=== PATIENT | female | born 1940 | race Caucasian/White ===

== ENCOUNTER 2018-12-20 08:13 | Observation (INO) | payer OTHER ==
--- OUTSIDE RECORDS SUMMARY | 2018-12-20 08:17 | XMS REPORT | Clinical Summary ---
:1940 Author Organization [facility] Address [address] [place] [address] Care Team Providers Name Role Phone Sharad Martinez MD Primary Care Provider Allergies Active Allergy Reactions Severity Noted Date Comments Olmesartan Penicillins Medications Medication Sig Dispensed Refills Start Date End Date Status allopurinol Take 100 mg by 3 03/20/2017 Active (ZYLOPRIM) 100 MG mouth once tablet daily. BROVANA 15 mcg/2 USE 1 VIAL IN 2 04/03/2017 Active mL solution for NEBULIZER EVERY nebulization 12 HOURS atorvastatin TAKE 1 TABLET 3 03/18/2017 Active (LIPITOR) 20 MG BY MOUTH EVERY tablet DAY AFTER EVENING MEAL azithromycin Take 250 mg by 2 03/18/2017 Active (ZITHROMAX) 250 MG mouth once tablet daily. budesonide USE 1 VIAL IN 2 03/13/2017 Active (PULMICORT) 0.5 NEBULIZER EVERY mg/2 mL nebulizer 12 HOURS solution carbidopa-levodopa TAKE 1 TABLET 3 04/03/2017 Active (SINEMET) 25-[address] 4 mg per tablet TIMES EVERY DAY FOR RESTLESS LEG SYNDROME clonIDINE TAKE 2 TABLETS 3 04/15/2017 Active (CATAPRES) 0.1 MG BY MOUTH IN THE tablet MORNING AND EVENING AND 1 TABLET AT NOON gabapentin Take 600 mg by 0 02/11/2017 Active (NEURONTIN) 600 mg mouth 4 (four) tablet times a day. GLUCOSAM SUL glucosamine-cho 0 Active NA/CHONDR ndroitn sulf.Na (GLUCOSAMINE-CHOND ROITN SULF.NA ORAL) flaxseed 1,000 mg flaxseed 0 Active capsule aspirin (ECOTRIN) Take 81 mg by 0 Active 81 MG enteric mouth daily. coated tablet amLODIPine Take 1 tablet 180 tablet 3 04/21/2017 Active (NORVASC) 5 mg (5 mg total) by tablet mouth 2 (two) times a day. losartan (COZAAR) TAKE 1 TABLET 30 tablet 0 12/17/2018 Active 100 MG tablet BY MOUTH EVERY DAY losartan (COZAAR) Take 1 tablet 90 tablet 3 04/21/2017 Discontinued 100 MG tablet (100 mg total) 8 by mouth daily. losartan (COZAAR) Take 1 tablet 90 tablet 1 03/18/2018 Discontinued 100 MG tablet (100 mg total) 9 by mouth daily. losartan (COZAAR) TAKE 1 TABLET 30 tablet 0 09/09/2018 Discontinued 100 MG tablet BY MOUTH EVERY 9 DAY losartan (COZAAR) TAKE 1 TABLET 30 tablet 0 10/07/2018 Discontinued 100 MG tablet BY MOUTH EVERY 9 DAY losartan (COZAAR) TAKE 1 TABLET 30 tablet 0 11/22/2018 Discontinued 100 MG tablet BY MOUTH EVERY 9 DAY Active Problems Problem Noted Date HLD (hyperlipidemia) 04/21/2017 Essential hypertension 04/21/2017 Carotid artery disease 04/21/2017 Aortic valve stenosis 04/21/2017 Abnormal EKG 04/21/2017 Dizziness 04/21/2017 Bilateral carotid bruits 04/21/2017 Chest pain 04/21/2017 AVD (aortic valve disease) 04/21/2017 Encounters Date Type Specialty Care Team Description 12/17/2018 Refill Cardiology Enmanuel Fisher MD Med Refill 11/19/2018 Refill Cardiology Enmanuel Fisher MD Med Refill 11/05/2018 Refill Cardiology Enmanuel Fisher MD Med Refill 10/07/2018 Refill Cardiology Enmanuel Fisher MD Med Refill 09/20/2018 Hospital Encounter Radiology Song Puente MD Preop testing 09/20/2018 Transcribe Orders Radiology System, Provider Not Preop testing ( Primary In, Dx) Song Puente MD 09/09/2018 Refill Cardiology Enmanuel Fisher MD Med Refill 03/18/2018 Refill Cardiology Felix, Med Refill ARIELLA Venegas after 12/19/2017 Social History Tobacco Use Types Packs/Day Years Used Date Never Assessed Sex Assigned at Date Recorded Not on file Job Start Date Occupation Industry Not on file Not on file Not on file Travel History Travel Start Travel End No recent travel history available. Last Filed Vital Signs Not on file Plan of Treatment Date Type Specialty Care Team Description 01/11/2019 Office Visit Cardiology Enmanuel Fisher MD [address] [address] Health Maintenance Due Date Last Done Comments SHINGLES VACCINES (#1) 1989 65+ PNEUMOCOCCAL VACCINE (1 of 2 - PCV13) 2004 PNEUMOCOCCAL POLYSACCHARIDE VACCINE AGE 65 AND OVER 2004 INFLUENZA VACCINE 04/07/2019 Procedures Procedure Name Priority Date/Time Associated Diagnosis Comments XR CHEST 2 VW Routine 09/20/2018 11:59 AM Preop testing Results for this [facility]I SPECIALIST procedure are in the results section. after 12/19/2017 Results XR Chest 2 Vw (09/20/2018 11:59 AM QI SPECIALIST) Narrative Performed At EXAMINATION:XR CHEST 2 VW RADIANT CLINICAL HISTORY:Z01.818 Encounter for other preprocedural examination, PREOP COMPARISON:2 view chest from 02/16/2017 IMPRESSION: PA and lateral radiographs of the chest was submitted for interpretation. Vague airspace disease is seen within the right middle lobe which is nonspecific and can be better evaluated with CT chest. This may represent scarring, however, appears slightly more prominent on today's examination than prior. No pleural effusion or pneumothorax. No midline shift. The mediastinal contours and cardiac silhouette are unchanged. Atherosclerotic disease. The bones are unremarkable. Osteopenia is noted. Changes consistent with prior vertebroplasty are seen at the level of L1. [facility] [id number] Procedure Note Hm Interface, Radiology Results Incoming - 09/20/2018 12:06 PM QI SPECIALIST EXAMINATION: XR CHEST 2 VW CLINICAL HISTORY: Z01.818 Encounter for other preprocedural examination, PREOP COMPARISON: 2 view chest from 02/16/2017 IMPRESSION: PA and lateral radiographs of the chest was submitted for interpretation. Vague airspace disease is seen within the right middle lobe which is nonspecific and can be better evaluated with CT chest. This may represent scarring, however, appears slightly more prominent on today's examination than prior. No pleural effusion or pneumothorax. No midline shift. The mediastinal contours and cardiac silhouette are unchanged. Atherosclerotic disease. The bones are unremarkable. Osteopenia is noted. Changes consistent with prior vertebroplasty are seen at the level of L1. [facility] [id number] Performing Organization Address City/State/Zipcode Phone Number [id number] [place] [address] after 12/19/2017 Insurance Payer Benefit Plan / Group Subscriber ID Type Phone Address A[employer]NA MEDICARE AETNA MEDICARE HMO/PPO [facility] xxxxxxxx HMO Advance Directives Patient has advance care planning documents on file. For more information, please contact:[id number] [place] [address]
--- OUTSIDE RECORDS SUMMARY | 2018-12-20 08:17 | XMS REPORT ---
:1940 Author Organization [facility] Address [address] Sosa [address] [place] [id number] Care Team Providers Name Role Phone Unavailable Unavailable Unavailable Payers Payer Name Policy Type Policy Number Effective Date Expiration Date Problems This patient has no known problems. Allergies, Adverse Reactions, Alerts Allergy Name Allergy Status Severity Reaction(s) Onset Inactive Treating Comments Type Date Date Clinician Penicillins DA Active DC 2018-09 00:00:0 0 adhesive DA Active MO 2018-09 00:00:0 0 olmesartan DA Active MO 2018-09 00:00:0 0 Penicillins DA Active DC 2015-02 00:00:0 0 olmesartan DA Active MO 2015-02 00:00:0 0 Medications This patient has no known medications.
[2018-12-20 09:06] LABS: Absolute Lymphocytes (CBC) 2.2 K/uL (0.7-4.9); Absolute Neutrophil 6.8 K/uL (1.8-8.0); Basophils % 0.9 % (0-1.3); Eosinophils % 2.6 % (0-4.4); Hematocrit 31.9 % (36.0-45.0); MPV 8.9 fL (7.6-11.3); Monocytes % 9.6 % (3.3-12.3); RBC Red Blood Cell Count 3.48 M/uL (3.86-4.86)
[2018-12-20] MEDS ORDERED: CIPROFLOXACIN 400mg IV 0 MG/0 ML BAG IV ONE (09:07)
[2018-12-20] MEDS ORDERED: METRONIDAZOLE 500mg IVPB 500 MG/100 ML BAG IV ONE (09:07)
[2018-12-20 09:10] LABS: Protime INR 0.96
--- NOTE | 2018-12-20 09:10 | RAD REPORT ---
EXAM DESCRIPTION: RAD - Chest Single View - 12/20/2018 9:03 am CLINICAL HISTORY: ABDOMINAL DISTENTION Chest pain. COMPARISON: Chest Pa And Lat (2 Views) dated 12/01/2017; Chest Single View dated 10/28/2016; CHEST PA AND LAT 2 VIEW dated 08/28/2013; CHEST SINGLE VIEW dated 07/18/2013 FINDINGS: Portable technique limits examination quality. Emphysematous changes are present throughout the lungs. Ill-defined opacities in right lower lobe not ed suspicious for developing pneumonia. The heart is normal in size. No displaced fractures. IMPRESSION: Developing right lower lobe pneumonia.
--- NOTE | 2018-12-20 09:35 | RAD REPORT ---
EXAM DESCRIPTION: US - Abdomen Exam Limited - 12/20/2018 9:15 am CLINICAL HISTORY: ABD PAIN COMPARISON: Abdomen Exam Complete dated 05/28/2016 FINDINGS: The gallbladder demonstrates no gallstones. No pericholecystic fluid or gallbladder wall t hickening. The common bile duct is mildly prominent measuring 8-9 mm.. The liver demonstrates no findings of intrahepatic biliary dilatation. IMPRESSION: No evidence of gallstones. Upper limit of normal CBD for age.
[2018-12-20 09:44] LABS: AST/SGOT 14 U/L (15-37); Albumin 3.4 g/dL (3.4-5.0); Alkaline Phosphatase 78 U/L (45-117); BUN Blood Urea Nitrogen 54 mg/dL (7-18); Bicarbonate 26 mmol/L (21-32); Bilirubin Direct 0.1 mg/dL (0-0.2); Bilirubin Total 0.3 mg/dL (0.2-1.0); Glucose Level 99 mg/dL (74-106); Lipase 125 U/L (73-393); Magnesium 2.7 mg/dL (1.8-2.4); NT PRO-BNP 438 pg/mL (<450); Potassium 4.8 mmol/L (3.5-5.1); Sodium Level 144 mmol/L (136-145); Troponin (Emerg Dept Use Only) < 0.02 ng/mL (0.0-0.045)
[2018-12-20 09:46] LABS: ALT/SGPT < 6 U/L (12-78)
[2018-12-20] MEDS ORDERED: Levofloxacin500mg IV 500 MG/100 ML BAG IV ONE (10:13)
--- NOTE | 2018-12-20 10:57 | RAD REPORT ---
EXAM DESCRIPTION: CT - Abdomen Pelvis Wo Contrast - 12/20/2018 10:43 am CLINICAL HISTORY: Abdominal pain with vomiting for several months COMPARISON: 11/2017 TECHNIQUE: Computed axial tomography of the abdomen and pelvis was obtained. IV was not requested. O ral contrast was given. Coronal reconstructions performed. All CT scans are performed using dose optimization technique as appropriate and may include automated exposure control or mA/KV adjustment according to patient size. FINDINGS: The evaluation of solid organs and vessels is limited secondary to the lack of contrast a dministration. Small renal cysts. Small hepatic cysts. Splenic granulomata. Atrophic pancreas. An adrenal mass is not seen. A moderate amount of stool is present throughout the colon. The cecum is mildly distended measuring 7 millimeters There is no evidence of diverticulitis. Moderate anterior subluxation of L5 on S1 with obliteration of the disc space. Spondylolysis L5. Ceme nt has been placed into an old compression fracture of L1. [id number] compression of the spinal canal present Mild right upper lobe consolidation. Mild to moderate patchy right lower lobe opacities. IMPRESSION: Right pneumonia Moderate amount stool within the colon. Mild cecal distention
--- NOTE | 2018-12-20 11:03 | EDPHYS ---
Physician Documentation [facility] Name: Ninfa Olsen Age: 78 yrs Sex: Female : 1940 Arrival Date: 12/20/2018 Time: 08:14 Bed 18 Private MD: Connie Martinez C ED Physician Mg Elizalde HPI: 12/20 08:47 This 78 yrs old Female presents to ER via Ambulatory with complaints of aj Abdominal Pain. 08:47 The patient presents with abdominal pain abdominal distention in the epigastric area, aj in the upper abdomen, in the lower abdomen. Onset: The symptoms/episode began/occurred 2 day(s) ago. The patient presents to the emergency department with nausea. Possible causes: unknown. The symptoms are aggravated by movement, pressure, food , The symptoms are alleviated by nothing. remaining still. The symptoms do not radiate. Associated signs and symptoms: Pertinent positives: chest pain. Historical: - Allergies: 08:17 Benicar; ss 08:17 PENICILLINS; ss - Home Meds: 08:25 clonidine HCl 0.1 mg Oral tab [Active]; atorvastatin 20 mg oral tab 1 tab once daily ss [Active]; carbidopa-levodopa 25/200 mg 1 tab at 1530 and 1 tab at bedtime Oral tab [Active]; allopurinol 100 mg Oral tab 1 tab once daily [Active]; gabapentin oral oral [Active]; hydralazine 10 mg Oral tab 1 tab 2 times per day [Active]; aspirin 81 mg Oral TbEC 1 tab once daily [Active]; restasis [Active]; trelegy INH [Active]; Ranitidine Oral once daily [Active]; O2 at night 2L NC [Active]; tramadol HCL 50 mg PRN [Active]; nisoldipine 8.5 mg oral Tb24 1 tab once daily [Active]; - PMHx: 08:17 COPD; Hypertension; ss 08:25 High Cholesterol; ss - PSHx: 08:17 feet surgery; Glaucoma; Bladder suspension; Hysterectomy; shoulder; ss - Immunization history:: Adult Immunizations up to date. - Social history:: Smoking status: Patient/guardian denies using tobacco, but has a distant history of tobacco abuse. - Ebola Screening: : Patient denies exposure to infectious person Patient denies travel to an Ebola-affected area in the 21 days before illness onset. - Family history:: not pertinent. ROS: 08:47 Constitutional: Negative for fever, chills, and weight loss, Eyes: Negative for injury, aj pain, redness, and discharge, ENT: Negative for injury, pain, and discharge, Neck: Negative for injury, pain, and swelling, Cardiovascular: Negative for chest pain, palpitations, and edema, Respiratory: Negative for shortness of breath, cough, wheezing, and pleuritic chest pain, Back: Negative for injury and pain, : Negative for injury, bleeding, discharge, and swelling, MS/Extremity: Negative for injury and deformity, Skin: Negative for injury, rash, and discoloration, Neuro: Negative for headache, weakness, numbness, tingling, and seizure, Psych: Negative for depression, anxiety, suicide ideation, homicidal ideation, and hallucinations, Allergy/Immunology: Negative for hives, rash, and allergies, Endocrine: Negative for neck swelling, polydipsia, polyuria, polyphagia, and marked weight changes, Hematologic/Lymphatic: Negative for swollen nodes, abnormal bleeding, and unusual bruising. 08:47 Abdomen/GI: Positive for abdominal pain, abdominal cramps, abdominal distension, of the right upper quadrant, left upper quadrant, right lower quadrant and left lower quadrant. Exam: 08:47 Constitutional: This is a well developed, well nourished patient who is awake, alert, aj and in no acute distress. Head/Face: Normocephalic, atraumatic. Eyes: Pupils equal round and reactive to light, extra-ocular motions intact. Lids and lashes normal. Conjunctiva and sclera are non-icteric and not injected. Cornea within normal limits. Periorbital areas with no swelling, redness, or edema. ENT: Nares patent. No nasal discharge, no septal abnormalities noted. Tympanic membranes are normal and external auditory canals are clear. Oropharynx with no redness, swelling, or masses, exudates, or evidence of obstruction, uvula midline. Mucous membranes moist. Neck: Trachea midline, no thyromegaly or masses palpated, and no cervical lymphadenopathy. Supple, full range of motion without nuchal rigidity, or vertebral point tenderness. No Meningismus. Chest/axilla: Normal chest wall appearance and motion. Nontender with no deformity. No lesions are appreciated. Cardiovascular: Regular rate and rhythm with a normal S1 and S2. No gallops, murmurs, or rubs. Normal PMI, no JVD. No pulse deficits. Respiratory: Lungs have equal breath sounds bilaterally, clear to auscultation and percussion. No rales, rhonchi or wheezes noted. No increased work of breathing, no retractions or nasal flaring. Back: No spinal tenderness. No costovertebral tenderness. Full range of motion. Female : Normal external genitalia. Skin: Warm, dry with normal turgor. Normal color with no rashes, no lesions, and no evidence of cellulitis. MS/ Extremity: Pulses equal, no cyanosis. Neurovascular intact. Full, normal range of motion. Neuro: Awake and alert, GCS 15, oriented to person, place, time, and situation. Cranial nerves II-XII grossly intact. Motor strength 5/5 in all extremities. Sensory grossly intact. Cerebellar exam normal. Normal gait. Psych: Awake, alert, with orientation to person, place and time. Behavior, mood, and affect are within normal limits. 08:47 Abdomen/GI: Inspection: distension, Bowel sounds: hyperactive, Palpation: mild abdominal tenderness, in the right upper quadrant, left upper quadrant, right lower quadrant and left lower quadrant, Liver: no appreciated palpable abnormalities, Hernia: not appreciated. Vital Signs: 08:17 BP 161 / 73; Pulse 74; Resp 18; Temp 98.7(TE); Pulse Ox 91% on R/A; Weight 51.71 kg; ss Height 5 ft. 0 in. (152.40 cm); Pain 8/10; 10:00 BP 104 / 68; Pulse 61; Resp 17; Pulse Ox 93% on R/A; sg 12:40 BP 97 / 51; Pulse 55 MON; Resp 18; Temp 98.7; Pulse Ox 98% on R/A; sg 08:17 Body Mass Index 22.26 (51.71 kg, 152.40 cm) MDM: 08:27 Patient medically screened. [facility] 08:51 Data reviewed: vital signs, nurses notes, lab test result(s), EKG, radiologic studies, [facility] CT scan, plain films, ultrasound. 12/20 08:43 Order name: Basic Metabolic Panel; Complete Time: 10:13 [facility] 12/20 08:43 Order name: CBC with Diff; Complete Time: 09:23 [facility] 12/20 08:43 Order name: LFT's; Complete Time: 10:13 [facility] 12/20 08:43 Order name: Magnesium; Complete Time: 10:13 [facility] 12/20 08:43 Order name: NT PRO-BNP; Complete Time: 10:13 [facility] 12/20 08:43 Order name: PT-INR; Complete Time: 09:23 [facility] 12/20 08:43 Order name: Troponin (emerg Dept Use Only); Complete Time: 10:13 [facility] 12/20 08:43 Order name: XRAY Chest (1 view); Complete Time: 09:23 [facility] 12/20 08:43 Order name: Lipase; Complete Time: 10:13 [facility] 12/20 08:43 Order name: US Abdomen Limited; Complete Time: 10:13 [facility] 12/20 09:24 Order name: Blood Culture Adult (2) [facility] 12/20 10:14 Order name: CT Abd/Pelvis - Without Cont: no iv, oral only; Complete Time: 10:58 [facility] 12/20 10:56 Order name: Urine Dipstick--Ancillary (enter results) 12/20 08:33 Order name: EKG; Complete Time: 08:33 12/20 08:43 Order name: Cardiac monitoring; Complete Time: 09:01 [facility] 12/20 08:43 Order name: EKG - Nurse/Tech; Complete Time: 09:01 [facility] 12/20 08:43 Order name: IV Saline Lock; Complete Time: 09:00 [facility] 12/20 08:43 Order name: Labs collected and sent; Complete Time: 09:00 [facility] 12/20 08:43 Order name: O2 Per Protocol; Complete Time: 09:00 [facility] 12/20 08:43 Order name: O2 Sat Monitoring; Complete Time: 09:00 aj Administered Medications: 09:20 Drug: NS 0.9% 500 ml Route: IV; Rate: bolus; Site: right forearm; sg 09:24 Not Given (Duplicate Order): Cipro 400 mg 200 ml IVPB once over 60 mins aj 09:55 Drug: NS 0.9% 1000 ml Route: IV; Rate: 125 ml/hr; Site: right forearm; sg 10:00 Drug: LevaQUIN 500 mg Volume: 100 ml; Route: IVPB; Infused Over: 60 mins; Site: right sg forearm; 11:00 Drug: Flagyl 500 mg Volume: 100 ml; Route: IVPB; Rate: 200 ml/hr; Infused Over: 30 sg mins; Site: right forearm; 11:16 Drug: Xopenex 1.25 mg Route: Inhalation; sg 11:16 Drug: AtroVENT Aerosol 0.5 mg Route: Inhalation; sg 12:20 Drug: Rocephin 1 grams Route: IV; Rate: per protocol; Site: right forearm; sg 12:52 Not Given (Patient Refused): Pepcid 20 mg IVP once iw Disposition: 12/20/18 11:02 Hospitalization ordered by Connie Martinez for Inpatient Admission. Preliminary diagnosis are Pneumonia, unspecified organism, Abdominal tenderness, Constipation. - Bed requested for Telemetry/MedSurg (Inpatient). - Status is Inpatient Admission. sg - Condition is Fair. - Problem is new. - Symptoms have improved. UTI on Admission? No Signatures: Dispatcher [employer] EDMS Clementina Sosa RN RN Drew Smith RN RN Mg Elizalde MD MD cha Smirch, Shelby, RN RN Talia Block RN iw Corrections: (The following items were deleted from the chart) 10:14 08:44 Abdomen Pelvis W Con+CT.RAD.BRZ ordered. [facility] EDMS 10:17 10:14 Abdomen ordered. [facility] EDMS 12:08 11:02 Hospitalization Ordered by A Michelle WILSON for Inpatient Admission. Preliminary dw diagnosis is Pneumonia, unspecified organism; Abdominal tenderness; Constipation. Bed requested for Telemetry/MedSurg (Inpatient). Status is Inpatient Admission. Condition is Fair. Problem is new. Symptoms have improved. UTI on Admission? No. aj 13:10 12:08 12/20/2018 11:02 Hospitalization Ordered by A Michelle WILSON for Inpatient Admission. sg Preliminary diagnosis is Pneumonia, unspecified organism; Abdominal tenderness; Constipation. Bed requested for Telemetry/MedSurg (Inpatient). Status is Inpatient Admission. Condition is Fair. Problem is new. Symptoms have improved. UTI on Admission? No. dw
--- NOTE | 2018-12-20 11:03 | ER ---
Nurse's Notes [facility] Name: Ninfa Olsen Age: 78 yrs Sex: Female : 1940 Arrival Date: 12/20/2018 Time: 08:14 Bed 18 Private MD: Connie Martinez C Diagnosis: Pneumonia, unspecified organism;Abdominal tenderness;Constipation Presentation: 12/20 08:14 Presenting complaint: Patient states: upper abdominal pain x 2 days that now radiates ss towards L breast and lower abd. Denies N/V/D. Transition of care: patient was not received from another setting of care. Onset of symptoms was December 18, 2018. Risk Assessment: Do you want to hurt yourself or someone else? Patient reports no desire to harm self or others. Initial Sepsis Screen: Does the patient meet any 2 criteria? No. Patient's initial sepsis screen is negative. Does the patient have a suspected source of infection? No. Patient's initial sepsis screen is negative. Care prior to arrival: None. 08:14 Method Of Arrival: Ambulatory ss 08:14 Acuity: RILEY 3 ss Historical: - Allergies: 08:17 Benicar; ss 08:17 PENICILLINS; ss - Home Meds: 08:25 clonidine HCl 0.1 mg Oral tab [Active]; atorvastatin 20 mg oral tab 1 tab once daily ss [Active]; carbidopa-levodopa 25/200 mg 1 tab at 1530 and 1 tab at bedtime Oral tab [Active]; allopurinol 100 mg Oral tab 1 tab once daily [Active]; gabapentin oral oral [Active]; hydralazine 10 mg Oral tab 1 tab 2 times per day [Active]; aspirin 81 mg Oral TbEC 1 tab once daily [Active]; restasis [Active]; trelegy INH [Active]; Ranitidine Oral once daily [Active]; O2 at night 2L NC [Active]; tramadol HCL 50 mg PRN [Active]; nisoldipine 8.5 mg oral Tb24 1 tab once daily [Active]; - PMHx: 08:17 COPD; Hypertension; ss 08:25 High Cholesterol; ss - PSHx: 08:17 feet surgery; Glaucoma; Bladder suspension; Hysterectomy; shoulder; ss - Immunization history:: Adult Immunizations up to date. - Social history:: Smoking status: Patient/guardian denies using tobacco, but has a distant history of tobacco abuse. - Ebola Screening: : Patient denies exposure to infectious person Patient denies travel to an Ebola-affected area in the 21 days before illness onset. - Family history:: not pertinent. Screenin:15 Abuse screen: Denies threats or abuse. Denies injuries from another. Nutritional sg screening: No deficits noted. Tuberculosis screening: No symptoms or risk factors identified. Never had TB. Fall Risk None identified. Assessment: 08:18 Reassessment: patient reports that she uses O2 VIA NC at night. Baseline O2 is ss approximately 92% on RA. 08:40 General: Appears in no apparent distress. well groomed, well developed, well nourished, sg Behavior is calm, cooperative, appropriate for age. Pain: Complains of pain in abdomen Quality of pain is described as aching, tender. Neuro: Level of Consciousness is awake, alert, obeys commands, Oriented to person, place, time, Check Inspector are equal bilaterally Moves all extremities. Speech is normal, Facial symmetry appears normal. Cardiovascular: Capillary refill is brisk in bilateral fingers Patient's skin is warm and dry. Chest pain is denied. Respiratory: Airway is patent Respiratory effort is even, unlabored, Respiratory pattern is regular, symmetrical, Breath sounds are diminished in right posterior lower lobe. GI: Abdomen is round non-distended, Bowel sounds present X 4 quads. Abd is soft and non tender X 4 quads. : No signs and/or symptoms were reported regarding the genitourinary system. EENT: No signs and/or symptoms were reported regarding the EENT system. Derm: Skin is dry, Skin is normal, Skin temperature is warm. Musculoskeletal: No signs and/or symptoms reported regarding the musculoskeletal system. Vital Signs: 08:17 BP 161 / 73; Pulse 74; Resp 18; Temp 98.7(TE); Pulse Ox 91% on R/A; Weight 51.71 kg; ss Height 5 ft. 0 in. (152.40 cm); Pain 8/10; 10:00 BP 104 / 68; Pulse 61; Resp 17; Pulse Ox 93% on R/A; sg 12:40 BP 97 / 51; Pulse 55 MON; Resp 18; Temp 98.7; Pulse Ox 98% on R/A; sg 08:17 Body Mass Index 22.26 (51.71 kg, 152.40 cm) ED Course: 08:14 Patient arrived in ED. as 08:14 Connie Martinez MD is Private Physician. as 08:16 Triage completed. ss 08:17 Arm band placed on right wrist. ss 08:27 Mg Elizalde MD is Attending Physician. aj 08:44 Drew Smith, RN is Primary Nurse. sg 08:49 EKG done, by furniture technician. reviewed by Mg Elizalde MD. at1 08:54 Initial lab(s) drawn, by me, sent to lab. Inserted saline lock: 20 gauge in right dh3 antecubital area, using aseptic technique. Blood collected. 08:54 First set of blood cultures drawn by wv. 3 09:01 X-ray completed. Portable x-ray completed in exam room. Patient tolerated procedure jb2 well. 09:03 XRAY Chest (1 view) In Process Unspecified. EDMS 09:11 US Abdomen Limited In Process Unspecified. EDMS 09:15 Patient has correct armband on for positive identification. Bed in low position. Call sg light in reach. Pulse ox on. NIBP on. 09:40 Second set of blood cultures drawn by me, by venipuncture 23G to left ac. dh3 10:40 CT completed. Patient tolerated procedure well. Patient moved to CT via wheelchair. Patient moved back from CT. 10:43 CT Abd/Pelvis - Without Cont: no iv, oral only In Process Unspecified. EDMS 11:01 Connie Martinez MD is Hospitalizing Provider. aj 12:41 No provider procedures requiring assistance completed. Patient admitted, IV remains in sg place. intact, No redness/swelling at site. Administered Medications: 09:20 Drug: NS 0.9% 500 ml Route: IV; Rate: bolus; Site: right forearm; sg 09:24 Not Given (Duplicate Order): Cipro 400 mg 200 ml IVPB once over 60 mins aj 09:55 Drug: NS 0.9% 1000 ml Route: IV; Rate: 125 ml/hr; Site: right forearm; sg 10:00 Drug: LevaQUIN 500 mg Volume: 100 ml; Route: IVPB; Infused Over: 60 mins; Site: right sg forearm; 11:00 Drug: Flagyl 500 mg Volume: 100 ml; Route: IVPB; Rate: 200 ml/hr; Infused Over: 30 sg mins; Site: right forearm; 11:16 Drug: Xopenex 1.25 mg Route: Inhalation; sg 11:16 Drug: AtroVENT Aerosol 0.5 mg Route: Inhalation; sg 12:20 Drug: Rocephin 1 grams Route: IV; Rate: per protocol; Site: right forearm; sg 12:52 Not Given (Patient Refused): Pepcid 20 mg IVP once iw Outcome: 11:02 Decision to Hospitalize by Provider. [facility] 13:10 Patient left the ED. sg Signatures: Dispatcher [employer] EDDrew Horne, RN RN Mg Rievrs MD MD cha Buechter, Jesse jb2 Jones, Susan sj Martinez, Amelia as Smirch, Shelby, ANA RN Roxann Butterfield, tightening machine operator EKG Tat1 Lucero Bautista 3 Talia Block RN iw
[2018-12-20] MEDS ORDERED: IPRATROPIUM BROM 0.5MG/2.5ML ONE (11:16)
[2018-12-20] MEDS ORDERED: LEVALBUTEROL 1.25 MG/3 ML NEB ONE (11:17)
[2018-12-20] MEDS ORDERED: CEFTRIAXONE/SWI 1gm 1 GM/10 ML SYR ONE (11:17)
[2018-12-20 12:04] LABS: Urine Blood NEGATIVE (NEG); Urine Glucose NEGATIVE (NEG); Urine Protein NEGATIVE (NEG); Urine Specific Gravity 1.015 (1.005-1.030)
--- NOTE | 2018-12-20 12:19 | EKG ---
Test Date: 2018-12-20 Test Time: 08:31:07 Gum Sprayer: FILIPE MEASUREMENT RESULTS: Intervals: Rate: 60 NH: 150 QRSD: 134 QT: 418 QTc: 418 [place]: P: 69 NH: 150 QRS: -32 T: 51 INTERPRETIVE STATEMENTS: Normal sinus rhythm with sinus arrhythmia Left axis deviation Right bundle branch block Abnormal ECG Compared to ECG 10/28/2016 20:45:19 Left-axis deviation now present Electronically Signed On 12-20-18 12:18:19 CDT by Av Kramer
[2018-12-20] MEDS ORDERED: BISACODYL 10 MG RECTAL SUPP PR PRN (13:08)
[2018-12-20] MEDS ORDERED: ONDANSETRON 4 MG/2 ML VIAL IV PRN (13:08)
[2018-12-20] MEDS ORDERED: ALBUTEROL 2.5 MG/3 ML NEB SOL NEB PRN (13:08)
[2018-12-20] MEDS ORDERED: IPRATROPIUM BROM 0.5MG/2.5ML NEB PRN (13:08)
[2018-12-20] MEDS ORDERED: ACETAMINOPHEN 325 MG TABLET PO PRN (13:08)
[2018-12-20] MEDS ORDERED: MORPHINE 2 MG/ML SYR IV PRN (13:08)
[2018-12-20 13:44] VITALS: BMI 25.0
[2018-12-20] MEDS: NA CHLORIDE 0.9% 1,000 ML IV SCH (15:42)
[2018-12-20] MEDS: FAMOTIDINE 20 MG/2 ML VIAL IV SCH (21:19)
[2018-12-20] MEDS ORDERED: DIPHENHYDRAMINE 25 MG PO PRN (22:47)
[2018-12-20] MEDS ORDERED: TRAMADOL HCL 50 MG PO PRN (22:47)
[2018-12-21] MEDS: NA CHLORIDE 0.9% 1,000 ML IV SCH ×2 (01:19→08:27)
[2018-12-21 07:17] LABS: Absolute Lymphocytes (CBC) 1.6 K/uL (0.7-4.9); Absolute Neutrophil 6.5 K/uL (1.8-8.0); Basophils % 0.7 % (0-1.3); Eosinophils % 2.4 % (0-4.4); Hematocrit 32.2 % (36.0-45.0); Lymphocytes % 17.2 % (15.3-44.8); MPV 9.1 fL (7.6-11.3); Monocytes % 10.3 % (3.3-12.3); RBC Red Blood Cell Count 3.45 M/uL (3.86-4.86)
[2018-12-21 07:36] LABS: Potassium 4.3 mmol/L (3.5-5.1)
[2018-12-21] MEDS ORDERED: BISACODYL 10 MG RECTAL SUPP PR ONE (07:38)
[2018-12-21] MEDS ORDERED: POLYETHYL GLY 3350 17 GM/DOSE PO ONE (07:38)
[2018-12-21] MEDS: FAMOTIDINE 20 MG/2 ML VIAL IV SCH (08:28)
[2018-12-21 08:31] VITALS: BP 153/59; TEMP 97.2
--- NOTE | 2018-12-21 08:51 | RAD REPORT ---
EXAM DESCRIPTION: Lilliana Single View12/21/2018 6:57 am CLINICAL HISTORY: Chest pain COMPARISON: December 20 FINDINGS: Small right pleural effusion has developed. Right basilar lung opacities are without signi ficant change. No other change noted IMPRESSION: Development of a small right pleural effusion. No change in the right basilar pneumonia
[2018-12-21] MEDS ORDERED: HOME MED 1 EA UNK (Ranitidine [Zantac*] 150 MG) PO SCH (09:00)
[2018-12-21] MEDS ORDERED: ALLOPURINOL 100 MG PO SCH (09:00)
[2018-12-21] MEDS ORDERED: Levofloxacin500mg IV 500 MG/100 ML BAG IV SCH (09:00)
[2018-12-21] MEDS ORDERED: CARBIDOPA PO SCH (09:00)
[2018-12-21] MEDS ORDERED: HOME MED 1 EA UNK (Fluticasone/Umeclidin/Vilanter [Trelegy Ellipta 100-62.5-25] 1 EACH) IH SCH (09:00)
[2018-12-21] MEDS ORDERED: HYDRALAZINE HCL 10 MG PO SCH (09:00)
[2018-12-21] MEDS ORDERED: GABAPENTIN 1200 MG PO SCH (09:00)
[2018-12-21] MEDS ORDERED: CLONIDINE HCL 0.1 MG PO SCH (09:00)
[2018-12-21] MEDS ORDERED: LEVODOPA PO SCH (09:00)
[2018-12-21] MEDS ORDERED: HOME MED 1 EA UNK (Cyclosporine [Restasis] 1 DROP) EACH EYE SCH (09:00)
[2018-12-21] MEDS ORDERED: HOME MED 1 EA UNK (Aspirin Chewable [Aspirin Chewable*] 81 MG) PO SCH (09:00)
--- NOTE | 2018-12-21 09:03 | EKG ---
Test Date: 2018-12-21 Test Time: 08:14:33 Belt Line Feeder: LUCY MEASUREMENT RESULTS: Intervals: Rate: 67 NJ: 148 QRSD: 122 QT: 396 QTc: 418 [place]: P: 57 NJ: 148 QRS: -36 T: 39 INTERPRETIVE STATEMENTS: Normal sinus rhythm Left axis deviation Right bundle branch block Abnormal ECG Compared to ECG 12/20/2018 08:31:07 Sinus arrhythmia no longer present Electronically Signed On 12-21-18 09:02:47 CDT by Av Kramer
[2018-12-21 09:50] VITALS: O2SAT 95
--- NOTE | 2018-12-21 09:58 | HP ---
Date of Admission: 12/20/2018 Chief Complaint: Abdominal pain. History Of Present Illness: This is a 78-year-old pleasant female patient who has some constipation and abdominal pain, describing as cramping type pain off and on for last 3 days. She denies any feve r, chills, nausea or vomiting. No bleeding. She has chronic cough and shortness of breath with acti vity, which is nothing different than her usual baseline. After she came into emergency room, she wa s evaluated in the ER and subsequently admitted to the hospital under my service. When I saw her, he r was present with her at bedside. Allergies: TO PENICILLIN CAUSING SWELLING OF FACE AND BENICAR CAUSING SEVERE HYPOTENSION AND SYNCOPE . Medications: List reviewed. Review of Systems: GI: As mentioned above. Respiratory: As mentioned above. All other systems reviewed and negative. Past Medical History: Significant for hypertension, chronic kidney disease stage 3, COPD, impaired f asting glucose, mixed hyperlipidemia, diverticulosis, anemia due to chronic kidney disease, gastroeso phageal reflux disease, melanoma. Past Surgical History: Significant for hysterectomy and removal of melanoma from her face. Family History: Significant for colon polyps, lung cancer, congestive heart failure. Social History: Prior history of smoking, not at present time. Use of alcohol negative. Physical Examination: Vital Signs: When she first came into emergency room, vital signs included temperature 98.7, pulse 7 4, respiratory rate 18, blood pressure 161/73, 91% oxygen saturation. Height 5 feet, weight 128 poun ds. General: Awake, alert, oriented, not in distress. HEENT: Head atraumatic, normocephalic. Conjunctivae nonerythematous. Sclerae white. Mouth, no thr ush or edema noted. Ears/Nose, no mass, lesion, discharge noted. Neck: Supple. No JVD, lymph nodes, bruit, thyromegaly noted. Lungs: Presence of some rales in the right lower lung region. Not using accessory muscles of respir ation. Heart: Normal heart sounds, no murmur or gallop. Abdomen: Soft, slightly appears to be distended in the lower abdomen due to distended bladder, which was confirmed with percussion. No guarding, rigidity, tenderness. No rebound tenderness. No hepat osplenomegaly. Bowel sounds normoactive. Extremities: No leg edema. No calf tenderness. Skin: No rash, ulcer, cellulitis. Lymphatics: No lymph node enlargement in neck, supraclavicular, infraclavicular region. Neuro: No focal neurological deficit. Chest: Unremarkable. External Genitalia: Deferred. Rectal: Deferred. Laboratory Data: White count 10.4, hemoglobin 10.5, platelets 258. INR 0.96. Sodium 144, potassium 4.8, chloride 108, bicarb 26, BUN 54, creatinine 1.91, glucose 99. Liver function tests unremarkabl e. Troponin less than 0.02. Lipase 125. Urinalysis negative. Her CAT scan of the abdomen and pelv is done in the emergency room shows evidence of right-sided pneumonia, moderate amount of stool withi n colon with mild cecal distention. Chest x-ray shows right lower lobe pneumonia. Abdominal ultraso und shows no evidence of gallstones, and electrocardiogram shows normal sinus rhythm. No acute ST-T changes. Impression: 1.Pneumonia. 2.Constipation. 3.Chronic kidney disease stage 3 with acute worsening. 4.Anemia due to chronic kidney disease. 5.Chronic obstructive pulmonary disease. 6.Hypertension. 7.Mixed hyperlipidemia. 8.Impaired fasting glucose. 9.Gastroesophageal reflux disease. 10.Diverticulosis. Plan: Admit the patient to hospital for further evaluation and management of this problem. The vidal ent is appropriate for inpatient and is expected to spend 2 midnights in hospital. Home medications will be continued per order. We will give empiric antibiotics. Ambulation was encouraged. DVT prop hylaxis will be given per order. I will see her tomorrow for followup. Details and plan of treatmen t discussed with the patient. Treatment for constipation will be given, and I did discuss with her d imani about plan of treatment. MELITA/MODL Voice ID: [id number]
[2018-12-21] MEDS ORDERED: ATORVASTATIN CALCIUM 20 MG PO SCH (21:00)
--- NOTE | 2018-12-23 03:01 | DS ---
Date of Discharge: 12/21/2018 Disposition: Discharged to go home. Physical Examination: HEENT: Unremarkable. Lungs: Clear to auscultation except basal rales, unchanged. Heart: Sounds normal. Abdomen: Soft. Bowel sounds normal. No guarding, rigidity, tenderness, distention. Discharge Medications And Instructions: 1. Continue all prior home medications. 2. Take Levaquin 250 mg p.o. daily for 10 days. 3. Follow up at office in 2 weeks. 4. Senokot-S 2 tablets p.o. daily. 5. MiraLAX 17 g powder once a day as needed for constipation. Laboratory Data: Labs done during this hospitalization; white count yesterday 10.4, hemoglobin 10.5, platelets 258. Sodium yesterday was 144, potassium 4.8, chloride 108, bicarb 26, BUN 54, creatinine 1.91, glucose 99. This morning, BUN 36, creatinine 1.48, glucose 87. Troponin less than 0.02 x3. Hospital Course: A 78-year-old female patient admitted to the hospital after she came into emergency room with complaints of abdominal pain. The patient has COPD and chronic cough with shortness of breath with activity, which is chronic and unchanged. After she was evaluated in the ER, she had workup done, that included routine labs, CAT scan, chest x-ray. Her CAT scan showed evidence of constipation problem along with infiltrate in the lower lung region. Chest X also reveal such changes. The patient was given Dulcolax rectal suppository and had good results with that yesterday. I ordered another Dulcolax suppository for this morning and MiraLAX. She felt like yesterday that her abdomen was distended and this morning, she feels much better. Her abdomen is soft and nontender. The patient feels much better. Medically, she is stable for discharge and was discharged in stable condition with above- mentioned medications and instructions. Final Diagnoses: 1. Pneumonia. 2. Constipation. 3. Chronic kidney disease stage 3 with acute worsening. 4. Anemia due to chronic kidney disease. 5. Chronic obstructive pulmonary disease. 6. Hypertension. 7. Mixed hyperlipidemia. 8. Impaired fasting glucose. 9. Gastroesophageal reflux disease. 10. Diverticulosis. MELITA/MODL Voice ID: [id number] Report ID: [id number] MTDD
== END 2018-12-21 12:01 | disposition home or self-care (01) ==
LOC: ER 08:13 → INTOOBSV 11:03 → ERHOLD 11:03 → 4TH 12:53
PROVIDERS: ADMIT Internal Medicine; ATTEND Internal Medicine
DX: J18.9 Pneumonia, unspecified organism (principal); K59.00 Constipation, unspecified; I12.9 Hypertensive chronic kidney disease with stage 1 through stage 4 chronic kidney disease, or unspecified chronic kidney disease; N18.3 Chronic kidney disease, stage 3 (moderate); D63.1 Anemia in chronic kidney disease; J44.9 Chronic obstructive pulmonary disease, unspecified; E78.2 Mixed hyperlipidemia; R73.01 Impaired fasting glucose; K21.9 Gastro-esophageal reflux disease without esophagitis; K57.90 Diverticulosis of intestine, part unspecified, without perforation or abscess without bleeding; Z87.891 Personal history of nicotine dependence; Z88.0 Allergy status to penicillin
CPT/HCPCS: 93005 ×2; 87040 ×2; 85025 ×2; 80048 ×2; 36415; 83735; 85610; 80076; 81003; 84484 ×3; 83690; 83880 ×2; 74176; 71045 ×2; 76705; 94760 ×2; 96375; 96374; 99285; J0696; J7030 ×3; G0378 ×2; J0744

== ENCOUNTER 2019-01-17 14:10 | Emergency (ER) | payer OTHER ==
--- OUTSIDE RECORDS SUMMARY | 2019-01-17 14:25 | XMS REPORT | Clinical Summary ---
:1940 Author Organization [facility] Address [address] [place] [address] Care Team Providers Name Role Phone Sharad [...] (COZAAR) TAKE 1 TABLET 30 tablet 0 01/17/2019 Active 100 MG tablet BY MOUTH EVERY [...] TAKE 1 TABLET 30 tablet 0 12/17/2018 Discontinued 100 MG tablet BY MOUTH EVERY 9 DAY Active Problems Problem Noted Date HLD (hyperlipidemia) 04/21/2017 Essential hypertension 04/21/2017 Carotid artery disease 04/21/2017 Aortic valve stenosis 04/21/2017 Abnormal EKG 04/21/2017 Dizziness 04/21/2017 Bilateral carotid bruits 04/21/2017 Chest pain 04/21/2017 AVD (aortic valve disease) 04/21/2017 Encounters Date Type Specialty Care Team Description 01/11/2019 Refill Cardiology Enmanuel Fisher MD Med Refill 12/17/2018 Refill Cardiology Enmanuel Fisher MD Med [...] Fisher MD Med Refill 03/18/2018 Refill Cardiology Felix Med Refill ARIELLA Venegas after 01/16/2018 Social History Tobacco Use Types Packs/Day Years Used Date Never Assessed Sex Assigned at Date Recorded Not on file Job Start Date Occupation Industry Not on file Not on file Not on file Travel History Travel Start Travel End No recent travel history available. Last Filed Vital Signs Not on file Plan of Treatment Date Type Specialty Care Team Description 01/18/2019 Office Visit Cardiology Enmanuel Fisher MD [address] [facility] [address] [place] [address] [id number] Health Maintenance Due Date Last Done Comments SHINGLES VACCINES (#1) 1989 65+ PNEUMOCOCCAL VACCINE (1 of 2 - PCV13) 2004 PNEUMOCOCCAL POLYSACCHARIDE VACCINE AGE 65 AND OVER 2004 INFLUENZA VACCINE 04/07/2019 Procedures Procedure Name Priority Date/Time Associated Diagnosis Comments XR CHEST 2 VW Routine 09/20/2018 11:59 AM Preop testing Results for this CHARGE NURSE procedure are in the results section. after 01/16/2018 Results XR Chest 2 Vw (09/20/2018 11:59 AM CHARGE NURSE) Narrative Performed At EXAMINATION:XR CHEST 2 VW [...] are seen at the level of L1. [id number] Procedure Note Hm Interface, Radiology Results Incoming - 09/20/2018 12:06 PM CHARGE NURSE EXAMINATION: XR CHEST 2 VW CLINICAL HISTORY: [...] are seen at the level of L1. [id number] Organization Address City/State/Zipcode Phone Number [facility] [address] [place] [address] after 01/16/2018 Insurance Payer Benefit Plan / Group Subscriber ID Type Phone Address AETNA MEDICARE AETNA MEDICARE HMO/PPO [facility] xxxxxxxx HMO Advance Directives Patient has advance care planning documents on file. For more information, please contact:[id number] [place] [address]
--- OUTSIDE RECORDS SUMMARY | 2019-01-17 14:26 | XMS REPORT ---
:1940 Author Organization [facility] Address [address] [place] [address] [place] [id number] Care Team Providers Name Role Phone Unavailable Unavailable Unavailable Payers Payer Name Policy Type Policy Number Effective Date Expiration Date Problems This patient has no known problems. Allergies, Adverse Reactions, Alerts Allergy Name Allergy Status Severity Reaction(s) Onset Inactive Treating Comments Type Date Date Clinician Penicillins DA Active [place] 2018-09 00:00:0 0 adhesive DA Active MO 2018-09 00:00:0 0 olmesartan DA Active MO 2018-09 00:00:0 0 Penicillins DA Active GA 2015-02 00:00:0 0 olmesartan DA Active MO 2015-02 00:00:0 0 Medications This patient has no known medications.
--- NOTE | 2019-01-17 15:37 | RAD REPORT ---
EXAM DESCRIPTION: RAD - Knee Left 3 View - 01/17/2019 3:13 pm CLINICAL HISTORY: fall;Pain COMPARISON: No comparisons FINDINGS: No fracture or dislocation seen. Laceration is seen anterior to the proximal tibia. Trace suprapatellar joint effusion.
[2019-01-17] MEDS ORDERED: TETANUS & DIPHTHERIA TOX,ADULT 0.5 ML VIAL ONE (16:49)
--- NOTE | 2019-01-17 16:53 | EDPHYS ---
Physician Documentation [facility] Name: Ninfa Olsen Age: 78 yrs Sex: Female : 1940 Arrival Date: 01/17/2019 Time: 14:25 Bed 10 Private MD: Connie Martinez C ED Physician Tyrese Moscoso HPI: 01/17 16:16 This 78 yrs old Female presents to ER via Ambulatory with complaints of Fall kb Injury, Laceration To Leg. 16:16 Details of fall: The patient fell from an upright position, while walking, tripped and kb fell. Onset: The symptoms/episode began/occurred just prior to arrival. Associated injuries: The patient sustained left knee, abrasion, painful injury. Severity of symptoms: At their worst the symptoms were mild, moderate, in the emergency department the symptoms are unchanged. The patient has not experienced similar symptoms in the past. The patient has not recently seen a physician. 16:23 Pt states she wasn't paying attention to where she was walking and tripped. Landed on kb left knee causing skin tear. Historical: - Allergies: 14:45 Benicar; sv 14:45 PENICILLINS; sv - PMHx: 14:45 COPD; High Cholesterol; Hypertension; sv - Social history:: Smoking status: Patient/guardian denies using tobacco. ROS: 16:23 Constitutional: Negative for fever, chills, and weight loss, Cardiovascular: Negative kb for chest pain, palpitations, and edema, Respiratory: Negative for shortness of breath, cough, wheezing, and pleuritic chest pain, Abdomen/GI: Negative for abdominal pain, nausea, vomiting, diarrhea, and constipation, : Negative for injury, bleeding, discharge, and swelling, MS/Extremity: Negative for injury and deformity, Neuro: Negative for headache, weakness, numbness, tingling, and seizure. 16:23 Skin: Positive for skin tear to lower left knee. Exam: 16:48 Constitutional: This is a well developed, well nourished patient who is awake, alert, kb and in no acute distress. Head/Face: Normocephalic, atraumatic. Chest/axilla: Normal chest wall appearance and motion. Nontender with no deformity. No lesions are appreciated. Cardiovascular: Regular rate and rhythm with a normal S1 and S2. No gallops, murmurs, or rubs. Normal PMI, no JVD. No pulse deficits. Respiratory: Lungs have equal breath sounds bilaterally, clear to auscultation and percussion. No rales, rhonchi or wheezes noted. No increased work of breathing, no retractions or nasal flaring. Abdomen/GI: Soft, non-tender, with normal bowel sounds. No distension or tympany. No guarding or rebound. No evidence of tenderness throughout. MS/ Extremity: Pulses equal, no cyanosis. Neurovascular intact. Full, normal range of motion. Neuro: Awake and alert, GCS 15, oriented to person, place, time, and situation. Cranial nerves II-XII grossly intact. Motor strength 5/5 in all extremities. Sensory grossly intact. Cerebellar exam normal. Normal gait. 16:48 Skin: injury, skin tear noted to left knee. unable to suture due to skin thickness. . Vital Signs: 14:45 BP 135 / 67; Pulse 61; Resp 16; Temp 98; Pulse Ox 96% ; Weight 50.8 kg; Height 5 ft. 0 sv in. (152.40 cm); Pain 0/10; 14:45 Body Mass Index 21.87 (50.80 kg, 152.40 cm) sv MDM: 15:13 Patient medically screened. kb 16:49 Data reviewed: vital signs, nurses notes. Data interpreted: Pulse oximetry: on room air kb is 96 %. Interpretation: normal. Counseling: I had a detailed discussion with the patient and/or guardian regarding: the historical points, exam findings, and any diagnostic results supporting the discharge/admit diagnosis, the need for outpatient follow up, a family practitioner, to return to the emergency department if symptoms worsen or persist or if there are any questions or concerns that arise at home. ED course: half of skin tear approximates, other half is avulsed. steri-strips applied to area that approximates. Surgicel applied, 4x4s and ida wrap. Pt educated to keep leg as straight as possible for the next 24-48 hours to allow healing process to begin. . 16:50 ED course: Educated to keep clean and dry. Prescription given to take if redness, kb swelling or any other signs of infection develop. 01/17 14:46 Order name: Knee Left 3 View XRAY; Complete Time: 15:39 sv 01/17 16:12 Order name: Wound Care: clean and apply steri-strips; Complete Time: 17:00 kb Administered Medications: 16:42 Drug: Tetanus-Diphtheria Toxoid Adult 0.5 ml {Voip Engineer: [employer]. Exp: aj 11/04/2020. Lot #: [id number]. } Route: IM; Site: right deltoid; 17:01 Follow up: Response: No adverse reaction Disposition: 01/17/19 16:52 Discharged to Home. Impression: Fall on same level from slipping, tripping and stumbling, Skin tear of left knee. - Condition is Stable. - Discharge Instructions: Skin Tear Care, Huly-ew-Uirr. - Prescriptions for Bactrim DS 800- 160 mg Oral Tablet - take 1 tablet by ORAL route every 12 hours for 7 days; 14 tablet. - Medication Reconciliation Form, Thank You Letter, Antibiotic Education, Prescription Opioid Use form. - Follow up: Emergency Department; When: As needed; Reason: Worsening of condition. Follow up: Connie Martinez MD; When: 2 - 3 days; Reason: Recheck today's complaints, Continuance of care, Re-evaluation by your physician. Addendum: 01/19/2019 07:02 Co-signature as Attending Physician, Tyrese Moscoso MD. r n Signatures: Dispatcher [employer] EDAshwini Castro, SERVICE TESTER-Priti SERVICE TESTER-Helen Walden RN RN sv Myers, Amanda, RN RN aj Nieto, Roman, MD MD package yarns drying machine operator: (The following items were deleted from the chart) 01/17 17:03 16:52 01/17/2019 16:52 Discharged to Home. Impression: Fall on same level from slipping, tripping and stumbling; Skin tear of left knee. Condition is Stable. Forms are Medication Reconciliation Form, Thank You Letter, Antibiotic Education, Prescription Opioid Use. Follow up: Emergency Department; When: As needed; Reason: Worsening of condition. Follow up: Connie Martinez; When: 2 - 3 days; Reason: Recheck today's complaints, Continuance of care, Re-evaluation by your physician. kb
--- NOTE | 2019-01-17 16:53 | ER ---
Nurse's Notes [facility] Name: Ninfa Olsen Age: 78 yrs Sex: Female : 1940 Arrival Date: 01/17/2019 Time: 14:25 Bed 10 Private MD: Connie Martinez C Diagnosis: Fall on same level from slipping, tripping and stumbling;Skin tear of left knee Presentation: 01/17 14:44 Presenting complaint: Patient states: tripped and fell today onto her left knee and sv leg, skin tear noted to the left knee and bruising noted to the left outer leg. Denies head injury or LOC. Care prior to arrival: bandage applied. Mechanism of Injury: Fall from standing position. Trauma event details: Injury occurred in the [facility], Injury occurred: at home. Injury occurred: January 17, 2019. 14:44 Acuity: RILEY 3 sv 14:44 Method Of Arrival: Ambulatory sv Triage Assessment: 14:44 General: Appears in no apparent distress. uncomfortable, well developed, Behavior is sv calm, cooperative, appropriate for age. Pain: Denies pain. Neuro: Level of Consciousness is awake, alert, obeys commands, Oriented to person, place, time, situation, Moves all extremities. Full function Gait is steady. Respiratory: Respiratory effort is even, unlabored, Respiratory pattern is regular, symmetrical. Derm: Skin is pink, warm \T\ dry. Injury Description: skin tear noted to the left knee and bruising noted to left outer leg. Trauma Activation: Not Applicable Physician: ED Physician; Name: ; Notified At: ; Arrived At: Physician: General Surgeon; Name: ; Notified At: ; Arrived At: Physician: Radiology; Name: ; Notified At: ; Arrived At: Physician: Respiratory; Name: ; Notified At: ; Arrived At: Physician: Lab; Name: ; Notified At: ; Arrived At: Historical: - Allergies: 14:45 Benicar; sv 14:45 PENICILLINS; sv - PMHx: 14:45 COPD; High Cholesterol; Hypertension; sv - Social history:: Smoking status: Patient/guardian denies using tobacco. Screenin:54 Abuse screen: Denies threats or abuse. Denies injuries from another. Nutritional aj screening: No deficits noted. Tuberculosis screening: No symptoms or risk factors identified. Fall Risk None identified. Assessment: 15:54 General: Appears in no apparent distress. comfortable, Behavior is calm, cooperative, aj appropriate for age. Pain: Complains of pain in left knee. Neuro: Level of Consciousness is awake, alert, obeys commands, Oriented to person, place, time, situation, Appropriate for age. Respiratory: Airway is patent Respiratory effort is even, unlabored, Respiratory pattern is regular, symmetrical. Derm: Skin is intact, is healthy with good turgor, Skin is pink, warm \T\ dry. normal. 16:26 Musculoskeletal:. Injury Description: Laceration sustained to left knee is 2.6 to 7.5 aj cm long, bleeding moderately, a small amount of bleeding noted at this time. Vital Signs: 14:45 BP 135 / 67; Pulse 61; Resp 16; Temp 98; Pulse Ox 96% ; Weight 50.8 kg; Height 5 ft. 0 sv in. (152.40 cm); Pain 0/10; 14:45 Body Mass Index 21.87 (50.80 kg, 152.40 cm) sv ED Course: 14:25 Patient arrived in ED. mr 14:25 Connie Martinez MD is Private Physician. mr 14:45 Triage completed. sv 14:46 Arm band placed on. sv 15:12 Knee Left 3 View XRAY In Process Unspecified. EDMS 15:13 [facility] kb 15:13 Tyrese Moscoso MD is Attending Physician. kb 15:39 Roxann Pritchard, RN is Primary Nurse. aj 15:54 Patient has correct armband on for positive identification. aj 16:28 Irrigation of laceration on left knee irrigated with normal saline Hibiclens solution aj Patient tolerated well Small amount of bleeding continued after wound cleaning, pressure dressing applied. 16:43 Assist provider with laceration repair on left knee that was between 2.6 to 7.5 cm aj using Steri-strips. Performed by Ashwini HUERTA Dressed with 4X4s, SIlver nitrate gauze and ida wrap. Patient did not have IV access during this emergency room visit. 16:52 Connie Martinez MD is Referral Physician. kb Administered Medications: 16:42 Drug: Tetanus-Diphtheria Toxoid Adult 0.5 ml {Heavy Mobile Equipment Operator: [employer] Exp: aj 11/04/2020. Lot #: [id number]. } Route: IM; Site: right deltoid; 17:01 Follow up: Response: No adverse reaction aj Outcome: 16:52 Discharge ordered by MD. dietz 17:02 Discharged to home ambulatory. kimberlyn 17:02 Condition: good 17:02 Discharge instructions given to patient, family, Instructed on discharge instructions, follow up and referral plans. medication usage, Demonstrated understanding of instructions, follow-up care, medications, Prescriptions given X 1. 17:03 Patient left the ED. aj Signatures: Dispatcher [employer] EDAshwini Castro, RIANNA-C CONCRETE ROD BUSTER-Helen Walden, RN RN Roxann Medina RN RN aj Rivera, Mary mr
[2019-01-17 20:04] VITALS: BP 135/67; TEMP 98; O2SAT 96
== END 2019-01-17 17:03 | disposition home or self-care (01) ==
LOC: ER 14:10
DX: S80.212A Abrasion, left knee, initial encounter (principal); W01.0XXA Fall on same level from slipping, tripping and stumbling without subsequent striking against object, initial encounter; Y93.01 Activity, walking, marching and hiking; Z23 Encounter for immunization; E78.00 Pure hypercholesterolemia, unspecified; I10 Essential (primary) hypertension; J44.9 Chronic obstructive pulmonary disease, unspecified; Z88.0 Allergy status to penicillin; Z88.8 Allergy status to other drugs, medicaments and biological substances
CPT/HCPCS: 90471; 90714; 99284

== ENCOUNTER 2019-10-25 21:58 | Emergency (ER) | payer OTHER ==
--- OUTSIDE RECORDS SUMMARY | 2019-10-25 22:00 | XMS REPORT ---
:1940 [facility] Address [address] [place] [address] Care Team Providers Name Role Phone Unavailable Unavailable Unavailable Payers Payer Name Policy Type Policy Number Effective Date Expiration Date Problems This patient has no known problems. Allergies, Adverse Reactions, Alerts Allergy Name Allergy Status Severity Reaction(s) Onset Inactive Treating Comments Type Date Date Clinician Penicillins DA Active [place] 2018-09 00:00:0 0 adhesive DA Active [place] 2018-09 00:00:0 0 olmesartan DA Active [place] 2018-09 00:00:0 0 Penicillins DA Active [place] 2015-02 00:00:0 0 olmesartan DA Active [place] 2015-02 00:00:0 0 Medications This patient has no known medications. Encounters Start End Encounter Admission Attending Care Care Encounter Date/Time Date/Time Type Type Clinicians Facility Department ID 2019-04-07 Inpatient U [facility] [id number] 07:46:00 2019-04-06 Inpatient U [facility] 9212 15:01:03 2019-03-14 2019-03-14 Outpatient [facility] [id number] 07:06:00 07:06:00
[2019-10-25] MEDS ORDERED: LIDOCAINE 1% W/EPI 1:100,000 MDV 20 ML VIAL ONE (23:07)
[2019-10-25] MEDS ORDERED: LIDOCAINE 1% W/EPI 1:100,000 MDV 50 ML VIAL ONE (23:07)
--- NOTE | 2019-10-25 23:26 | EDPHYS ---
Physician Documentation [facility] Name: Ninfa Olsen Age: 79 yrs Sex: Female : 1940 Arrival Date: 10/25/2019 Time: 21:59 Bed 5 Private MD: ED Physician Mg Elizalde HPI: 10/25 23:19 This 79 yrs old Female presents to ER via Wheelchair with complaints of aj Laceration To Leg. 23:19 The patient has a laceration related to: closing door on leg , 3 days ago. The aj laceration(s) is(are) located on the right cárdenas. Associated signs and symptoms: The patient has no apparent associated signs or symptoms. The patient has not experienced similar symptoms in the past. Historical: - Allergies: 22:13 Benicar; ca1 22:13 PENICILLINS; ca1 - PMHx: 22:13 COPD; High Cholesterol; Hypertension; ca1 - PSHx: 22:13 None; ca1 - Immunization history:: Adult Immunizations up to date, Last tetanus immunization: < 5 years ago Pneumococcal vaccine is up to date, Flu vaccine is up to date. - Coronavirus screen:: The patient has NOT traveled to [place] in the past 14 days. The patient has NOT had contact with known/suspected case of Coronavirus?. - Social history:: Smoking status: Patient/guardian denies using tobacco, the patient reports quitting approximately 21 years ago. - Family history:: not pertinent. - Ebola Screening: : Patient negative for fever greater than or equal to 101.5 degrees Fahrenheit, and additional compatible Ebola Virus Disease symptoms Patient denies exposure to infectious person Patient denies travel to an Ebola-affected area in the 21 days before illness onset No symptoms or risks identified at this time. ROS: 23:19 Constitutional: Negative for fever, chills, and weight loss, Eyes: Negative for injury, aj pain, redness, and discharge, ENT: Negative for injury, pain, and discharge, Neck: Negative for injury, pain, and swelling, Cardiovascular: Negative for chest pain, palpitations, and edema, Respiratory: Negative for shortness of breath, cough, wheezing, and pleuritic chest pain, Abdomen/GI: Negative for abdominal pain, nausea, vomiting, diarrhea, and constipation, Back: Negative for injury and pain, : Negative for injury, bleeding, discharge, and swelling, Skin: Negative for injury, rash, and discoloration, Neuro: Negative for headache, weakness, numbness, tingling, and seizure, Psych: Negative for depression, anxiety, suicide ideation, homicidal ideation, and hallucinations, Allergy/Immunology: Negative for hives, rash, and allergies, Endocrine: Negative for neck swelling, polydipsia, polyuria, polyphagia, and marked weight changes. 23:19 MS/extremity: Positive for laceration, pain, swelling, tenderness, of the right cárdenas. Exam: 23:19 Constitutional: This is a well developed, well nourished patient who is awake, alert, aj and in no acute distress. Head/Face: Normocephalic, atraumatic. Eyes: Pupils equal round and reactive to light, extra-ocular motions intact. Lids and lashes normal. Conjunctiva and sclera are non-icteric and not injected. Cornea within normal limits. Periorbital areas with no swelling, redness, or edema. ENT: Nares patent. No nasal discharge, no septal abnormalities noted. Tympanic membranes are normal and external auditory canals are clear. Oropharynx with no redness, swelling, or masses, exudates, or evidence of obstruction, uvula midline. Mucous membranes moist. Neck: Trachea midline, no thyromegaly or masses palpated, and no cervical lymphadenopathy. Supple, full range of motion without nuchal rigidity, or vertebral point tenderness. No Meningismus. Chest/axilla: Normal chest wall appearance and motion. Nontender with no deformity. No lesions are appreciated. Cardiovascular: Regular rate and rhythm with a normal S1 and S2. No gallops, murmurs, or rubs. Normal PMI, no JVD. No pulse deficits. Respiratory: Lungs have equal breath sounds bilaterally, clear to auscultation and percussion. No rales, rhonchi or wheezes noted. No increased work of breathing, no retractions or nasal flaring. Abdomen/GI: Soft, non-tender, with normal bowel sounds. No distension or tympany. No guarding or rebound. No evidence of tenderness throughout. Back: No spinal tenderness. No costovertebral tenderness. Full range of motion. Female : Normal external genitalia. Skin: Warm, dry with normal turgor. Normal color with no rashes, no lesions, and no evidence of cellulitis. Neuro: Awake and alert, GCS 15, oriented to person, place, time, and situation. Cranial nerves II-XII grossly intact. Motor strength 5/5 in all extremities. Sensory grossly intact. Cerebellar exam normal. Normal gait. Psych: Awake, alert, with orientation to person, place and time. Behavior, mood, and affect are within normal limits. 23:19 Musculoskeletal/extremity: Pulses: noted to be 4+ in the bilateral radial, brachial, femoral, popliteal, posterior tibial and and dorsalis pedis arteries., Sensation intact. Compartment Syndrome exam of affected extremity: is normal. Vital Signs: 22:13 BP 176 / 88; Pulse 65; Resp 17 S; Temp 97.2(TE); Pulse Ox 93% on R/A; Weight 51.26 kg ca1 (R); Height 5 ft. (152.40 cm) (R); 22:13 Body Mass Index 22.07 (51.26 kg, 152.40 cm) ca1 Laceration: 23:19 Wound Repair of 4cm ( 1.6in ) subcutaneous laceration to right cárdenas. Irregularly aj shaped.. Skin/tissue flap noted.. Minimal bleeding noted.. Distal neuro/vascular/tendon intact. Anesthesia: Local anesthetic administered with 10 mls of 1% lidocaine w/ Epi. Wound prep: Moderate cleansing by me, Copious irrigation. Skin closed with 3 3-0 Prolene using vertical mattress sutures and sterile technique. Dressed with pressure dressing, non-adherent dressing. Patient tolerated well. MDM: 22:36 Patient medically screened. [facility] 23:24 Data reviewed: vital signs, nurses notes. [facility] 10/25 23:19 Order name: Prolene, Sutures; Complete Time: 23:26 [facility] 10/25 23:19 Order name: Dressing - Wound; Complete Time: 23:26 [facility] 10/25 23:19 Order name: Gloves, Sterile; Complete Time: 23:26 [facility] 10/25 23:19 Order name: Setup Suture Tray; Complete Time: 23:26 [facility] Administered Medications: 23:17 Drug: Lidocaine-Epinephrine -1%: (1:100,000) 1 amp {Note: By provider.} Volume: 20 ml; ea Route: Infiltration; 23:40 Drug: Bactrim (160 mg-800 mg (DS) 1 tablet Route: PO; ea 23:40 Follow up: Response: Medication administered at discharge. ea Disposition: 10/25/19 23:25 Discharged to Home. Impression: Laceration without foreign body, right foot, Laceration without foreign body, right lower leg. - Condition is Stable. - Discharge Instructions: Laceration Care, Adult, Laceration Care, Adult, [id number]. - Prescriptions for Bactroban 2 % Topical Ointment - Apply to affected area 1 application by TOPICAL route every 12 hours; 30 gram. Bactrim DS 800- 160 mg Oral Tablet - take 1 tablet by ORAL route every 12 hours for 7 days; 14 tablet. - Medication Reconciliation Form, Thank You Letter, Antibiotic Education, Prescription Opioid Use form. - Follow up: Private Physician; When: 2 - 3 days; Reason: Recheck today's complaints, Continuance of care, Re-evaluation by your physician. - Problem is new. - Symptoms have improved. Signatures: Mg Elizalde MD MD cha Antunez, Elena, RN RN ea Acob, Cheryl, RN RN ca1 Corrections: (The following items were deleted from the chart) 10/26 00:07 10/25 23:25 10/25/2019 23:25 Discharged to Home. Impression: Laceration without foreign ea body, right foot; Laceration without foreign body, right lower leg. Condition is Stable. Forms are Medication Reconciliation Form, Thank You Letter, Antibiotic Education, Prescription Opioid Use. Follow up: Private Physician; When: 2 - 3 days; Reason: Recheck today's complaints, Continuance of care, Re-evaluation by your physician. Problem is new. Symptoms have improved. aj
--- NOTE | 2019-10-25 23:26 | ER ---
Nurse's Notes [facility] Name: Ninfa Olsen Age: 79 yrs Sex: Female : 1940 Arrival Date: 10/25/2019 Time: 21:59 Bed 5 Private MD: Diagnosis: Laceration without foreign body, right foot;Laceration without foreign body, right lower leg Presentation: 10/25 22:08 Presenting complaint: Patient states: Lac on R leg happened Thursday. Was cleaning the ca1 wound today when it spewed blood. I might have it an artery which also happened before. Transition of care: patient was not received from another setting of care. Complicating Factors: There are no complicating factors for this patient. Onset of symptoms was October 25, 2019. Risk Assessment: Do you want to hurt yourself or someone else? Patient reports no desire to harm self or others. Initial Sepsis Screen: Does the patient meet any 2 criteria? No. Patient's initial sepsis screen is negative. Does the patient have a suspected source of infection? No. Patient's initial sepsis screen is negative. Care prior to arrival: Bleeding of injury controlled. 22:08 Method Of Arrival: Wheelchair ca1 22:08 Acuity: RILEY 4 ca1 Triage Assessment: 22:34 General: Appears uncomfortable, Behavior is calm, cooperative, appropriate for age. ea Pain: Denies pain. Neuro: Level of Consciousness is awake, alert, obeys commands, Oriented to person, place, time, situation. Respiratory: Airway is patent Respiratory effort is even, unlabored, Respiratory pattern is regular, symmetrical. Derm: Skin is pink, warm \T\ dry. Injury Description: Laceration sustained to right cárdenas is 2.6 to 7.5 cm long, was sustained 2 days ago. is bleeding moderately. Historical: - Allergies: 22:13 Benicar; ca1 22:13 PENICILLINS; ca1 - PMHx: 22:13 COPD; High Cholesterol; Hypertension; ca1 - PSHx: 22:13 None; ca1 - Immunization history:: Adult Immunizations up to date, Last tetanus immunization: < 5 years ago Pneumococcal vaccine is up to date, Flu vaccine is up to date. - Coronavirus screen:: The patient has NOT traveled to [place] in the past 14 days. The patient has NOT had contact with known/suspected case of Coronavirus?. - Social history:: Smoking status: Patient/guardian denies using tobacco, the patient reports quitting approximately 21 years ago. - Family history:: not pertinent. - Ebola Screening: : Patient negative for fever greater than or equal to 101.5 degrees Fahrenheit, and additional compatible Ebola Virus Disease symptoms Patient denies exposure to infectious person Patient denies travel to an Ebola-affected area in the 21 days before illness onset No symptoms or risks identified at this time. Screenin:33 Abuse screen: Denies threats or abuse. Nutritional screening: No deficits noted. ea Tuberculosis screening: No symptoms or risk factors identified. Fall Risk None identified. Assessment: 22:34 Reassessment: see triage assessment. ea 23:45 Reassessment: Patient and/or family updated on plan of care and expected duration. Pain ea level reassessed. Patient is alert, oriented x 3, equal unlabored respirations, skin warm/dry/pink. Discharge instruction given to patient, verbalized the understanding of instruction. Pt left ED ambulatory accompanied by family. Pt tolerating well. Vital Signs: 22:13 BP 176 / 88; Pulse 65; Resp 17 S; Temp 97.2(TE); Pulse Ox 93% on R/A; Weight 51.26 kg ca1 (R); Height 5 ft. (152.40 cm) (R); 22:13 Body Mass Index 22.07 (51.26 kg, 152.40 cm) ca1 ED Course: 21:59 Patient arrived in ED. ag3 22:12 Triage completed. ca1 22:13 Arm band placed on right wrist. ca1 22:22 Carolina sHu, RN is Primary Nurse. ea 22:34 Patient has correct armband on for positive identification. Bed in low position. Call ea light in reach. Side rails up X2. 22:36 Mg Elizalde MD is Attending Physician. aj 23:27 Assist provider with laceration repair on right cárdenas that was between 2.6 to 7.5 cm ea using sutures. Set up tray. Performed by Mg Elizalde MD Dressed with 4X4s, Kerlix, Patient tolerated well. 23:45 Patient did not have IV access during this emergency room visit. ea Administered Medications: 23:17 Drug: Lidocaine-Epinephrine -1%: (1:100,000) 1 amp {Note: By provider.} Volume: 20 ml; ea Route: Infiltration; 23:40 Drug: Bactrim (160 mg-800 mg (DS) 1 tablet Route: PO; ea 23:40 Follow up: Response: Medication administered at discharge. jany Outcome: 23:25 Discharge ordered by . aj 23:45 Discharged to home ambulatory, with significant other. jany 23:45 Condition: stable 23:45 Discharge instructions given to patient, Instructed on discharge instructions, follow up and referral plans. medication usage, Demonstrated understanding of instructions, follow-up care, medications, Prescriptions given X 3. 10/26 00:07 Patient left the ED. ea Signatures: Mg Elizalde MD MD cha Antunez, Elena, RN RN Ashlyn Galvan ag3 Lara Guallpa RN RN ca1
[2019-10-25] MEDS ORDERED: SMZ./TMP. 800/160 MG TABLET ONE (23:36)
== END 2019-10-26 00:07 | disposition home or self-care (01) ==
LOC: ER 21:58
PROC: 0JQN0ZZ Repair Right Lower Leg Subcutaneous Tissue and Fascia, Open Approach (ICD-10-PCS; principal; 2019-10-25)
DX: S81.811A Laceration without foreign body, right lower leg, initial encounter (principal); S91.311A Laceration without foreign body, right foot, initial encounter; W23.0XXA Caught, crushed, jammed, or pinched between moving objects, initial encounter; Y93.9 Activity, unspecified; Y92.9 Unspecified place or not applicable
CPT/HCPCS: 99283

== ENCOUNTER 2019-11-07 22:50 | Emergency (ER) | payer OTHER ==
--- OUTSIDE RECORDS SUMMARY | 2019-11-07 22:52 | XMS REPORT ---
:1940 [facility] Address [address] [place] [address] Care Team Providers Name Role Phone Unavailable Unavailable Unavailable Payers Payer Name Policy Type Policy Number Effective Date Expiration Date Problems This patient has no known problems. Allergies, Adverse Reactions, Alerts Allergy Name Allergy Status Severity Reaction(s) Onset Inactive Treating Comments Type Date Date Clinician Penicillins DA Active [place] 2018-09 00:00:0 0 adhesive DA Active [place] 2018-09 00:00:0 0 olmesartan DA Active [place] 2018-09 00:00:0 0 Penicillins DA Active [place] 2015-02 00:00:0 0 olmesartan DA Active [place] 2015-02 00:00:0 0 Medications This patient has no known medications. Encounters Start End Encounter Admission Attending Care Care Encounter Date/Time Date/Time Type Type Clinicians Facility Department ID 2019-04-07 Inpatient U [facility] [id number] 07:46:00 2019-04-06 Inpatient U [facility] [id number] 15:01:03 2019-03-14 2019-03-14 Outpatient [facility] [id number] 07:06:00 07:06:00
[2019-11-08] MEDS ORDERED: SILVER NITRATE 1 APPL TOP ONE (01:12)
[2019-11-08] MEDS ORDERED: cloNIDine HCL 0.1 MG TAB ONE (01:39)
--- NOTE | 2019-11-08 01:52 | EDPHYS ---
Physician Documentation [facility] Name: Ninfa Olsen Age: 79 yrs Sex: Female : 1940 Arrival Date: 11/07/2019 Time: 22:52 Bed 6 Private MD: ED Physician Tyrese Moscoso HPI: 11/06 23:38 This 79 yrs old Female presents to ER via Ambulatory with complaints of Post jmm Surgical Bleeding. 23:38 The affected area is on the pinna of right ear. This is an 79 year old female with a jmm history of COPD that presents to the ED with complaints of bleeding to the right ear. Patient had a skin biopsy performed earlier today. Bleeding began this evening and increased just prior to arrival. . Historical: - Allergies: 23:13 Benicar; bb 23:13 PENICILLINS; bb - Home Meds: 23:13 allopurinol 100 mg Oral tab 1 tab once daily [Active]; atorvastatin 20 mg Oral tab 1 rr5 tab once daily [Active]; gabapentin Oral [Active]; aspirin 81 mg Oral TbEC 1 tab once daily [Active]; carbidopa-levodopa 25/200 mg 1 tab at 1530 and 1 tab at bedtime Oral tab [Active]; clonidine HCl 0.1 mg Oral tab 3 tabs [Active]; hydralazine 10 mg Oral tab 1 tab 2 times per day [Active]; nisoldipine 8.5 mg Oral Tb24 1 tab once daily [Active]; O2 at night 2L NC [Active]; Ranitidine Oral once daily [Active]; RESTASIS [Active]; tramadol HCL 50 mg PRN [Active]; trelegy INH [Active]; - PMHx: 23:13 COPD; High Cholesterol; Hypertension; bb - PSHx: 23:13 foot shoulder; shoulder surgery; Knee surgery; Tonsillectomy; Appendectomy; bb Hysterectomy; hip surgery; - Immunization history:: Adult Immunizations up to date. - Social history:: Smoking status: Patient/guardian denies using tobacco, the patient reports quitting approximately 20 years ago. ROS: 23:38 Constitutional: Negative for fever, chills, and weight loss, Cardiovascular: Negative jmm for chest pain, palpitations, and edema, Respiratory: Negative for shortness of breath, cough, wheezing, and pleuritic chest pain, Abdomen/GI: Negative for abdominal pain, nausea, vomiting, diarrhea, and constipation. 23:38 Skin: Positive for bleeding. 23:38 All other systems are negative. Exam: 23:38 Constitutional: This is a well developed, well nourished patient who is awake, alert, jmm and in no acute distress. Head/Face: atraumatic. Eyes: EOMI, no conjunctival erythema appreciated 23:38 Neck: Trachea midline, Supple Chest/axilla: Normal chest wall appearance and motion. Cardiovascular: Regular rate and rhythm. No edema appreciated Respiratory: Normal respirations, no respiratory distress appreciated Abdomen/GI: Non distended, soft Back: Normal ROM 23:38 ENT: mild bleeding noted to the pinna of the right ear. 23:38 Skin: bleeding wound noted to the pinna of the right ear. 23:38 Neuro: Orientation: is normal, Mentation: is normal, Memory: is normal. 23:38 Psych: Behavior/mood is pleasant, cooperative. Vital Signs: 23:06 BP 163 / 83; Pulse 66; Resp 18 S; Temp 98(O); Pulse Ox 93% on R/A; Weight 50.8 kg (R); bb Height 5 ft. 0 in. (152.40 cm) (R); Pain 10/10; 0303 00:30 BP 174 / 89; Pulse 65; Resp 16; Pulse Ox 90% on R/A; rr5 01:30 BP 184 / 77; Pulse 85; Resp 19; Pulse Ox 91% ; rr5 02:00 BP 182 / 79; Pulse 80; Resp 17; Pulse Ox 99% on R/A; rr5 0302 23:06 Body Mass Index 21.87 (50.80 kg, 152.40 cm) Procedures: 01:49 Silver nitrite applied to the wound with surgicele and pressure dressing. Bleeding has melia resolved. . MDM: 11/06 23:38 Patient medically screened. melia 11/07 01:49 Data reviewed: vital signs, nurses notes. Counseling: I had a detailed discussion with melia the patient and/or guardian regarding: the historical points, exam findings, and any diagnostic results supporting the discharge/admit diagnosis, the need for outpatient follow up, to return to the emergency department if symptoms worsen or persist or if there are any questions or concerns that arise at home. ED course: Patient advised to follow up with pcp for reevaluation of the wound. Patient is otherwise given strict return precautions. Patient understood and agrees with the plan of care. . Administered Medications: 01:05 Drug: Silver Nitrate Applicators 1 application {Note: right ear pinna area rendered by rr5 rosalinda GONSALES.} Route: Topical; Site: affected area; 02:00 Follow up: Response: No adverse reaction; Marked relief of symptoms; Other; negative rr5 bleeding 01:37 Drug: cloNIDine 0.3 mg Route: PO; rr5 02:00 Follow up: Response: No adverse reaction rr5 Disposition: 03:21 Co-signature as Attending Physician, Tyrese Moscoso MD. rn Disposition: 11/08/19 01:51 Discharged to Home. Impression: Bleeding Wound. - Condition is Stable. - Medication Reconciliation Form, Thank You Letter, Antibiotic Education, Prescription Opioid Use form. - Follow up: Private Physician; When: Tomorrow; Reason: Recheck today's complaints, Continuance of care, Re-evaluation by your physician. Signatures: Rosalinda Hardwick PA PA jmm Ballard, Brenda, RN RN Tyrese Yao MD MD rn Roque, Raymond, RN RN rr5 Corrections: (The following items were deleted from the chart) 02:04 01:51 11/08/2019 01:51 Discharged to Home. Impression: Bleeding Wound. Condition is rr5 Stable. Forms are Medication Reconciliation Form, Thank You Letter, Antibiotic Education, Prescription Opioid Use. Follow up: Private Physician; When: Tomorrow; Reason: Recheck today's complaints, Continuance of care, Re-evaluation by your physician. melia 02:39 11/06 23:13 Home Meds: Unable to obtain; prince rr5
--- NOTE | 2019-11-08 01:52 | ER ---
Nurse's Notes [facility] Name: Ninfa Olsen Age: 79 yrs Sex: Female : 1940 Arrival Date: 11/07/2019 Time: 22:52 Bed 6 Private MD: Diagnosis: Bleeding Wound Presentation: 11/06 23:06 Chief complaint: Patient states: she had biopsy to right ear done today and it started bb bleeding approx 2144 and they are unable to get the bleeding to stop. Coronavirus screen: The patient has NOT traveled to [place] in the past 14 days. Proceed with normal triage procedures. Ebola Screen: No symptoms or risks identified at this time. Initial Sepsis Screen: Does the patient meet any 2 criteria? No. Patient's initial sepsis screen is negative. Does the patient have a suspected source of infection? No. Patient's initial sepsis screen is negative. Risk Assessment: Do you want to hurt yourself or someone else? Patient reports no desire to harm self or others. Onset of symptoms was November 07, 2019. 23:06 Method Of Arrival: Ambulatory bb 23:06 Acuity: RILEY 4 bb Historical: - Allergies: 23:13 Benicar; bb 23:13 PENICILLINS; bb - Home Meds: 23:13 allopurinol 100 mg Oral tab 1 tab once daily [Active]; atorvastatin 20 mg Oral tab 1 rr5 tab once daily [Active]; gabapentin Oral [Active]; aspirin 81 mg Oral TbEC 1 tab once daily [Active]; carbidopa-levodopa 25/200 mg 1 tab at 1530 and 1 tab at bedtime Oral tab [Active]; clonidine HCl 0.1 mg Oral tab 3 tabs [Active]; hydralazine 10 mg Oral tab 1 tab 2 times per day [Active]; nisoldipine 8.5 mg Oral Tb24 1 tab once daily [Active]; O2 at night 2L NC [Active]; Ranitidine Oral once daily [Active]; RESTASIS [Active]; tramadol HCL 50 mg PRN [Active]; trelegy INH [Active]; - PMHx: 23:13 COPD; High Cholesterol; Hypertension; bb - PSHx: 23:13 foot shoulder; shoulder surgery; Knee surgery; Tonsillectomy; Appendectomy; bb Hysterectomy; hip surgery; - Immunization history:: Adult Immunizations up to date. - Social history:: Smoking status: Patient/guardian denies using tobacco, the patient reports quitting approximately 20 years ago. Screenin:20 Abuse screen: Denies threats or abuse. Denies injuries from another. Nutritional rr5 screening: No deficits noted. Tuberculosis screening: No symptoms or risk factors identified. Fall Risk None identified. Total Segundo Fall Scale indicates No Risk (0-24 pts). Assessment: 23:20 General: Appears in no apparent distress. comfortable, Behavior is calm, cooperative, rr5 appropriate for age. 23:20 Pain: Complains of pain in pinna of right ear Pain does not radiate. Pain currently is rr5 10 out of 10 on a pain scale. Quality of pain is described as aching, Pain began gradually, Is intermittent. Neuro: Level of Consciousness is awake, alert, obeys commands, Oriented to person, place, time, situation, Appropriate for age. Cardiovascular: Capillary refill < 3 seconds Patient's skin is warm and dry. Respiratory: Airway is patent Respiratory effort is even, unlabored, Respiratory pattern is regular, symmetrical. GI: No signs and/or symptoms were reported involving the gastrointestinal system. : No signs and/or symptoms were reported regarding the genitourinary system. EENT: right ear pinna area bleeding noted.. Reports bleeding on right ear. Derm: Wound noted pinna of right ear Wound is pos biopsy wound. Musculoskeletal: Circulation, motion, and sensation intact. Capillary refill < 3 seconds. 11/07 00:23 Reassessment: Patient appears in no apparent distress at this time. No changes from rr5 previously documented assessment. Patient is alert, oriented x 3, equal unlabored respirations, skin warm/dry/pink. 01:10 Reassessment: right ear pinna area still bleeding. ED provider put silver nitrate rr5 medication on the right ear pinna. 01:30 Reassessment: ED provider informed for the BP result with order made and carried out. rr5 patient taking BP medication at night time. 02:00 Reassessment: Patient appears in no apparent distress at this time. Patient is alert, rr5 oriented x 3, equal unlabored respirations, skin warm/dry/pink. dressing dry and intact. discharge instruction given and explained without complaints made. Patient states symptoms have improved. Vital Signs: 11/06 23:06 BP 163 / 83; Pulse 66; Resp 18 S; Temp 98(O); Pulse Ox 93% on R/A; Weight 50.8 kg (R); bb Height 5 ft. 0 in. (152.40 cm) (R); Pain 10; 11/07 00:30 BP 174 / 89; Pulse 65; Resp 16; Pulse Ox 90% on R/A; rr5 01:30 BP 184 / 77; Pulse 85; Resp 19; Pulse Ox 91% ; rr5 02:00 BP 182 / 79; Pulse 80; Resp 17; Pulse Ox 99% on R/A; rr5 11/06 23:06 Body Mass Index 21.87 (50.80 kg, 152.40 cm) bb ED Course: 11/06 22:52 Patient arrived in ED. jg7 23:10 Triage completed. bb 23:13 Arm band placed on Patient placed in an exam room, on a stretcher, on pulse oximetry. bb Family accompanied patient. 23:20 Patient has correct armband on for positive identification. Placed in gown. Bed in low rr5 position. Call light in reach. 23:22 Humphrey Lockhart, RN is Primary Nurse. rr5 23:22 Rosalinda Hardwick PA is PHCP. [facility] 23:22 Tyrese Moscoso MD is Attending Physician. [facility] 23:45 Wound care: to post biopsy wound located on right ear was surgicel dressing and rr5 pressure dressing applied. Patient tolerated well. rendered by rosalinda GONSALES. 11/07 01:10 Wound care: to post biopsy right ear pinna located on right ear was silver nitrate rr5 rendered by rosalinda GONSALES. pressure dressing applied. 02:00 No provider procedures requiring assistance completed. Patient did not have IV access rr5 during this emergency room visit. Administered Medications: 01:05 Drug: Silver Nitrate Applicators 1 application {Note: right ear pinna area rendered by rr5 rosalinda GONSALES.} Route: Topical; Site: affected area; 02:00 Follow up: Response: No adverse reaction; Marked relief of symptoms; Other; negative rr5 bleeding 01:37 Drug: cloNIDine 0.3 mg Route: PO; rr5 02:00 Follow up: Response: No adverse reaction rr5 Intake: Outcome: 01:51 Discharge ordered by . [facility] 02:00 Discharged to home ambulatory, with family. rr5 02:00 Condition: stable 02:00 Discharge instructions given to patient, Instructed on discharge instructions, follow up and referral plans. Demonstrated understanding of instructions, follow-up care. 02:04 Patient left the ED. rr5 Signatures: Rosalinda Hardwick PA PA jmm Ballard, Brenda RN RN bb Humphrey Lockhart RN RN rr5 Shilpi Merchant jg7 Corrections: (The following items were deleted from the chart) 02:37 03/ 23:45 Wound care: to post biopsy wound located on right ear was surgicel dressing rr5 and pressure dressing applied. Patient tolerated well. rr5 0303 02:39 03/ 23:13 Home Meds: Unable to obtain; prince rr5
[2019-11-08 04:15] VITALS: TEMP 98
[2019-11-08 04:18] VITALS: BP 184/77; O2SAT 91
== END 2019-11-08 02:04 | disposition home or self-care (01) ==
LOC: ER 22:50
DX: H95.41 Postprocedural hemorrhage of ear and mastoid process following a procedure on the ear and mastoid process (principal); I10 Essential (primary) hypertension; E78.00 Pure hypercholesterolemia, unspecified; J44.9 Chronic obstructive pulmonary disease, unspecified; Z79.82 Long term (current) use of aspirin; Z88.0 Allergy status to penicillin; Z88.8 Allergy status to other drugs, medicaments and biological substances
CPT/HCPCS: 99284

== ENCOUNTER 2020-01-23 21:35 | Observation (INO) | payer OTHER ==
--- OUTSIDE RECORDS SUMMARY | 2020-01-23 21:38 | XMS REPORT | Clinical Summary ---
:1940 Author Organization [facility] Address [address] [place] [address] Care Team Providers Name Role Phone Priti Martinez MD Primary Care Provider Allergies Active Allergy Reactions Severity Noted Date Comments Olmesartan Penicillins Medications Medication Sig Dispensed Refills Start Date End Date Status allopurinol Take 100 mg by 3 03/20/2017 Ac tive (ZYLOPRIM) 100 MG mouth once tablet daily. atorvastatin TAKE 1 TABLET 3 03/18/2017 Ac tive (LIPITOR) 20 MG BY MOUTH EVERY tablet DAY AFTER EVENING MEAL azithromycin Take 250 mg by 2 03/18/2017 A ctive (ZITHROMAX) 250 MG mouth once tablet daily. carbidopa-levodopa TAKE 1 TABLET 3 04/03/2017 Active (SINEMET) 25-100 BY OR[address] ROUTE mg per tablet 4 TIMES EVERY DAY FOR RESTLESS LEG SYNDROME clonIDINE TAKE 2 TABLETS 3 04/15/2017 Acti ve (CATAPRES) 0.1 MG BY MOUTH IN tablet THE MORNING AND EVENING AND 1 TABLET AT NOON gabapentin Take 600 mg by 0 02/11/2017 Act brenda (NEURONTIN) 600 mg mouth 4 (four) tablet times a day. GLUCOSAM SUL glucosamine-ch 0 Ac tive NA/CHONDR ondroitn (GLUCOSAMINE-CHOND sulf.Na ROITN SULF.NA ORAL) flaxseed 1,000 mg flaxseed 0 Ac tive capsule aspirin (ECOTRIN) Take 81 mg by 0 Active 81 MG enteric mouth daily. coated tablet traMADol (ULTRAM) TAKE 2 0 02/07/2019 A ctive 50 mg tablet TABLET(S) EVERY 12 HOURS BY ORAL ROUTE NEEDED FOR 30 DAYS. TRELEGY ELLIPTA INHALE 1 PUFF 3 12/04/2018 Active 100-62.5-25 mcg BY MOUTH EVERY blister with DAY device ranitidine Take 150 mg by 3 03/03/2019 Act brenda (ZANTAC) 150 MG mouth 2 (two) tablet times a day. hydrALAZINE Take 20 mg by 3 01/17/2019 Act brenda (APRESOLINE) 10 MG mouth 2 (two) tablet times a day. calcium carbonate Take 1 tablet 0 Active (CALCIUM 600) 600 by mouth. mg calcium (1,500 mg) tablet cycloSPORINE Apply 1 drop 0 Acti ve (RESTASIS) 0.05 % to eye. ophthalmic emulsion cranberry Take by mouth. 0 Activ e xt/multivitamin (CRANBERRY EXTRACT-MULTIVITAM IN ORAL) acetaminophen Take by mouth. 0 A ctive (TYLENOL ARTHRITIS ORAL) losartan (COZAAR) TAKE 1 TABLET 90 tablet 0 12/01/2019 Active 100 MG tablet BY MOUTH EVERY DAY BROVANA 15 mcg/2 USE 1 VIAL IN 2 04/03/2017 03/08/20 Discontinued mL solution for NEBULIZER 19 nebulization EVERY 12 HOURS budesonide USE 1 VIAL IN 2 03/13/2017 03/08/20 Disc ontinued (PULMICORT) 0.5 NEBULIZER 19 mg/2 mL nebulizer EVERY 12 HOURS solution amLODIPine Take 1 tablet 180 tablet 3 04/21/2017 03/08/20 Dis continued (NORVASC) 5 mg (5 mg total) 19 tablet by mouth 2 (two) times a day. losartan (COZAAR) TAKE 1 TABLET 30 tablet 0 01/17/2019 0 Discontinued 100 MG tablet BY MOUTH EVERY 19 ( Reorder) DAY losartan (COZAAR) TAKE 1 TABLET 30 tablet 0 02/08/2019 0 Discontinued 100 MG tablet BY MOUTH EVERY 19 ( Reorder) DAY losartan (COZAAR) TAKE 1 TABLET 90 tablet 0 03/14/2019 0 Discontinued 100 MG tablet BY MOUTH EVERY 19 ( Reorder) DAY losartan (COZAAR) TAKE 1 TABLET 90 tablet 0 06/07/2019 0 Discontinued 100 MG tablet BY MOUTH EVERY 19 DAY losartan (COZAAR) TAKE 1 TABLET 90 tablet 0 09/05/2019 0 Discontinued 100 MG tablet BY MOUTH EVERY 20 DAY Active Problems Problem Noted Date HLD (hyperlipidemia) 04/21/2017 Essential hypertension 04/21/2017 Carotid artery disease 04/21/2017 Aortic valve stenosis 04/21/2017 Abnormal EKG 04/21/2017 Dizziness 04/21/2017 Bilateral carotid bruits 04/21/2017 Chest pain 04/21/2017 AVD (aortic valve disease) 04/21/2017 Encounters Date Type Specialty Care Team Description 12/01/2019 Refill Cardiology Kalpana Canela MD Med Refi ll 11/15/2019 Transcribe Orders Access [facility] [place] Pulmonar y nodule (Primary MD Av Dx) 09/05/2019 Refill Cardiology Kalpana Canela MD Med Refi ll 06/07/2019 Refill Cardiology Kalpana Canela MD Med Refi ll 03/12/2019 Refill Cardiology Kalpana Canela MD Med Refi ll 03/08/2019 Office Visit Cardiology Kalpana Canela MD [facility] hypertension (Primary Dx); AVD (aortic med ve disease); Pre-op exam 02/08/2019 Refill Cardiology Kalpana Canela MD Med Refi ll after 01/22/2019 Social History Tobacco Use Types Packs/Day Years Used Date Never Assessed Sex Assigned at Date Recorded Not on file Job Start Date Occupation Industry Not on file Not on file Not on file Travel History Travel Start Travel End No recent travel history available. Last Filed Vital Signs Vital Sign Reading Time Taken Comments Blood Pressure - - Pulse - - Temperature - - Respiratory Rate - - Oxygen Saturation - - Inhaled Oxygen Concentration - - Weight 51.7 kg (114 lb) 03/08/2019 10:47 AM CDT Height 154.9 cm (5' 1") 03/08/2019 10:47 AM CDT Body Mass Index 21.54 03/08/2019 10:47 AM CDT Plan of Treatment Date Type Specialty Care Team Description 03/06/2020 Office Visit Cardiology Kalpana Canela MD [address] [place], [place] [address] [phone] Health Maintenance Due Date Last Done Comments SHINGLES VACCINES (#1) 1989 65+ PNEUMOCOCCAL VACCINE (1 of 2 - PCV13) 2004 INFLUENZA VACCINE 04/07/2020 Procedures Procedure Name Priority Date/Time Associated Diagnosis Comme nts TTE COMPLETE, WO STAT 03/09/2019 5:54 PM AVD (aortic valve Results for this CONTRAST, W DOPPLER CDT disease) procedure are in (17337) Pre-op exam the results section. ECG 12-LEAD Routine 03/08/2019 10:00 AM Essential Results for this CDT hypertension procedure are in AVD (aortic valve the result s disease) section. Pre-op exam after 01/22/2019 Results Echocardiogram complete w contrast and 3D if needed (03/09/2019 5:54 PM CDT) Specimen Narrative Performed At [facility] Echo cardiography Report Pat.Name: NINFA DIAZ Pat.ID: [id number]Date: 03/09/2019 Refer.MD: KALPANA CANELA MD Exam Time: 4:07:00 PM Study Type:R outine Echo Height: 61in Weight: 114lb BSA: 1.49 m2 Ag e: 1940,78Y Sex: FEMALE BP: 190/88 HR: 49 bpm Sonogrphr: GAEL Connors FASE Pat. Stat.:Outpatient Room: [place] Study Status:Final Echo Event ID:[id number] Order ID: [id number] Reason for Study:Aortic Stenosis History / Clinical:Disorder of carotid a rtery, Hypertension Procedures:2D Echo, Colorflow Doppler Race: C SUMMARY: LV EF is hyperdynamic. Estimated EF is > 70%. Diastolic dysfunction Grade II (Moderat e): Impaired relaxation with elevated LV filling pressures. LA volume is moderately enlarged. Moderate aortic valve stenosis. Estimat ed mean aortic valve gradient 19 mmHg with a valve area of 1 cm2. Dime nsionless index 0.43. Indexed valve area 0.67 sq cm/m2. Interval incre ase in peak velocities from last study in 2016. Estimated PA systolic pressure is 45 mm Hg, assuming a mean RAP of 5 mmHg. FINDINGS: LV: LV size is normal. Concentr ic left ventricular remodeling. LV EF is hyperdynamic. Overall wall m otion is hyperdynamic. Estimated EF is >70%. RV: RV size is normal. RV systo lic function is normal. LA: LA volume is moderately enl arged. RA: RA size is normal. AO: Aortic root diameter is upp er limits of normal in size. Calcifications in ascen ding aorta. RALPH: No pericardial effusion. AV: Mild to moderate thickening and calcification of AV leaflets. Moderate aortic valve steno sis. Estimated mean aortic valve gradient 19 mmHg with a valve area of 1 cm2. Dimensionless index 0.43. Indexed med ve area 0.67 sq cm/m2 MV: Focal calcification of mitr al leaflets. A trace of mitral regurgitation. PV: No structural PV abnormalit ies noted. TV: No structural TV abnormalit ies noted. Rivera: Diastolic dysfunction Grade II (Moderate): Impaired relaxation with elevate d LV filling pressures. Other: Estimated PA systolic pressu re is 45 mmHg, assuming a mean RAP of 5 mmHg. MEASUREMENTS: 2D Parasternal [place] LVOT 1.7 cm LA Ds 3.7 cm LVIDd 4.1 cm Index 2.7 cm/m Ao An 2.2 cm LVIDs 2.4 cm Ao Rtd 3.3 cm Index 2.2 cm/m LV%fs 41.4 % LV Mass 128.9 g (87-129) IVSd 1 cm LVM I ndex 86.5 g/m2 LVPWd 1 cm RWT 0.5 LA Sng Plane LA Area 21.4 cm2 (8.8-23.4) LA Vol 66.8 ml Index 44.9 ml/m LA LngAx 5.7 cm DOPPLER AV For Flow/BRIANNA AV pkVel 305.2 cm/s (100-170) AV AC/ET 0.2 AV mnVel 201.4 cm/s AV TVI 73.3 cm AV pkPG 37.3 mmHg AVpkAcRt 5379.5 cm/s2 AV Mean G 19.2 mmHg AV DeRt 838.6 cm/s2 AV AC 91 msec (83-118) AV Area 1 cm2 (3-5) AV ET 364 msec LVOT For Flow LVOT Area 2.3 cm2 LVOT SV 71.8 ml LVOTpkVel 146.6 cm/s HR 50.6 bpm LVOTpkPG 8.6 mmHg LVOT CO 3.6 l/min LVOTmnPG 4 mmHg LVOT CI 2.4 l/m/m2 LVOT TVI 31.6 cm Signed 03/11/2019 07:36 AM Fransico Blancas MD Procedure Note Interface, Radiology Results In - 2018 7:37 AM CDT [facility] Echocardiography Report Pat.Name: NINFA DIAZ Pat.I D: [id number] St.Date: 03/09/2019 Refer .MD: KALPANA CANELA MD Exam Time: 4:07:00 PM Study Type:Routine Echo Height: 61in Weigh t: 114lb BSA: 1.49 m2 Age: 11 1940,78Y Sex: FEMALE BP: 190/88 HR: 49 bpm Sonogrphr: GAEL Connors FASE Pat. Stat.:Outpatient Room: [place] Study Status:Final Echo Event ID:[id number] Order ID: [id number] Reason for Study:Aortic Stenosis History / Clinical:Disorder of carotid a rtery, Hypertension Procedures:2D Echo, Colorflow Doppler Race: C SUMMARY: LV EF is hyperdynamic. Estimated EF is > 70%. Diastolic dysfunction Grade II (Moderat e): Impaired relaxation with elevated LV filling pressures. LA volume is moderately enlarged. Moderate aortic valve stenosis. Estimat ed mean aortic valve gradient 19 mmHg with a valve area of 1 cm2. Dime nsionless index 0.43. Indexed valve area 0.67 sq cm/m2. Interval incre ase in peak velocities from last study in 2017. Estimated PA systolic pressure is 45 mm Hg, assuming a mean RAP of 5 mmHg. FINDINGS: LV: LV size is normal. Concentric left ventricular remodeling. LV EF is hyperdynamic. Overal l wall motion is hyperdynamic. Estimated EF is >70%. RV: RV size is normal. RV systolic function is normal. LA: LA volume is moderately enlarg ed. RA: RA size is normal. AO: Aortic root diameter is upper limits of normal in size. Calcifications in ascending a cristina. RALPH: No pericardial effusion. AV: Mild to moderate thickening an d calcification of AV leaflets. Moderate aortic med ve stenosis. Estimated mean aortic valve gradient 19 mmHg with a valve area of 1 cm2. Dimensionless index 0.43. Ind exed valve area 0.67 sq cm/m2 MV: Focal calcification of mitral leaflets. A trace of mitral regurgitation. PV: No structural PV abnormalities noted. TV: No structural TV abnormalities noted. Rivera: Diastolic dysfunction Grade II (Moderate): Impaired relaxation with elevated LV f illing pressures. Other: Estimated PA systolic pressure is 45 mmHg, assuming a mean RAP of 5 mmHg. MEASUREMENTS: 2D Parasternal [place] LVOT 1.7 cm LA D s 3.7 cm LVIDd 4.1 cm Inde x 2.7 cm/m Ao An 2.2 cm LVIDs 2.4 cm Ao R td 3.3 cm Index 2.2 cm/m LV%fs 41.4 % LV M ass 128.9 g (87-129) IVSd 1 cm LVM Index 86.5 g/m2 LVPWd 1 cm RWT 0.5 LA Sng Plane LA Area 21.4 cm2 (8.8-23.4) LA Vol 66.8 ml Index 44.9 ml/m LA LngAx 5.7 cm DOPPLER AV For Flow/BRIANNA AV pkVel 305.2 cm/s (100-170) AV AC/ET 0.2 AV mnVel 201.4 cm/s AV T 73.3 cm AV pkPG 37.3 mmHg AVpk AcRt 5379.5 cm/s2 AV Mean G 19.2 mmHg AV D eRt 838.6 cm/s2 AV AC 91 msec (83-118) AV A fausto 1 cm2 (3-5) AV ET 364 msec LVOT For Flow LVOT Area 2.3 cm2 LVOT SV 71.8 ml LVOTpkVel 146.6 cm/s HR 50.6 bpm LVOTpkPG 8.6 mmHg LVOT CO 3.6 l/min LVOTmnPG 4 mmHg LVOT CI 2.4 l/m/m2 LVOT TVI 31.6 cm Signed 03/11/2019 07:36 AM Fransico Blancas MD Performing Organization Address City/State/Zipcode Phone Number [facility] [address] [place] [address] ECG 12 lead (03/08/2019 10:00 AM CDT) Pathologist Sig nature Ventricular rate 45 [facility] Atrial rate 45 [facility] NM interval 150 [facility] QRSD interval 136 [facility] QT interval 446 [facility] QTC interval 385 [facility] P axis 1 77 [facility] QRS axis 1 10 [facility] T wave axis 65 [facility] EKG impression Sinus bradycardia with aspen ture atrial complexes-Right bundle branch block-Abnormal ECG-In automated comparison with ECG of 21-APR-2017 11:55,-Right bundle branch block is now present-Minimal criteria for Anterior infarct are no longer [facility] MUSE present-Electronically Josephine d By Steve WILSON, [facility] ([id number]) on 03/08/2019 1:17:56 PM Specimen Narrative Performed At This result has an attachment that is no t available. 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
--- OUTSIDE RECORDS SUMMARY | 2020-01-23 21:41 | XMS REPORT | Continuity of Care Document ---
:1940 Author Organization [facility] [employer] [employer] Care Team Providers Name Role Phone [facility] [employer] Unavailable Un available Problems Problem Status Onset Classification Date Comments Sourc e Date Reported POST PROCEDURAL FEVER Active [facility] AND CHILLS 019 Abby Villeda [facility] ABDUCTOR TENDON TEAR, Active [facility] LEFT HIP 019 [place]onal Urinary tract Resolved Problem 04/15/2019 multiple MH Or tho infectious disease 019 earlier in and Spine (disorder) the year, then started cranberry pills, DX: M54.5=LOW BACK Active M PAIN, M80.08XG=AGE-RE 017 [place] UNK Active 017 [facility] Arthritis (disorder) Active Problem 04/15/2019 Ortho and Spine Chronic obstructive Active Problem 04/15/2019 Ortho lung disease and (disorder) Spine,[facility] Compression fracture Active Problem 04/15/2019 Ortho of lumbar spine and (disorder) Spine,[facility] 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 tho supplemental [facility] Dyspnea on exertion Active Problem 04/15/2019 Ortho (finding) and Spine,[facility] Gastroesophageal Active Problem 04/15/2019 Ortho reflux disease and (disorder) Spine,[facility] Hypercholesterolemia Active Problem 04/15/2019 Ortho (disorder) and Spine Hypertensive disorder, Active Problem 04/15/2019 Ortho systemic arterial an d (disorder) Spine,[facility] Malignant melanoma Active Problem 04/15/2019 [facility] Ortho (disorder) and Spine Osteopenia (disorder) Active Problem 04/15/2019 Ortho and Spine Paraparesis (disorder) Resolved Problem 04/15/2019 Ortho and Spine,[facility] Restless legs Active Problem 04/15/2019 RLS Or tho (disorder) and Spine,[facility] Postprocedural fever 04/15/2019 Ortho and Spine POSTPROCEDURAL FEVER Active [facility] LOW BACK PAIN Active [facility] 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 M H CRNT PATH FX, [place], [place] Medications Medication Details Route Status Patient Ordering Order Source Instructions Provider Date Clonidine 0.1 mg = 1 tab, Active Ort ho Hydrochloride 0.1 PO, Q8H, # 90 2019 and Spine MG Oral Tablet tab, 3 Refill(s), Pharmacy: [facility]/pharmacy #[id number] Levofloxacin 500 500 mg = 1 tab, Active Ortho MG Oral Tablet PO, Q24H, X 14 2019 an d Spine [Levaquin] day, # 14 tab, 0 Refill(s), Pharmacy: [facility]/pharmacy #[id number] Diphenhydramine 25 mg = 1 tab, Active H Ortho Hydrochloride 25 PO, TID, X 7 2019 an d Spine MG Oral Tablet day, # 21 tab, [Benadryl] 0 Refill(s), Pharmacy: [facility]/pharmacy #[id number] Hydralazine 50 mg = 1 tab, Active Or tho Hydrochloride 50 PO, TID, # 90 2019 a nd Spine MG Oral Tablet tab, 3 Refill(s), Pharmacy: [facility]/pharmacy #[id number] Aspirin 81 MG 81 mg = 1 tab, Active Ortho Enteric Coated PO, BID, # 56 2019 and Spine Tablet tab, 0 Refill(s), other tramadol 50 mg = 1 tab, Active Ortho hydrochloride 50 PO, Q6H, PRN 2019 an d Spine MG Oral Tablet Pain, X 10 day, # 40 tab, 0 Refill(s), called to pharmacy [place] Notes: (Same Inactive Ortho as: Benadryl) 2019 and Spine Kayexalate Notes: (sodium Inactive Or tho polystyrene 2019 and Spine sulfonate 15 gm/60 ml LAILA) Shake well before use. (Same as: Kayexalate, SPS) Miralax Notes: Dissolve No Longer Ort ho in 8 oz of Active 2019 and Spine water or juice. (Same as: Miralax) Docusate Sodium Notes: (Same No Longer 04/12/ H Ortho 100 MG Oral as: Colace) (Do Active 2019 and Spine Capsule Not Crush) Aspirin 325 MG Notes: (Do Not No Longer Ortho Enteric Coated Crush) Do not Active 2019 an d Spine Tablet crush or chew. Zofran ODT Notes: (Same No Longer Ort ho as: Zofran ODT) Active 2019 and Spin e Tranexamic Acid Notes: (Same No Longer 04/12/ M H Ortho as: Lysteda) Active 2019 and Spine Tramadol Notes: Not to No Longer Orth o exceed Active 2019 and Spine 400mg/day. (Same As: Ultram) Hydromorphone Notes: Same as Inactive Ortho Dilaudid 2019 and Spine Labetalol 10 mg, 2 mL, No Longer Orth o Route: IVP, Active 2019 and Spine Drug form: INJ, Q5Min, Dosing Weight 53.182, kg, PRN Elevated BP, Start date: 04/11/19 18:20:00 CDT, Duration: 5 doses or times, Stop date: Limited # of times, 0 Metoprolol Notes: (Same No Longer Ort ho as: Lopressor) Active 2019 and Spine Push over 2 minutes Hydralazine Notes: (Same No Longer Or tho as: Apresoline) Active 2019 and Spin e Push over 5 minutes Promethazine Notes: Do not No Longer Ortho give IV push. Active 2019 and Spine (Same as: Phenergan) Meperidine Notes: (Same No Longer Ort ho as: Demerol) Active 2019 and Spine "Use Precaution in Elderly, Seizure disorders, and Renal impairment&quot ; Ondansetron Notes: (Same No Longer Or tho as: Zofran) Active 2019 and Spine MEDICATION WASTE Product Size: 4 mg Product Wasted: ___ mg Melatonin Notes: (Same No Longer Orth o as: Melatonin) Active 2019 and Spine Trazodone Notes: (Same No Longer Orth o As: Desyrel) Active 2019 and Spine Diphenhydramine Notes: (Same No Longer 04/11/ M H Ortho as: Benadryl) Active 2019 and Spine POLYETHYLENE Notes: Dissolve No Longer 04/11/ M H Ortho GLYCOL 3350 in 8 oz of Active 2019 and Spine water or juice. (Same as: Miralax) Aluminum Notes: No Longer Ortho Hydroxide 200 MG (aluminum Active 2018 and S pine / Magnesium hydroxide-magne Hydroxide 200 MG sium hyd- / Simethicone 25 simethicone MG Chewable [phone]/5m Tablet l 30 ml ud LAILA) Dulcolax Laxative Notes: (Same No Longer Ortho As: Dulcolax, Active 2018 and Spine Bisco-Lax) NS 1,000 mL 1,000 mL, Rate: No Longer Ortho 85 ml/hr, Active 2019 and Spine Infuse over: 11.8 hr, Route: IV, Dosing Weight 53.182 kg, Total Volume: 1,000, When PO intake adequate, okay to saline lock, Start date: 04/11/19 17:49:00 CDT, Duration: 30 day, Stop date: 05/11/19 17:48:00 CDT, 1.52, m2, 0 tranexamic acid Route: IV, Drug Inactive Ortho (ANES) form: INJ, 2018 and Spine ONCE, Stop date: 04/11/19 17:39:00 CDT cefepime (ANES) Route: IV, Drug Inactive Ortho form: INJ, 2018 and Spine ONCE, Stop date: 04/11/19 17:39:00 CDT neostigmine Route: IV, Drug Inactive Ortho (ANES) form: INJ, 2018 and Spine ONCE, Stop date: 04/11/19 17:30:00 CDT glycopyrrolate Route: IV, Drug Inactive Ortho (ANES) form: INJ, 2019 and Spine ONCE, Stop date: 04/11/19 17:30:00 CDT ondansetron Route: IV, Drug Inactive Ortho (ANES) form: INJ, 2018 and Spine ONCE, Stop date: 04/11/19 17:30:00 CDT propofol (ANES) Route: IV, Drug Inactive 04/11/ Ortho form: INJ, 2019 and Spine ONCE, Stop date: 04/11/19 16:59:00 CDT rocuronium (ANES) Route: IV, Drug Inactive 04/11 / Ortho form: INJ, 2019 and Spine ONCE, Stop date: 04/11/19 16:59:00 CDT fentaNYL (ANES) Route: IV, Drug Inactive Ortho form: INJ, 2019 and Spine ONCE, Stop date: 04/11/19 16:59:00 CDT lidocaine (ANES) Route: IV, Drug Inactive Ortho form: INJ, 2019 and Spine ONCE, Stop date: 04/11/19 16:59:00 CDT midazolam (ANES) Route: IV, Drug Inactive Ortho form: SOLN, 2019 and Spine ONCE, Stop date: 04/11/19 16:54:00 CDT ePHEDrine (ANES) Route: IV, Drug Inactive Ortho form: INJ, 2019 and Spine ONCE, Stop date: 04/11/19 16:54:00 CDT Lactated Ringers Route: IV, Inactive Ortho Injection IV Total Volume: 2019 and S pine (ANES) 1000 mL 1,000, Start date: 04/11/19 15:54:00 CDT, Stop date: 04/11/19 16:54:00 CDT Metoprolol 5 mg, Route: Inactive Orth o IV, ONCE, 2019 and Spine Dosing Weight 53.182, kg, Start date: 04/11/19 15:25:00 CDT, Stop date: 04/11/19 15:25:00 CDT metoprolol 5 mg, Route: Inactive Orth o tartrate PO, Drug form: 2019 and Spin e TAB, ONCE, Dosing Weight 53.182, kg, Start date: 04/11/19 15:08:00 CDT, Stop date: 04/11/19 15:08:00 CDT normal saline 1,000 mL, Rate: Inactive H Ortho 0.9% IV 1,000 mL 75 ml/hr, 2019 and S pine Infuse over: 13.3 hr, Route: IV, Dosing Weight 51.818 kg, Total Volume: 1,000, Start date: 04/11/19 0:01:00 CDT, Duration: 1 day, Stop date: 04/12/19 0:00:00 CDT, 1.5, m2, 0 Kayexalate Notes: (sodium Inactive Or o polystyrene 2019 and Spine sulfonate 15 gm/60 ml LAILA) Shake well before use. (Same as: Kayexalate, SPS) gabapentin 600 MG Notes: (Same No Longer Ortho Oral Tablet as: Neurontin) Active 2019 and S pine Hydralazine Notes: (Same No Longer Or tho as: Apresoline) Active 2019 and Spin e May interfere w/enteral feedings Take With Food. Trelegy Ellipta ( Trelegy Ellipta No Longer 08/0 3/ MH Ortho 100mcg/62.5mcg/25 ( Active 2019 and Sp ine mcg) 100mcg/62.5mcg/ 25mcg), 1 puff, Drug form: MISC, Route: INHALATION, RDaily, 04/09/19 8:00:00 CDT, Duration: 30 day, Stop date: 05/08/19 8:00:00 CDT, 0 hydrALAZINE Notes: (Same No Longer Or tho as: Apresoline) Active 2019 and Spin e May interfere w/enteral feedings Take With Food. Labetalol 100, 0 No Longer Ortho Active 2018 and Spine Trelegy Ellipta ( Trelegy Ellipta No Longer 080 2/ MH Ortho 100mcg/62.5mcg/25 ( Active 2019 and Sp ine mcg) 100mcg/62.5mcg/ 25mcg), 1 puff, Drug form: MISC, Route: INHALATION, RDaily, 04/07/19 20:00:00 CDT, Duration: 30 day, Stop date: 05/07/19 8:00:00 CDT, 0 carbidopa-levodop Notes: Take No Longer Ortho a with milk or Active 2019 and Spine food. (Same As: Sinemet) Restasis Notes: (Same No Longer Ortho as: Restasis) Active 2019 and Spine Aspirin 81 MG Notes: Do not No Longer Ortho Enteric Coated crush or chew. Active 2018 an d Spine Tablet (Same As: Ecotrin) Allopurinol Notes: (Same No Longer Or tho as: Zyloprim) Active 2019 and Spine Albuterol 0.1 Notes: (Same Inactive O rtho MG/ACTUAT / as: Duoneb) 2019 and Spin e Ipratropium Watson 0.02 MG/ACTUAT Metered Dose Inhaler Vitamin E 800 IntlUnit, 2 No Longer O rtho cap, Route: PO, Active 2019 and Spin e Drug form: CAP, Daily, Dosing Weight 51.818, kg, Start date: 04/07/19 9:00:00 CDT, Duration: 30 day, Stop date: 05/06/19 9:00:00 CDT, 0 ubiquinone Notes: Same as No Longer O rtho Co-Enzyme Q10 Active 2018 and Spine Ranitidine 150 MG 150 mg, 1 tab, No Longer 04/07 Ortho Oral Tablet Route: PO, Drug Active 2019 and Spine form: TAB, BID, Dosing Weight 51.818, kg, Start date: 04/07/19 9:00:00 CDT, Duration: 30 day, Stop date: 05/06/19 17:00:00 CDT Losartan Notes: (Same No Longer Ortho as: Cozaar) Active 2018 and Spine gabapentin 600 MG Notes: (Same No Longer Ortho Oral Tablet as: Neurontin) Active 2018 and S pine famotidine Notes: (Same No Longer Ort ho as: Pepcid) Active 2019 and Spine Carbidopa/Entacap Carbidopa/Entac Inactive 04/07 Ortho one/Levodopa apone/Levodopa 2019 and Spine 25/200/100mg 25/200/100mg, 1 tab, Drug form: MISC, Route: PO, QID, 04/07/19 9:00:00 CDT, Duration: 30 day, Stop date: 05/06/19 21:00:00 CDT, 0 Clonidine Notes: (Same No Longer Orth o As: Catapres) Active 2019 and Spine Carbidopa 50 MG / 1 tab, Route: Inactive Ortho entacapone 200 MG PO, Drug Form: 2019 and Spine / Levodopa 200 MG TAB, Dosing Oral Tablet Weight 51.818, kg, QID, Start date: 04/06/19 21:00:00 CDT, Duration: 30 day, Stop date: 05/06/19 17:00:00 CDT atorvastatin Notes: (Same No Longer O rtho As: Lipitor) Active 2019 and Spine Carbidopa 25 MG / Notes: Take Inactive H Ortho Levodopa 100 MG with milk or 2019 and Spine Oral Tablet food. (Same As: Sinemet) Benadryl Notes: (Same No Longer Ortho as: Benadryl) Active 2018 and Spine Albuterol 0.833 Notes: (Same No Longer 04/07/ H Ortho MG/ML / as: Duoneb) Active 2018 and Spine Ipratropium Watson 0.167 MG/ML Inhalant Solution [DuoNeb] Hydralazine Notes: (Same No Longer Or tho Hydrochloride 10 as: Apresoline) Active 2018 and Spine MG Oral Tablet May interfere w/enteral feedings. Take With Food Symbicort 160/4.5 Notes: (Same No Longer Ortho inhalation as: Symbicort) Active 2018 and Sp ine aerosol with WASTE: Aerosol adapter - Return to Pharmacy Acetaminophen 325 Notes: (Same No Longer Ortho MG / Hydrocodone as: [place] Active 2018 and S pine Bitartrate 5 MG 325/5) Do not Oral Tablet exceed 4gm/day [[place] 5/325] of acetaminophen. tramadol Notes: Not to No Longer Orth o hydrochloride 50 exceed Active 2018 and Spi ne MG Oral Tablet 400mg/day. (Same As: Ultram) Morphine Notes: (Same No Longer Ortho as:MORPhine Active 2018 and Spine Sulfate) Tylenol Notes: Do not No Longer Ortho exceed 4 Active 2019 and Spine gm/day. (Same as: Tylenol) Vancomycin 2001 mg: No Longer Ortho infuse over 2.5 Active 2018 and Spin e hours For adult patients only: Round to nearest 250 mg per Medical Staff approval MEDICATION WASTE Product Size: 1000 mg Product Wasted: ___ mg Vitamin E 800 IntlUnit, Active Ortho PO, Daily, 0 2018 and Spine Refill(s) cefepime Notes: (Same No Longer Ortho As: Maxipime) Active 2019 and Spine MEDICATION WASTE Product Size: 1000 mg Product Wasted: ___ mg Dexamethasone Notes: Inactive Ortho dexamethasone 2018 and Spine 10 mg/1 ml VL INJ PF MEDICATION WASTE Product Size: 10 mg Product Wasted: ___ mg Acetaminophen 325 1 tab, PO, Q6H, Active Ortho MG / Hydrocodone PRN Pain, X 15 2018 and Spine Bitartrate 7.5 MG day, # 40 tab, Oral Tablet 0 Refill(s), [[place] 7.5/325] given to patient Aspirin 325 MG Notes: (Do Not Inactive Ortho Enteric Coated Crush) Do not 2019 an d Spine Tablet crush or chew. Aspirin 81 MG 81 mg = 1 tab, Active Ortho Enteric Coated PO, BID, # 90 2018 and Spine Tablet tab, 3 Refill(s) Zofran ODT Notes: (Same No Longer Ort ho as: Zofran ODT) Active 2018 and Spin e Vancomycin 2001 mg: No Longer Ortho infuse over 2.5 Active 2018 and Spin e hours For adult patients only: Round to nearest 250 mg per Medical Staff approval MEDICATION WASTE Product Size: 1000 mg Product Wasted: ___ mg Tranexamic Acid Notes: (Same Inactive Ortho as: Lysteda) 2019 and Spine Cefazolin Notes: Same as: No Longer O rtho Ancef Active 2018 and Spine Docusate Sodium Notes: (Same No Longer H Ortho 100 MG Oral as: Colace) (Do Active 2019 and Spine Capsule Not Crush) gabapentin 600 MG Notes: (Same No Longer Ortho Oral Tablet as: Neurontin) Active 2018 and S pine Diphenhydramine Notes: (Same No Longer 03/14/ H Ortho as: Benadryl) Active 2018 and Spine Acetaminophen 325 Notes: Same as No Longer 03/14 Ortho MG / Hydrocodone [place] 325-7.5mg Active 2018 and Spine Bitartrate 7.5 MG Do not exceed Oral Tablet 4gm/day of [[place] 7.5/325] acetaminophen. Morphine Notes: (Same No Longer Ortho as:MORPhine Active 2019 and Spine Sulfate) Aluminum Notes: No Longer Ortho Hydroxide 200 MG (aluminum Active 2019 and S pine / Magnesium hydroxide-magne Hydroxide 200 MG sium hyd- / Simethicone 25 simethicone MG Chewable [phone]/5m Tablet l 30 ml ud LAILA) POLYETHYLENE Notes: Dissolve No Longer 03/14/ H Ortho GLYCOL 3350 in 8 oz of Active 2019 and Spine water or juice. (Same as: Miralax) Trazodone Notes: (Same No Longer Orth o As: Desyrel) Active 2018 and Spine Melatonin Notes: (Same No Longer Orth o as: Melatonin) Active 2019 and Spine Dulcolax Laxative Notes: (Same No Longer Ortho As: Dulcolax, Active 2019 and Spine Bisco-Lax) Acetaminophen 325 Notes: (Same No Longer Ortho MG / Hydrocodone as: [place] Active 2018 and S pine Bitartrate 5 MG 325/5) Do not Oral Tablet exceed 4gm/day [[place] 5/325] of acetaminophen. Tylenol Notes: Do not No Longer Ortho exceed 4 Active 2019 and Spine gm/day. (Same as: Tylenol) Famotidine Notes: (Same No Longer Ort ho as: Pepcid) Active 2019 and Spine NS 1,000 mL 1,000 mL, Rate: No Longer Ortho 85 ml/hr, Active 2019 and Spine Infuse over: 11.8 hr, Route: IV, Dosing Weight 51.818 kg, Total Volume: 1,000, When PO intake adequate, okay to saline lock, Start date: 03/14/19 14:19:00 CDT, Duration: 30 day, Stop date: 04/13/19 14:18:00 CDT, 1.5, m2, 0 glycopyrrolate Route: IV, Drug Inactive Ortho (ANES) form: INJ, 2019 and Spine ONCE, Stop date: 03/14/19 14:18:00 CDT neostigmine Route: IV, Drug Inactive Ortho (ANES) form: INJ, 2019 and Spine ONCE, Stop date: 03/14/19 14:18:00 CDT ondansetron Route: IV, Drug Inactive Ortho (ANES) form: INJ, 2019 and Spine ONCE, Stop date: 03/14/19 14:18:00 CDT ePHEDrine (ANES) Route: IV, Drug Inactive Ortho form: INJ, 2019 and Spine ONCE, Stop date: 03/14/19 14:12:00 CDT Albuterol 0.83 Notes: SEE RT Inactive Ortho MG/ML Inhalant DOCUMENTATION 2019 and Spine Solution (Same as: Proventil) Ondansetron Notes: (Same Inactive Ort ho as: Zofran) 2019 and Spine MEDICATION WASTE Product Size: 4 mg Product Wasted: ___ mg Naloxone Notes: Same as Inactive Orth o Narcan 2019 and Spine Flumazenil Notes: (Same Inactive 03/14/ Orth o as: Romazicon) 2019 and Spine Hydromorphone Notes: Same as Inactive Ortho Dilaudid 2019 and Spine Morphine Notes: (Same Inactive Ortho as:MORPhine 2019 and Spine Sulfate) ceFAZolin (ANES) Route: IV, Drug Inactive Ortho form: INJ, 2019 and Spine ONCE, Stop date: 03/14/19 12:25:00 CDT dexamethasone Route: IV, Drug Inactive 03/14/ H Ortho (ANES) form: INJ, 2019 and Spine ONCE, Stop date: 03/14/19 12:25:00 CDT fentaNYL (ANES) Route: IV, Drug Inactive Ortho form: INJ, 2019 and Spine ONCE, Stop date: 03/14/19 12:15:00 CDT lidocaine (ANES) Route: IV, Drug Inactive 03/14/ Ortho form: INJ, 2019 and Spine ONCE, Stop date: 03/14/19 12:15:00 CDT propofol (ANES) Route: IV, Drug Inactive 03/14/ Ortho form: INJ, 2019 and Spine ONCE, Stop date: 03/14/19 12:15:00 CDT rocuronium (ANES) Route: IV, Drug Inactive 03/14 Ortho form: INJ, 2019 and Spine ONCE, Stop date: 03/14/19 12:15:00 CDT hydrALAZINE Route: IV, Drug Inactive Ortho (ANES) form: INJ, 2019 and Spine ONCE, Stop date: 03/14/19 12:15:00 CDT Lactated Ringers Route: IV, Inactive Ortho Injection IV Total Volume: 2019 and S pine (ANES) 1000 mL 1,000, Start date: 03/14/19 11:20:00 CDT, Stop date: 03/14/19 12:20:00 CDT Lactated Ringers 1,000 mL, Rate: No Longer 03/14 Ortho IV 1,000 mL TKO, Route: IV, Active 2019 and Spine Dosing Weight 51.818 kg, Total Volume: 1,000, Start date: 03/14/19 9:52:00 CDT, Duration: 30 day, Stop date: 04/13/19 9:51:00 CDT, 1.5, m2, 0 Vancomycin 2001 mg: Inactive Ortho infuse over 2.5 2019 and Spin e hours For adult patients only: Round to nearest 250 mg per Medical Staff approval ropivacaine Notes: NOT No Longer O rtho FOR IV use Active 2019 and Spine Each mL contains: Ropivacaine 2.46 mg, Epinephrine 0.005 mg, Clonidine 0.0008 mg and Ketorolac 0.3 mg in Sodium Chloride Dexamethasone Notes: Inactive Ortho dexamethasone 2019 and Spine 10 mg/1 ml VL INJ PF MEDICATION WASTE Product Size: 10 mg Product Wasted: ___ mg Tranexamic Acid Notes: (Same Inactive Ortho as: Lysteda) 2019 and Spine Zofran ODT Notes: (Same Inactive Orth o as: Zofran ODT) 2019 and Spin e ropivacaine 0.5% 100 ml/hr, No Longer Ortho 246.25 mg + Route: Active 2019 and Spine EPINEPHrine 0.5 InFILtration(lo mg + cloNIDine 80 albert), ONCALL, microgram + Start date: Sodium Chloride 03/14/19 0.9% IV 6:00:00 CDT, Stop date: 03/15/19 0:00:00 CDT, 0 polymyxin B Notes: (Same No Longer Or o sulfate + Sodium as: Polymyxin B Active 2018 and Spine Chloride 0.9% IV Sulfate) 250 mL vancomycin + Notes: TIME No Longer Or o Sodium Chloride CRITICAL Active 2018 and Spi ne 0.9% IV 250 mL MEDICATION (Same As: Vancocin) For adult patients only: Round to nearest 250 mg per Medical Staff approval Albuterol 0.1 1 puff, Active Ortho MG/ACTUAT / INHALATION, 2018 and Spin e Ipratropium QID, 0 Watson 0.02 Refill(s) MG/ACTUAT Metered Dose Inhaler tramadol 100 mg = 2 tab, Active Orth o hydrochloride 50 PO, Daily, PRN 2018 and Spine MG Oral Tablet Pain, # 40 tab, 0 Refill(s) Loratadine 10 mg = 1 tab, No Longer O rtho PO, Daily, PRN Active 2018 and Spine Itching / rash / allergy symptoms, # 14 tab, 0 Refill(s) 8 HR 1,300 mg = 2 Active Ortho Acetaminophen 650 tab, PO, Q8H, 0 2018 and Spine MG Extended Refill(s) Release Tablet [Tylenol] Calcium Citrate PO, BID, 0 No Longer Ortho Refill(s) Active 2018 and Spine Restasis 1 drp, BOTH Active Ortho EYES, Q12H, 0 2019 and Spine Refill(s) Trelegy Ellipta = 1 puff, Active Ort ho inhalation powder INHALATION, 2019 an d Spine Daily, 0 Refill(s) Hydralazine 10 mg = 1 tab, Active Or tho Hydrochloride 10 PO, BID, # 120 2019 and Spine MG Oral Tablet tab, 0 Refill(s) Vitamin E PO, Daily, 0 No Longer Orth o Refill(s) Active 2019 and Spine gabapentin 600 MG 2 tabs, PO, Active Ortho Oral Tablet BID, # 270 tab, 2019 and Spine 0 Refill(s) losartan 100 mg 100 mg = 1 tab, Active Ortho oral tablet PO, Daily, # 30 2019 and Spine tab, 0 Refill(s) Diphenhydramine 25 mg = 1 tab, Active H Ortho Hydrochloride 25 PO, TID, 0 2019 and Spine MG Oral Tablet Refill(s) [Benadryl] Ranitidine 150 MG 150 mg = 1 tab, Active Ortho Oral Tablet PO, BID, # 60 2019 and Sp ine tab, 0 Refill(s) Flumazenil 0.2 mg, Route: Inactive IVP, PRN, 2016 [facility] Dosing Weight 60.938, kg, PRN Benzodiazepine Reversal, Initial dose, Start date: 12/08/16 9:02:00 CDT, Duration: 30 day, Stop date: 01/07/17 9:01:00 CDT Fentanyl 50 microgram, Inactive Route: IVP, 2016 [facility] Q5Min, Dosing Weight 60.938, kg, PRN Pain Score 7-10, Priority: Routine, Start date: 12/08/16 9:02:00 CDT, Duration: 2 doses or times, Stop date: Limited # of times Acetaminophen 1,000 mg, Inactive Route: IVPB, 2016 [facility] Drug form: INJ, ONCE, Dosing Weight 60.938, kg, PRN Pain Score 1-3, Start date: 12/08/16 9:02:00 CDT, Duration: 1 doses or times, Stop date: Limited # of times Ketorolac 30 mg, Route: Inactive IVP, ONCE, 2016 [facility] Dosing Weight 60.938, kg, Start date: 12/08/16 9:02:00 CDT, Duration: 1 doses or times, Stop date: 12/08/16 9:02:00 CDT Morphine 2 mg, Route: Inactive IVP, Q5Min, 2016 [facility] Dosing Weight 60.938, kg, PRN Pain Score 4-6, Start date: 12/08/16 9:02:00 CDT, Duration: 5 doses or times, Stop date: Limited # of times Hydromorphone 0.5 mg, Route: Inactive IVP, Q5Min, 2016 [facility] Dosing Weight 60.938, kg, PRN Pain Score 7-10, Start date: 12/08/16 9:02:00 CDT, Duration: 4 doses or times, Stop date: Limited # of times Oxycodone 10 mg, Route: Inactive PO, Drug form: 2016 [facility] TAB, Q4H, Dosing Weight 60.938, kg, PRN Pain Score 7-10, Start date: 12/08/16 9:02:00 CDT, Duration: 30 day, Stop date: 01/07/17 9:01:00 CDT Naloxone 0.4 mg, Route: Inactive IVP, Q2MIN, 2016 [facility] Dosing Weight 60.938, kg, PRN Narcotic Reversal, Start date: 12/08/16 9:02:00 CDT, Duration: 8 doses or times, Stop date: Limited # of times Meperidine 12.5 mg, Route: Inactive IVP, Q30Min, 2016 [facility] Dosing Weight 60.938, kg, PRN Other -See Comment, For shivering, Start date: 12/08/16 9:02:00 CDT, Duration: 2 doses or times, Stop date: Limited # of times Diphenhydramine 12.5 mg, Route: Inactive IVP, Drug form: 2016 [place] INJ, Q6H, Dosing Weight 60.938, kg, PRN Itching, Start date: 12/08/16 9:02:00 CDT, Duration: 30 day, Stop date: 01/07/17 9:01:00 CDT 72 HR Scopolamine 1 patch, Route: Inactive 12/08 0.0139 MG/HR TOP, Drug Form: 2016 [facility] Transdermal Patch ERFILM, Dosing Weight 60.938, kg, ONCE, Apply behind ear. Avoid use in elderly., Start date: 12/08/16 9:02:00 CDT, Stop date: 12/08/16 9:02:00 CDT Promethazine 6.25 mg, Route: Inactive IVPB, ONCE, 2016 [facility] Dosing Weight 60.938, kg, PRN Nausea & Vomiting, Start date: 12/08/16 9:02:00 CDT Ondansetron 4 mg, Route: Inactive 04/03/ MH IVP, ONCE, 2016 [facility] Dosing Weight 60.938, kg, PRN Nausea & Vomiting, Start date: 12/08/16 9:02:00 CDT Calcium Chloride 1,000 mL, Rate: Inactive 12/08/ MH 0.0014 MEQ/ML / 125 ml/hr, 2016 [facility] Potassium Infuse over: 8 Chloride 0.004 hr, Route: IV, MEQ/ML / Sodium Dosing Weight Chloride 0.103 60.938 kg, MEQ/ML / Sodium Total Volume: Lactate 0.028 1,000, Start MEQ/ML Injectable date: 12/08/16 Solution 9:02:00 CDT, Duration: 30 day, Stop date: 01/07/17 9:01:00 CDT lidocaine (ANES) Route: IV, Drug Inactive 12/08/ MH form: INJ, 2016, Stop date: 12/08/16 8:36:00 CDT fentaNYL (ANES) Route: IV, Drug Inactive 12/08/ MH form: INJ, 2016, Stop date: 12/08/16 8:22:00 CDT ondansetron Route: IV, Drug Inactive 12/08/ MH (ANES) form: INJ, 2016, Stop date: 12/08/16 8:22:00 CDT Cleocin Phosphate Route: IV, Drug Inactive 12/08 / MH (ANES) (ANES) form: INJ, [address] [facility] [address] Start date: 12/08/16 7:55:00 CDT, Stop date: 12/08/16 8:55:00 CDT propofol (ANES) Route: IV, Drug Inactive 12/08/ MH (ANES) form: INJ, 2016 Start date: 12/08/16 7:49:00 CDT, Stop date: 12/08/16 8:49:00 CDT LR 1000 mL INJ Route: IV, Inactive 12/08/ MH (ANES) Total Volume: 2016 [facility] 1,000, Start date: 12/08/16 7:42:00 CDT, Stop date: 12/08/16 8:42:00 CDT Calcium Chloride 1,000 mL, Rate: Inactive 12/08/ MH 0.0014 MEQ/ML / 25 ml/hr, 2016 [facility] Potassium Infuse over: 40 Chloride 0.004 hr, Route: IV, MEQ/ML / Sodium Dosing Weight Chloride 0.103 60.938 kg, MEQ/ML / Sodium Total Volume: Lactate 0.028 1,000, Start MEQ/ML Injectable date: 12/08/16 Solution 6:57:00 CDT, Duration: 30 day, Stop date: 01/07/17 6:56:00 CDT Albuterol 0.833 3 mL, Route: Inactive MG/ML / NEB, Dosing 2016 [facility] Ipratropium Weight 60.938, Watson 0.167 kg, ONCE, STAT, MG/ML Inhalant Start date: Solution 12/04/16 9:31:00 CDT, Stop date: 12/04/16 9:31:00 CDT Calcium Chloride 1,000 mL, Rate: Inactive 0.0014 MEQ/ML / 25 ml/hr, 2016 [facility] Potassium Infuse over: 40 Chloride 0.004 hr, Route: IV, MEQ/ML / Sodium Dosing Weight Chloride 0.103 60.938 kg, MEQ/ML / Sodium Total Volume: Lactate 0.028 1,000, Start MEQ/ML Injectable date: 12/04/16 Solution 9:31:00 CDT, Duration: 30 day, Stop date: 01/03/17 9:30:00 CDT Flax Seed Oil 1,000 mg =, PO, Active oral capsule BID, 0 2016 Refill(s) Glucosamine & 1 tab, PO, TID, Active Chondroitin with 0 Refill(s) 2016 [facility] azithromycin 250 250 mg = 1 tab, Active MH mg oral tablet PO, Daily, # 6 2017 [place] tab, 0 Refill(s) Norvasc PO, Bedtime, 0 Active Refill(s) 2016 Carbidopa 50 MG / 1 tab, PO, QID, Active entacapone 200 MG # 120 tab, 0 2017 [place] / Levodopa 200 MG Refill(s) Oral Tablet Allergies, Adverse Reactions, Alerts Substance Category Reaction Severity Reaction Status Date Comments S ource type Reported Adhesive Assertion Drug Active MH Or tho Tape allergy and Spin e Benicar Assertion Drug Active MH allergy Southeas t penicillins Assertion Drug Active MH allergy [place] t penicillins< Assertion Drug Active facial M H Ortho sup>1</sup> allergy swelling and Spine Benicar<sup> Assertion Drug Active severe M H Ortho 2</sup> allergy hypotension and Spine Immunizations No Data Provided for This Section Results Order Name Results Value Reference Date Interpretation Comments Sydnee rce Range HEMATOLOGY Hgb 8.3 12.0 - 08/07 Ortho 16.0 /2018 and Spine HEMATOLOGY Hct 25.6 36.0 - 08/07 Ortho 48.0 /2018 and Spine CHEM PANEL Glucose Lvl 114 70 - 99 08/06 Ortho and Spine CHEM PANEL Chloride Lvl 107 95 - 109 08/ Orth o and Spine CHEM PANEL Sodium Lvl 141 135 - 145 08/ Ortho and Spine CHEM PANEL Potassium 5.0 3.5 - 5.1 08/ Ortho Lvl /2018 and Spine CHEM PANEL BUN 20 7 - 22 08/ Ortho and Spine CHEM PANEL Creatinine 1.40 0.50 - 08/ Ortho Lvl 1.40 /2018 and Spine CHEM PANEL CO2 28 24 - 32 08/ Ortho and Spine CHEM PANEL Calcium Lvl 8.8 8.5 - 10.5 08/ Ort ho /2018 and Spine CHEM PANEL eGFR 36 08/06 [facility] Ortho Comment: The and Spine eGFR is calculated using the CKD-EPI formula. In most young, healthy individuals the eGFR will be >90 mL/min/1.73m2 . The eGFR declines with age. An eGFR of 60-89 may be normal in some populations, particularly the elderly, for whom the CKD-EPI formula has not been extensively validated. Use of the eGFR is not recommended in the following populations:< br/>
Ros viduals with unstable creatinine concentration s, including patients and those with serious co-morbid conditions.<b r/>
Patie nts with extremes in muscle mass or diet.

The data above are obtained from the National Kidney Disease Education Program (NKDEP) which additionally recommends that when the eGFR is used in patients with extremes of body mass index for purposes of drug dosing, the eGFR should be multiplied by the estimated BMI. CHEM PANEL AGAP 11.0 10.0 - 08/06 Ortho 20.0 /2019 and Spine HEMATOLOGY Basophils # 0.1 0.0 - 0.2 08/06 MH Orth o /2019 and Spine HEMATOLOGY Eosinophils 0.5 0.0 - 0.5 08/06 MH Orth o # /2019 and Spine HEMATOLOGY Lymphocytes 1.5 1.0 - 5.5 08/ MH Orth o # /2019 and Spine HEMATOLOGY Monocytes # 1.3 0.0 - 0.8 08/06 MH Orth o /2019 and Spine HEMATOLOGY Neutrophils 9.4 1.5 - 8.1 08/ MH Orth o # /2019 and Spine HEMATOLOGY Basophils 0.7 0.0 - 1.0 08/06 MH Ortho /2019 and Spine HEMATOLOGY Lymphocytes 11.4 20.0 - 08/06 MH Ortho 40.0 /2019 and Spine HEMATOLOGY Eosinophils 3.8 0.0 - 4.0 08/ MH Orth o /2019 and Spine HEMATOLOGY Monocytes 10.4 2.0 - 12.0 08/ MH Ortho /2018 and Spine HEMATOLOGY Segs 73.7 45.0 - 08/06 Ortho 75.0 /2019 and Spine HEMATOLOGY WBC 12.8 3.7 - 10.4 08/ MH Ortho /2018 and Spine HEMATOLOGY RBC 2.83 4.20 - 08/06 Ortho 5.40 /2019 and Spine HEMATOLOGY RDW 15.4 11.5 - 08/06 Ortho 14.5 /2019 and Spine HEMATOLOGY Hct 26.1 36.0 - 08/ Ortho 48.0 /2018 and Spine HEMATOLOGY MCV 92.0 80.0 - 08/ Ortho 98.0 /2019 and Spine HEMATOLOGY MCH 30.2 27.0 - 08/06 MH Ortho 31.0 /2018 and Spine HEMATOLOGY MCHC 32.9 32.0 - 08/06 Ortho 36.0 /2018 and Spine HEMATOLOGY Platelet 293 133 - 450 / Ortho and Spine HEMATOLOGY MPV 8.0 7.4 - 10.4 08/ MH Ortho /2019 and Spine HEMATOLOGY Hgb 8.6 12.0 - 08/06 Ortho 16.0 /2018 and Spine CIPROFLOXA Gram Stain No Wbc'S 04/12 Ortho DOMINIQUE:SUSC:P Report Or /2018 and Spine T:ISOLATE: Organisms ORDQN:EUGENIO Seen CIPROFLOXA C Synov w/GS Rare 04/12 Ortho DOMINIQUE:SUSC:P Serratia /2018 and Spine T:ISOLATE: marcescens ORDQN:EUGENIO CIPROFLOXA Serratia Serratia 04/12 Ortho DOMINIQUE:SUSC:P marcescens marcescens /2018 and Spi ne T:ISOLATE: ORDQN:EUGENIO Culture: No 04/12 Ortho Anaerobic Anaerobes /2018 and Spine Isolated After 2 Days BLOOD BANK ABO/Rh O POS 04/11 Ortho RESULTS /2018 and Spine BLOOD BANK Antibody Negative 04/11 Ortho RESULTS Scrn (04/11/19 4:56 AM) /2018 and Spi ne CHEM PANEL Glucose Lvl 99 70 - 99 08/05 MH Ortho /2018 and Spine CHEM PANEL BUN 22 7 - 22 08/05 Ortho and Spine CHEM PANEL CO2 29 24 - 32 / Ortho and Spine CHEM PANEL Chloride Lvl 106 95 - 109 / Orth o and Spine CHEM PANEL Potassium 4.8 3.5 - 5.1 /05 MH Ortho Lvl /2018 and Spine CHEM PANEL Calcium Lvl 8.9 8.5 - 10.5 / Ort ho /2018 and Spine CHEM PANEL Sodium Lvl 141 135 - 145 /05 MH Ortho and Spine CHEM PANEL Creatinine 1.26 0.50 - 08/05 MH Ortho Lvl 1.40 /2018 and Spine CHEM PANEL eGFR 41 08/05 Result Ortho Comment: The and Spine eGFR is calculated using the CKD-EPI formula. In most young, healthy individuals the eGFR will be >90 mL/min/1.73m2 . The eGFR declines with age. An eGFR of 60-89 may be normal in some populations, particularly the elderly, for whom the CKD-EPI formula has not been extensively validated. Use of the eGFR is not recommended in the following populations:< br/>
Ros viduals with unstable creatinine concentration s, including patients and those with serious co-morbid conditions.<b r/>
Patie nts with extremes in muscle mass or diet.

The data above are obtained from the National Kidney Disease Education Program (NKDEP) which additionally recommends that when the eGFR is used in patients with extremes of body mass index for purposes of drug dosing, the eGFR should be multiplied by the estimated BMI. CHEM PANEL AGAP 10.8 10.0 - 08/05 MH Ortho 20.0 /2018 and Spine HEMATOLOGY Sed Rate 73 0 - 20 08/05 Ortho and Spine IMMUNOLOGY C-REACTIVE 96.3 <=2.9 mg/L 04/11 Orth o PROTEIN and Spine CHEM PANEL eGFR 40 / Result Ortho Comment: The and Spine eGFR is calculated using the CKD-EPI formula. In most young, healthy individuals the eGFR will be >90 mL/min/1.73m2 . The eGFR declines with age. An eGFR of 60-89 may be normal in some populations, particularly the elderly, for whom the CKD-EPI formula has not been extensively validated. Use of the eGFR is not recommended in the following populations:< br/>
Ros viduals with unstable creatinine concentration s, including patients and those with serious co-morbid conditions.<b r/>
Patie nts with extremes in muscle mass or diet.

The data above are obtained from the National Kidney Disease Education Program (NKDEP) which additionally recommends that when the eGFR is used in patients with extremes of body mass index for purposes of drug dosing, the eGFR should be multiplied by the estimated BMI. CHEM PANEL Potassium 5.3 3.5 - 5.1 / Ortho Lvl /2018 and Spine CHEM PANEL Sodium Lvl 143 135 - 145 08/ Ortho and Spine CHEM PANEL Calcium Lvl 8.6 8.5 - 10.5 08/ Ort ho and Spine CHEM PANEL CO2 29 24 - 32 08/ Ortho and Spine CHEM PANEL Chloride Lvl 108 95 - 109 / Orth o and Spine CHEM PANEL Creatinine 1.28 0.50 - 08/ MH Ortho Lvl 1.40 /2018 and Spine CHEM PANEL Glucose Lvl 117 70 - 99 08/ Ortho and Spine CHEM PANEL BUN 20 7 - 22 08/ Ortho and Spine CHEM PANEL AGAP 11.3 10.0 - 08/ Ortho 20.0 and Spine HEMATOLOGY Hct 26.0 36.0 - 08/04 Ortho 48.0 and Spine HEMATOLOGY MCV 92.0 80.0 - 08/04 Ortho 98.0 and Spine HEMATOLOGY RDW 15.6 11.5 - 08/ Ortho 14.5 and Spine HEMATOLOGY Platelet 266 133 - 450 08/ MH Ortho /2018 and Spine HEMATOLOGY MCH 29.9 27.0 - 08/04 MH Ortho 31.0 /2019 and Spine HEMATOLOGY MPV 8.6 7.4 - 10.4 / MH Ortho /2019 and Spine HEMATOLOGY MCHC 32.5 32.0 - 08/04 MH Ortho 36.0 /2019 and Spine HEMATOLOGY Hgb 8.4 12.0 - 08/ MH Ortho 16.0 /2019 and Spine HEMATOLOGY RBC 2.82 4.20 - 08/ MH Ortho 5.40 /2019 and Spine HEMATOLOGY WBC 9.1 3.7 - 10.4 08/ MH Ortho /2019 and Spine IMMUNOLOGY C-REACTIVE 145.0 <=2.9 mg/L 04/09 MH Orth o PROTEIN and Spine HEMATOLOGY Monocytes 13.4 2.0 - 12.0 04/08 MH Ortho /2019 and Spine HEMATOLOGY Eosinophils 3.5 0.0 - 4.0 04/08 MH Orth o /2018 and Spine HEMATOLOGY Basophils 0.7 0.0 - 1.0 04/08 MH Ortho /2019 and Spine HEMATOLOGY Segs 70.9 45.0 - 08/ MH Ortho 75.0 /2019 and Spine HEMATOLOGY Lymphocytes 11.5 20.0 - 08/ MH Ortho 40.0 /2019 and Spine HEMATOLOGY Monocytes # 1.8 0.0 - 0.8 / MH Orth o /2019 and Spine HEMATOLOGY Eosinophils 0.5 0.0 - 0.5 / MH Orth o # /2019 and Spine HEMATOLOGY Basophils # 0.1 0.0 - 0.2 08/ MH Orth o /2019 and Spine HEMATOLOGY Neutrophils 9.6 1.5 - 8.1 04/08 MH Orth o # /2018 and Spine HEMATOLOGY Lymphocytes 1.6 1.0 - 5.5 / MH Orth o # /2018 and Spine HEMATOLOGY MCH 30.0 27.0 - 08/ MH Ortho 31.0 /2019 and Spine HEMATOLOGY MPV 8.9 7.4 - 10.4 / MH Ortho /2019 and Spine HEMATOLOGY MCHC 32.6 32.0 - 08/ MH Ortho 36.0 /2019 and Spine HEMATOLOGY Platelet 256 133 - 450 04/08 MH Ortho and Spine HEMATOLOGY RDW 16.1 11.5 - 08/ MH Ortho 14.5 /2019 and Spine HEMATOLOGY WBC 13.6 3.7 - 10.4 08 MH Ortho /2019 and Spine HEMATOLOGY MCV 92.0 80.0 - 08/ MH Ortho 98.0 /2019 and Spine HEMATOLOGY RBC 2.78 4.20 - 08/ MH Ortho 5.40 /2019 and Spine TOXICOLOGY Vanco Tr TND 0600 / MH Ortho /2018 and Spine TOXICOLOGY Vanco Tr 27.2 08/ MH Ortho /2019 and Spine HEMATOLOGY Eosinophils 0.1 0.0 - 0.5 04/06 MH Orth o # /2019 and Spine HEMATOLOGY Basophils # 0.1 0.0 - 0.2 04/06 MH Orth o /2019 and Spine HEMATOLOGY Segs 77.7 45.0 - 04/06 MH Ortho 75.0 /2019 and Spine HEMATOLOGY Eosinophils 0.8 0.0 - 4.0 04/06 MH Orth o /2018 and Spine HEMATOLOGY Lymphocytes 10.7 20.0 - 04/06 MH Ortho 40.0 /2019 and Spine HEMATOLOGY Monocytes 10.4 2.0 - 12.0 04/06 MH Ortho and Spine HEMATOLOGY Monocytes # 1.6 0.0 - 0.8 04/06 MH Orth o /2018 and Spine HEMATOLOGY Lymphocytes 1.6 1.0 - 5.5 04/06 MH Orth o # /2019 and Spine HEMATOLOGY Neutrophils 11.9 1.5 - 8.1 04/06 MH Orth o # /2018 and Spine HEMATOLOGY Basophils 0.4 0.0 - 1.0 04/06 MH Ortho and Spine CHEM PANEL Calcium Lvl 8.8 8.5 - 10.5 03/15 MH Ort ho /2018 and Spine CHEM PANEL Potassium 4.7 3.5 - 5.1 03/15 MH Ortho Lvl /2019 and Spine CHEM PANEL Chloride Lvl 107 95 - 109 03/15 MH Orth o /2019 and Spine CHEM PANEL Sodium Lvl 142 135 - 145 03/15 MH Ortho and Spine CHEM PANEL CO2 27 24 - 32 03/15 MH Ortho and Spine CHEM PANEL eGFR 28 03/15 Result Ortho Comment: The and Spine eGFR is calculated using the CKD-EPI formula. In most young, healthy individuals the eGFR will be >90 mL/min/1.73m2 . The eGFR declines with age. An eGFR of 60-89 may be normal in some populations, particularly the elderly, for whom the CKD-EPI formula has not been extensively validated. Use of the eGFR is not recommended in the following populations:< br/>
Ros viduals with unstable creatinine concentration s, including patients and those with serious co-morbid conditions.<b r/>
Patie nts with extremes in muscle mass or diet.

The data above are obtained from the National Kidney Disease Education Program (NKDEP) which additionally recommends that when the eGFR is used in patients with extremes of body mass index for purposes of drug dosing, the eGFR should be multiplied by the estimated BMI. CHEM PANEL Glucose Lvl 117 70 - 99 / Ortho and Spine CHEM PANEL BUN 36 7 - 22 03/15 Ortho and Spine CHEM PANEL Creatinine 1.71 0.50 - 03/15 Ortho Lvl 1.40 /2018 and Spine CHEM PANEL AGAP 12.7 10.0 - 03/15 Ortho 20.0 and Spine HEMATOLOGY Hgb 9.2 12.0 - 03/15 Ortho 16.0 and Spine HEMATOLOGY Hct 27.4 36.0 - 03/15 Ortho 48.0 and Spine URINE AND UA Leuk Est Negative Negative 03/09 Ortho STOOL (03/09/19 12:26 PM) and Sp ine URINE AND UA 0.2 0.1 - 1.0 03/09 Ortho STOOL Urobilinogen and Spine URINE AND UA Nitrite Negative Negative 03/09 Ortho STOOL (03/09/19 12:26 PM) and Sp ine URINE AND UA Spec Grav 1.010 <=1.030 03/09 Ortho STOOL and Spine URINE AND UA pH 6.0 5.0 - 8.0 03/09 Ortho STOOL and Spine URINE AND UA Protein Negative Negative 03/09 Ortho STOOL mg/dL mg/dL and Spine URINE AND UA Glucose Negative Negative 03/09 Ortho STOOL mg/dL mg/dL and Spine URINE AND UA Ketones Negative Negative 03/09 Ortho STOOL mg/dL mg/dL and Spine URINE AND UA Turbidity Clear Clear 03/09 Ortho STOOL (03/09/19 12:26 PM) and Sp ine URINE AND UA Color Yellow Yellow 03/09 Ortho STOOL *NA* /2018 and Spine (03/09/19 12:26 PM) URINE AND UA Bili Negative Negative 03/09 Ortho STOOL *NA* /2018 and Spine (03/09/19 12:26 PM) URINE AND UA Blood Negative Negative 03/09 Ortho STOOL (03/09/19 12:26 PM) and Sp ine URINE AND UA RBC 0-2 /HPF 0 - 2 03/09 Ortho STOOL and Spine URINE AND UA Sq Epi Occasional Few /LPF 03/09 MH Ortho STOOL /LPF /2018 and Spine URINE AND UA Bacteria Occasional None Seen 03/09 MH Or tho STOOL /HPF /HPF /2018 and Spine URINE AND UA WBC 0-2 /HPF None Seen 03/09 Ortho STOOL /HPF /2018 and Spine BLOOD BANK ABO/Rh O POS 03/09 Ortho RESULTS and Spine BLOOD BANK Antibody Negative 03/09 Ortho RESULTS Scrn (03/09/19 12:13 PM) and Sp ine CHEM PANEL eGFR 27 03/09 Result Ortho Comment: The and Spine eGFR is calculated using the CKD-EPI formula. In most young, healthy individuals the eGFR will be >90 mL/min/1.73m2 . The eGFR declines with age. An eGFR of 60-89 may be normal in some populations, particularly the elderly, for whom the CKD-EPI formula has not been extensively validated. Use of the eGFR is not recommended in the following populations:< br/>
Ros viduals with unstable creatinine concentration s, including patients and those with serious co-morbid conditions.<b r/>
Patie nts with extremes in muscle mass or diet.

The data above are obtained from the National Kidney Disease Education Program (NKDEP) which additionally recommends that when the eGFR is used in patients with extremes of body mass index for purposes of drug dosing, the eGFR should be multiplied by the estimated BMI. CHEM PANEL ASPARTATE 18 0 - 37 03/09 Ortho TRANSAMINASE and Spine CHEM PANEL Alk Phos 70 39 - 136 03/09 Ortho and Spine CHEM PANEL Bili Total 0.2 0.2 - 1.3 03/09 Ortho /2018 and Spine CHEM PANEL Total 7.0 6.4 - 8.4 03/09 Ortho Protein and Spine CHEM PANEL Albumin Lvl 3.2 3.5 - 5.0 03/09 Orth o and Spine CHEM PANEL ALANINE 11 0 - 65 07/ Ortho AMINOTRANSFE /2018 and Spine RASE CHEM PANEL CO2 26 24 - 32 07/ MH Ortho 2019 and Spine CHEM PANEL Calcium Lvl 9.5 8.5 - 10.5 07/ MH Ort ho /2018 and Spine CHEM PANEL Glucose Lvl 96 70 - 99 07/ Ortho and Spine CHEM PANEL Potassium 4.8 3.5 - 5.1 07/ MH Ortho Lvl /2018 and Spine CHEM PANEL Chloride Lvl 107 95 - 109 07/ MH Orth o /2018 and Spine CHEM PANEL BUN 45 7 - 22 07/ Ortho and Spine CHEM PANEL Sodium Lvl 142 135 - 145 07/ Ortho and Spine CHEM PANEL Creatinine 1.79 0.50 - 07/ Ortho Lvl 1.40 /2018 and Spine CHEM PANEL Globulin 3.8 2.7 - 4.2 07/ Ortho and Spine CHEM PANEL B/C Ratio 25 6 - 25 07/ Ortho 2019 and Spine CHEM PANEL A/G Ratio 0.8 0.7 - 1.6 07/ MH Ortho /2019 and Spine CHEM PANEL AGAP 13.8 10.0 - 07/03 Ortho 20.0 /2019 and Spine HEMATOLOGY Eosinophils 0.2 0.0 - 0.5 07/ MH Orth o # /2018 and Spine HEMATOLOGY Basophils # 0.1 0.0 - 0.2 07/ MH Orth o 2019 and Spine HEMATOLOGY Neutrophils 7.3 1.5 - 8.1 / Orth o # /2019 and Spine HEMATOLOGY Basophils 1.0 0.0 - 1.0 07/ MH Ortho 2019 and Spine HEMATOLOGY Monocytes # 1.1 0.0 - 0.8 07/ MH Orth o /2019 and Spine HEMATOLOGY Lymphocytes 1.8 1.0 - 5.5 07/ MH Orth o # /2019 and Spine HEMATOLOGY Lymphocytes 16.7 20.0 - 07/03 Ortho 40.0 /2019 and Spine HEMATOLOGY Monocytes 10.5 2.0 - 12.0 07/ MH Ortho /2019 and Spine HEMATOLOGY Eosinophils 2.3 0.0 - 4.0 07/ MH Orth o /2019 and Spine HEMATOLOGY Segs 69.5 45.0 - 07/03 Ortho 75.0 /2019 and Spine HEMATOLOGY aPTT 43.0 22.9 - 07/03 MH Ortho 35.8 /2019 and Spine HEMATOLOGY PROTIME 12.7 12.0 - 07/ MH Ortho 14.7 /2019 and Spine HEMATOLOGY INR 0.97 0.85 - 07/ MH Ortho 1.17 /2018 and Spine HEMATOLOGY MPV 9.2 7.4 - 10.4 07/ MH Ortho /2019 and Spine HEMATOLOGY Platelet 277 133 - 450 07/ MH Ortho /2019 and Spine HEMATOLOGY WBC 10.5 3.7 - 10.4 07/03 MH Ortho /2019 and Spine HEMATOLOGY RBC 3.32 4.20 - 07/03 MH Ortho 5.40 /2019 and Spine HEMATOLOGY Hgb 10.0 12.0 - 07/ MH Ortho 16.0 /2019 and Spine HEMATOLOGY MCV 92.8 80.0 - 07/ MH Ortho 98.0 /2019 and Spine HEMATOLOGY Hct 30.8 36.0 - 07/ MH Ortho 48.0 /2018 and Spine HEMATOLOGY MCH 30.0 27.0 - 07/ MH Ortho 31.0 /2018 and Spine HEMATOLOGY RDW 17.0 11.5 - 03/09 MH Ortho 14.5 /2019 and Spine HEMATOLOGY MCHC 32.4 32.0 - 07/ MH Ortho 36.0 /2019 and Spine ELECTROLYT AGAP 14.1 10.0 - 12/04 MH ES 20.0 /2016 [facility] ELECTROLYT eGFR 36 12/04 Result ES /2016 Comment: The [facility] eGFR is calculated using the CKD-EPI formula. In most young, healthy individuals the eGFR will be >90 mL/min/1.73m2 . The eGFR declines with age. An eGFR of 60-89 may be normal in some populations, particularly the elderly, for whom the CKD-EPI formula has not been extensively validated. Use of the eGFR is not recommended in the following populations:< br/>
Ros viduals with unstable creatinine concentration s, including patients and those with serious co-morbid conditions.<b r/>
Patie nts with extremes in muscle mass or diet.

The data above are obtained from the National Kidney Disease Education Program (NKDEP) which additionally recommends that when the eGFR is used in patients with extremes of body mass index for purposes of drug dosing, the eGFR should be multiplied by the estimated BMI. ELECTROLYT Creatinine 1.40 0.50 - 12/04 MH ES Lvl 1.40 /2016 [facility] ELECTROLYT Potassium 4.1 3.5 - 5.1 12/04 MH ES Lvl /2016 [facility] ELECTROLYT CO2 29 24 - 32 12/04 [facility] ELECTROLYT Sodium Lvl 141 135 - 145 12/04 [facility] ELECTROLYT Chloride Lvl 102 95 - 109 12/04 [facility] ELECTROLYT Calcium Lvl 9.5 8.5 - 10.5 12/04 [facility] ELECTROLYT Glucose Lvl 95 70 - 99 12/04 [facility] [place] ELECTROLYT BUN 34 7 - 22 12/04 [facility] HEMATOLOGY Monocytes 13.6 2.0 - 12.0 12/04 [facility] HEMATOLOGY Lymphocytes 31.9 20.0 - 12/04 MH 40.0 /2016 [facility] HEMATOLOGY Segs-Bands # 4.2 1.5 - 8.1 12/04 [facility] HEMATOLOGY Basophils 1.4 0.0 - 1.0 12/04 [facility] HEMATOLOGY Eosinophils 4.6 0.0 - 4.0 12/04 [facility] HEMATOLOGY Basophils # 0.1 0.0 - 0.2 12/04 [facility] HEMATOLOGY Eosinophils 0.4 0.0 - 0.5 12/04 MH /2016 [facility] HEMATOLOGY Monocytes # 1.2 0.0 - 0.8 12/04 [facility] HEMATOLOGY Lymphocytes 2.8 1.0 - 5.5 12/04 MH /2016 [facility] HEMATOLOGY Segs 48.5 45.0 - 12/04 MH 75.0 /2017 [facility] HEMATOLOGY PT 13.0 12.0 - 12/04 MH 14.7 [facility] HEMATOLOGY PTT 36.5 22.9 - 12/04 MH 35.8 /2017 [facility] HEMATOLOGY INR 0.96 0.85 - 12/04 MH 1.17 /2016 [facility] HEMATOLOGY MPV 8.8 7.4 - 10.4 12/04 [facility] HEMATOLOGY Platelet 213 133 - 450 12/04 [facility] HEMATOLOGY RDW 13.7 11.5 - 12/04 MH 14.5 [facility] HEMATOLOGY MCHC 33.2 32.0 - 12/04 MH 36.0 /2016 [facility] HEMATOLOGY MCH 31.0 27.0 - 12/04 MH 31.0 [facility] HEMATOLOGY MCV 93.6 80.0 - 12/04 MH 98.0 /2016 [facility] HEMATOLOGY Hct 39.3 36.0 - 12/04 48.0 /2016 [facility] HEMATOLOGY Hgb 13.0 12.0 - 12/04 16.0 /2016 [facility] HEMATOLOGY RBC 4.20 4.20 - 12/04 5.40 /2016 [facility] HEMATOLOGY WBC 8.8 3.7 - 10.4 12/04 [facility] URINE AND UA Leuk Est Trace Negative 12/04 STOOL *ABN* /2016 [facility] (12/04/16 6:38 AM) URINE AND UA Nitrite Negative Negative 12/04 STO[facility] (12/04/16 6:38 AM[facility] Bili Negative Negative 12/04 STOOL *NA* /2016 [facility] (12/04/16 6:38 AM) URINE AND UA Ketones Negative Negative 12/04 STOOL *NA* [facility] (12/04/16 6:38 AM) URINE AND UA Blood Negative Negative 12/04 STOOL (12/04/16 6:38 AM) [facility] AND UA 0.2 0.1 - 1.0 12/04 STOOL Urobilinogen /2016 [facility] URINE AND UA Glucose Negative Negative 12/04 STOOL (12/04/16 6:38 AM) [facility] pH 7.0 5.0 - 8.0 12/04 STOOL [facility] URINE AND UA Protein Trace Negative 12/04 STOOL *ABN* /2016 [facility] (12/04/16 6:38 AM) URINE AND UA Color Yellow Yellow 12/04 STOOL *NA* [facility] (12/04/16 6:38 AM) URINE AND UA Turbidity Clear Clear 12/04 [facility] (12/04/16 6:38 AM) [facility] URINE AND UA Spec Grav 1.010 <=1.030 12/04 STOOL [facility] URINE AND UA Sq Epi None Seen Few 12/04 STOOL (12/04/16 6:38 AM) [facility] URINE AND UA WBC 3-5 /HPF 0 - 5 12/04 STOOL [facility] Pathology Reports No Data Provided for This Section Diagnostic Reports Report Value Date Source Spine lumbar 2 or 3 Spine lumbar 2 or 3 views DX 12/08/2016 [facility] views DX COMPARISON: MRI lumbar spine 12/04/2016 CLINICAL HISTORY: compressio n fx L1/kyphoplasty L1 - fluoro time=[id number]/Dose=41.93mGy/[id number]/OR1; FINDINGS/IMPRESSION: Multiple intraoperative fluo roscopic spot views demonstrates changes related to a kyphoplasty at L1 level. SL: [id number] Spine lumbar wo Spine lumbar wo contrast MRI 12/04/2016 [facility] contrast MRI CLINICAL INDICATION: M54.16 Radiculopathy, lumbar region - As per pt c/o lower back pain x 1 year, recent fall x 1 month, she's going to have lumbar sx today. Yuriy; COMPARISON: Outside institut ion report dated 08/25/2016 is referenced. No images are available for direct comparison. TECHNIQUE: Multiplanar imagi ng of the lumbar spine was performed without IV contrast utilizing T1 and T2 weighted sequences. FINDINGS: Retroperitoneum/Soft tissues: Bilateral renal cy sts. Vertebral bodies: 5 non-rib bearing lumbar type vertebrae are presumed. Acute compression fracture of L1 vertebral body. [id number] retropulsion of especially the superior aspect of the vertebral body. There is greater than 60% loss of vertebra l body height anteriorly. Lower thoracic Cord: The con us medullaris demonstrates normal morphology and terminates at lower aspect of L1 level. T12-L1 level: Mild disc bulg e and facet arthrosis. Compression fracture involving the L1 vertebral body with retropulsion especially superiorly results in moderate central canal stenosis at and just bel ow the disc space. No abnorm al signal is present in the distal cord to suggest cord compression. L1-L2 level: There is mild a nterolisthesis of L2 relative to L1 by a few mms. Diffuse disc bulge and left paracentral disc protrusion is noted. There is extrusion of disc material below the disc space. There is accompanying facet arthrosis. Combination of above results in moderate central canal stenosis. L2-L3 level: Disc desiccatio n, diffuse disc bulge and facet arthrosis are noted. No significant central canal or foraminal stenosis. L3-L4 level: Disc desiccatio n, moderate diffuse disc bulge, ligamentous hypertrophy and facet arthrosis is noted. This results in gshb-rs-[id number] central canal stenosis and kzip-sa-[id number] left foraminal stenosis. Mild right foraminal stenosis. L4-L5 level: Disc desiccatio n, diffuse disc bulge, facet arthrosis and ligamentous hypertrophy is noted. There is moderate to severe central canal stenosis and moderate bilateral foraminal stenosis, mildly worse on the right. L5-S1 level: There is grade 2 L5-S1 anterolisthesis. Extensive facet arthrosis, ligamentous hypertrophy and diffuse disc bulge is noted. There is marked central canal stenosis and severe left foraminal stenosis. Moderate to severe right foraminal esther nosis. IMPRESSION: Acute compression fracture L 1 vertebral body with greater than 60% loss of vertebral body height anteriorly. Retropulsion posteriorly resulting in moderate central canal stenosis. No evidence for cord compression. Grade 2 L5-S1 anterolisthesi s, facet arthrosis and ligamentous hypertrophy results in marked central canal stenosis and left foraminal stenosis. Moderate to severe right foraminal stenosis. Combination of disc disease, facet arthrosis and ligamentous hypertrophy results in moderate to severe central canal stenosis and foraminal stenosis at L4-L5 level. Similar changes are present at L2-L3 and L3-L4 levels to a lesser degree. Grade 1 L1-L2 anterolisthesi s, diffuse disc bulge, left paracentral disc protrusion with extrusion and facet arthrosis is noted at L1-L2 level resulting in moderate central canal stenosis. SL: [id number] Consultation Notes No Data Provided for This Section Discharge Summaries No Data Provided for This Section History and Physicals No Data Provided for This Section Vital Signs Vital Sign Value Date Comments Source Systolic (mm Hg) 155 04/13/2019 [facility] Diastolic (mm Hg) 69 04/13/2019 [facility] Heart Rate 96 04/13/2019 [facility] Respitory Rate 17 04/13/2019 [facility] Temperature Oral (F) 98.0 F 04/13/2019 [facility] Temperature Oral (F) 97.9 F 04/13/2019 [facility] Systolic (mm Hg) 182 04/13/2019 [facility] Diastolic (mm Hg) 81 04/13/2019 [facility] Respitory Rate 16 04/13/2019 [facility] Heart Rate 99 04/13/2019 [facility] Systolic (mm Hg) 154 04/13/2019 [facility] Diastolic (mm Hg) 66 04/13/2019 [facility] Respitory Rate 16 04/13/2019 [facility] Heart Rate 94 04/13/2019 [facility] Temperature Oral (F) 98.3 F 04/13/2019 [facility] BMI Calculated 22.9 04/11/2019 [facility] Weight 53.182 04/11/2019 [facility] Height 152.4 cm 04/11/2019 [facility] BMI Calculated 22.31 04/06/2019 [facility] Height 152.4 cm 04/06/2019 [facility] Weight 51.818 04/06/2019 [facility] Respitory Rate 17 03/15/2019 [facility] Heart Rate 78 03/15/2019 [facility] Systolic (mm Hg) 154 03/15/2019 [facility] Diastolic (mm Hg) 69 03/15/2019 [facility] Temperature Oral (F) 98.6 F 03/15/2019 [facility] Respitory Rate 17 03/15/2019 [facility] Systolic (mm Hg) 143 03/15/2019 [facility] Diastolic (mm Hg) 73 03/15/2019 [facility] Temperature Oral (F) 98.7 F 03/15/2019 [facility] Heart Rate 61 03/15/2019 [facility] Temperature Oral (F) 98.4 F 03/15/2019 [facility] Heart Rate 63 03/15/2019 [facility] Respitory Rate 17 03/15/2019 [facility] Systolic (mm Hg) 136 03/15/2019 [facility] Diastolic (mm Hg) 71 03/15/2019 [facility] BMI Calculated 22.31 03/14/2019 [facility] Weight 51.818 03/14/2019 [facility] Height 152.4 cm 03/04/2019 [facility] Systolic (mm Hg) 123 12/08/2016 [facility] Diastolic (mm Hg) 57 12/08/[address] Systolic (mm Hg) 109 12/08/2016 [facility] Diastolic (mm Hg) 46 12/08/[address] Respitory Rate 12 12/08/2016 [facility] Systolic (mm Hg) 122 12/08/2016 [facility] Diastolic (mm Hg) 51 12/08/[address] Respitory Rate 14 12/08/2016 [facility] Respitory Rate 15 12/08/2016 [facility] Temperature Oral (F) 97.4 F [facility]/04[facility] 49 12/04/2016 [facility] Weight 60.938 12/04/2016 [facility] Height 149.86 cm 12/04/2016 [facility] BMI Calculated 27.13 12/04/2016 [facility] Encounters Location Location Encounter Encounter Reason Attending ADM RI Stat us Source Details Type Number For Provider Date Date Visit Outpatient [id number] JOSH 10/24 [facility] [id number] JOSH [facility] [id number] MIRANDA 11/14 [facility] AL-SHAMY [facility] [id number] John 12/08 12/08 [facility] Mellisa /2016 [facility] [id number] Alvaro 03/14 03/15 [facility] Inpatient [id number] Alvaro 04/07 04/13 [facility] Procedures Procedure Code Date Perfomer Comments Source Kyphoplasty of [id number] 12/08/2016 [facility] fracture of lumbar Spine spine using fluoroscopic guidance Breast lumpectomy [id number] [place] [facility] [id number] benign Ortho and lumpectomy<sup>1</ Spine sup> Bunionectomy [id number] [facility] Cataract surgery [id number] [facility] Excision of [id number] Ortho and melanoma Spine Glaucoma surgery [id number] [facility] Hysterectomy [id number] [facility] Rotator cuff [id number] Ortho and repair Spine,[facility] Assessment and Plan Assessment and Plan Date Source Extracted from:Title: Discharge Summary 04/13/2019 [facility] Author: Alvaro Ramirez MD Date: 04/13/19 Discharge Summary Admission date:04/06/19 Discharge date:04/13/19 Preoperative diagnosis: left hip infecte d hematoma s/p left open abductor repair. Postoperative diagnosis: left hip infect ed hematoma s/p left open abductor repair. Procedure: Consults: Physical Therapy, Internal Medicine, ID, Case riki praneeth Hospital course: Patient was admitted on the above date from clinic for treatment of fever and suspected left hip infected hematoma s/p left open abductor repair. Her left hip was aspirated in clinic a nd sent for culture and cell count and t o start IV antibiotics. She had improvement in fever/chills but slow improvement with labs and recurrent effusion despite second aspiration and then drain placem ent at bedside with hip spica wrap. Angel garza underwent the operative procedure of a left hip I and D. Patient was monitored by the internal medicine service and remained stable throughout the post oper ative course. Dr. Matthew saw her for antibiotic management to go home on oral antibiotics. system administration manager consulted to set up home health RN. Patient's H&H on the first postoperative day was 8.6/26.1. Patient was seen by [facility] therapy twice daily and was ambulating and transferring well with a walker prior to discharge and following hip precautions. Patient was cleared for discharg e on 04/13/19 with RN. Hospital course was uneventful. Diet: regular Meds: please see med reconciliation list Activity: PWB LLE, walker, abduction brace and pillow, preve na vac Follow up: follow up in [address] Ramirez Extracted from:Title: ortho progress note Author: Shilpi Meyer NP Date: 04/13/19 Progress Daily [facility] Completed: Apr, 12:51 by Shilpi Meyer TECHNICAL ACCOUNT MANAGER RM: [phone] - [id number], HY [address] D[facility] 78y (: 1940) F Attending: Alvaro Ramirez MD Service: Orthopedic Reason for Admission: POST PROCEDURAL FEVER AND CHILLS Working DRG: Code status: None Specified=FULL CODE Isolation: No Isolation/Standard Precautions Allergies: Benicar, penicillins, Adhesive Tape SUBJECTIVE Pain well controlled on tramadol. No ove rnight issues. Denies sob/n/v/chills. Reports feeling well and was able to ambulate and work well with PT and follow precautions OBJECTIVE Gen: A and O x4, no acute distress Card:pulses palpable, calves soft nontender, good capillary refill Resp:respirations regular and unlabored Musc: left hip moderate swelling, soft a nd compressible, mild tenderness, good stability, ROM not tested d/t precautions, +EHL, +FHL, +TA Neuro:N/V and sensation intact Skin: HV drains removed and dry dressing applied gauze and tegaderm, prevena vac intact no drainage, switched from hip spica wrap to biking shorts PLAN and TREATMENT -PWB RLE with no active abduction brace when out of bed and abduction pillow when in bed -compression shorts for swelling prevention -continue DVT prophylaxis SCD, SHAILESH -continue pain management -continue dressing, call if increased dr morris output, drain to be removed prior to discharge once output decreases -ice and massage hip -continue IV antibiotics and plan for d/c to oral antibiotic s -ID consult Dr. Matthew for antibiotic management -hospitalist consult for medical management -registered nurse hh case manager consult for discharge plan gilberto and SHERRIE RN coordination with weekly ESR/CRP/CBC/BMP -plan kathleen/c home today, follow up in 7 days DIAGNOSES and PROBLEMS s/p I and D left hip for infected left hip hematoma s/p left abductor repair Ready for Discharge (Yes/No)? today prevena no drainage HV minimal ss drainage op culture no growth office aspiration culture serratia marcescens 24hr Labs 04/13 0409 Hgb 8.3 L Hct 25.6 L Vitals Tmp(F) Pulse BP RR SpO2 FIO2 04/13 11:32 98.0 96 155/69 17 95 --- 04/13 08:38 ---- --- ----- -- 93 2.0L/m 04/13 07:23 97.9 99 182/81 16 93 --- 04/13 03:25 98.3 94 154/66 16 92 --- 04/12 23:17 98.9 94 155/69 16 92 --- 24 Hr Tmax: 98.9F (37.17c) at 04/12 23:1 7 Vital Signs are the last 5 in the past 48 hours. Date Wt(kg) Wt(lb) Ht(cm) Ht(in) Method 04/11 53.18 117.00 152.40 60.00 Est/Sta 04/06 (initial) 51.82 114.00 Estimated 04/06 152.40 60.00 Measured I&O Record In Out Bal 04/13 24hr Tot 360 0 360 04/12 24hr Tot [phone] Medications (36) Active Scheduled Meds (18): 04/07/19 allopurinol 100 mg PO Daily 04/09/19 (Suspended) aspirin (aspirin 8 1 mg tablet, enteric coated) 81 mg PO BID 04/12/19 aspirin (aspirin 325 mg tablet, enteric coated) 325 mg PO BID 04/06/19 atorvastatin 20 mg PO Bedtime 04/07/19 carbidopa-levodopa 1 tab PO QID 04/06/19 cefepime + Sodium Chloride 0.9% IV 100 mL 1 gm IVPB [id number] 200 ml/hr 04/07/19 cloNIDine 0.1 mg PO Q8H 04/07/19 cycloSPORINE ophthalmic (Restasis) 1 drp BOTH EYES Q12H 04/13/19 diphenhydrAMINE (Benadryl) 25 mg PO TID 04/12/19 docusate (docusate sodium 100 mg oral capsule) 100 mg PO BID 04/07/19 famotidine 20 mg PO BID 04/09/19 gabapentin (gabapentin 600 mg oral tablet) 1,200 mg PO BID 04/09/19 hydrALAZINE 25 mg PO QID 04/07/19 losartan 100 mg PO Daily 04/09/19 non-formulary (Trelegy Ellipta ( 100mcg/62.5mcg/25mcg)) 1 puff INHALATION RDaily 04/12/19 polyethylene glycol 3350 (MiraLax) 17 gm PO BID 04/07/19 ubiquinone 300 mg PO Daily 04/11/19 (Suspended) vitamin E 800 IntlUnit PO Daily Unscheduled Meds: None PRN Meds (17): 04/11/19 Al hydroxide/Mg hydroxide/simet hicone (Al hydroxide/Mg hydroxide/simethicone 200 mg-200 mg-25 mg oral tablet, chewable) 30 mL PO QID 04/06/19 acetaminophen (Tylenol) 650 mg PO Q6H 04/06/19 albuterol-ipratropium (DuoNeb inhalation solution) 3 ml NEB PRN 04/11/19 bisacodyl (Dulcolax Laxative) 10 mg [place] Daily 04/06/19 diphenhydrAMINE (Benadryl) 12.5 mg PO Bedtime 04/11/19 diphenhydrAMINE 50 mg PO TID 04/11/19 hydrALAZINE (ANES hydrALAZINE) 10 mg IVP Q20Min 04/08/19 labetalol 10 mg IV Q6H 04/11/19 labetalol (ANES labetalol) 10 mg IVP Q5Min 04/11/19 melatonin 3 mg PO Bedtime 04/11/19 meperidine (ANES meperidine) 12.5 mg IVP Q10Min 04/11/19 metoprolol (ANES metoprolol) 1 mg IVP Q5Min 04/06/19 morphine Sulfate 2 mg IVP Q4H 04/12/19 ondansetron (Zofran ODT) 4 mg PO Q8H 04/06/19 tramadol (tramadol 50 mg oral tablet) 50 mg PO Q6H 04/11/19 tramadol 100 mg PO Q12H 04/11/19 trazodone 25 mg PO Bedtime One Time Meds (1): 04/12/19 (Completed) sodium polystyrene sulfonate (Kayexala te) 15 gm PO ONCE Continuous Infusions: None Extracted from:Title: Hip Pain Admission H&P * Author: Alvaro Ramirez MD Date: 04/07/19 Impression and Plan Left hip possible infected hematoma, left hip pain, fever Plan for at least 24hrs of IV antibiotic s and possible d/c home on oral antibiotics vs left hip I and D of hematoma pending response to antibiotics and aspiration cell count/culture/labs pain management pt prefers tylenol and tramadol as needed an d icing left hip SHAILESH hose and SCD for DVT prevention NPO until aspiration cell count resulted to determine if need to add on to OR today, called outpatient lab to fax to us when resulted since not populating into system FFTDWB LLE and remain in brace when out of bed and abduction pillow when in bed no active abduction or ER of hip ID consult Dr. Matthew for infection w orkup and antibiotic management, notified of consult Hospitalist team consult for medical management recommendati ons appreciated Patient and family explained treatment options and plan and questions answered Extracted from:Title: Clinical Document 03/15/2019 [facility] Author: Michael Albright MD Date: 03/15/19 Ortho Progress Note - Adult Reconstruction Dr. Ramirez Surgical Procedures: 03/14/19 11:59 LEFT HIP ABDUCTOR TENDON REPAIR [id number] Primary Surgeon : Alvaro Ramirez MD (Service: ORT) SUBJECTIVE: No events overnight, no complaints, pain control led OBJECTIVE: Vitals Tmp(F) Pulse BP RR SpO2 FIO2 03/15 07:15 98.6 78 154/69 17 95 --- 03/15 06:00 ---- --- ----- -- 97 2.0L/m 03/15 04:11 98.7 61 143/73 17 96 2.0L/m 03/14 23:52 98.4 63 136/71 17 94 2.0L/m 03/14 20:35 ---- --- ----- -- 95 2.0L/m 24 Hr Tmax: 98.7F (37.06c) at 03/15 04:1 1 Vital Signs are the last 5 in the past 48 hours. 24hr Labs 03/15 0349 Glucose Lvl 117 H BUN 36 H Creatinine Lvl 1.71 H Sodium Lvl 142 Potassium Lvl 4.7 Chloride Lvl 107 CO2 27 AGAP 12.7 Calcium Lvl 8.8 eGFR 28 Hgb 9.2 L Hct 27.4 L Physical Exam: General: Afebrile, Vital Signs Stable, N o Apparent Distress, Alert and Oriented x 3 Lower Extremitiy: Surgical Dressing Soni n/Dry/Intact, No erythema, Hip Clinically Reduced. Abduction pillow in room. abduction brace in place Compartments Soft/Compressible, Sensatio n Intact to Light Touch over the SPN/DPN/TN Dermatomes, Palpable DP/PT Pulses with Brisk Capillary Refill, Firing EHL/FHL/TA/GSC Muscle Groups, Negative Maria T's Sign ASSESSMENT/PLAN: 1 day(s) S/P L Hip abductor tendon recon struction with stable post-operative course thus far -Acute blood loss anemia, no transfusion required at this ti me -VTE Prophylaxis: SHAILESH hose, SCDs, Aspirin -Physical Therapy: Touch down weight ina ring, No active abduction. Brace at all times when up and about. abduction pillow when in bed. -Disposition: Home once cleared by Physical Therapy and Hosp italist Extracted from:Title: Consult Note Author: Jono Jiménez DO Date: 03/09/19 Patient is a 78 year old with PMH GERD, HTN, gout, HLD, glaucoma, melanoma and COPD on O2 at night who presented to preop clinic prior to L hip abductor tendon repair with Dr. Ramirez. 1.Preoperative testing(Z01.818) Patient is followed by Dr. Fisher with car diology. Patient has an appointment for TTE today and cardiac clearance will be given by Dr. Fisher. EKG sinus bradycardia with RBBB. Patient instructed to have cardiac clearance faxed prior to surgery. 2.Limited abduction of left hip(R29.898) plan for L hip abductor tendon repair. management per primar y 3.COPD (chronic obstructive pulmonary disease)(J44.9) no evidence of exacerbation. duonebs prn . 2L O2 at night while sleeping. continue trelegy ellipta. 4.Acid reflux(K21.9) ranitidine 5.HTN (hypertension)(I10) losartan / clonidine / hydralazine. 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 outpatient optho fu 10.History of melanoma(Z85.820) s/p excision. outpatient derm f/u 11.Gout(M10.9) continue allopurinol 12.Parkinsonism(G20) continue carbidopa/levodopa/entacapone Addendum by Jono Jiménez DO on 03/09/2019 16:34 CDT CAREN - BUN:Cr > 20:1 suggestive of preren al etiology. Patient to increase PO intake and will need repeat BMP prior to surgery. leukocytosis - no s/s infection. monitor off abx anemia of chronic disease - transfuse PRN <7 Addendum by Jono Jiménez DO on 03/09/2019 16:36 CDT Hypoalbuminemia - increase PO protein intake. Plan of Care No Data Provided for This Section Social History Social History Date Source Social History TypeResponse 03/04/2019 [facility] Exercise 1 Alcohol Past Smoking Status Former smoker; Type: Cigarettes; Ready t o change: No; Concerns about tobacco use in household: No; Exposure to Tobacco Smoke None; Cigarette Smoking Last 365 Days No; Reg Smoking Cessation Counseling No entered on: 04/11/19 1mo exercise, SOB w/ exertion Social History TypeResponse 12/04/2016 [facility] Alcohol Past Smoking Status Former smoker; Type: Cigarettes; Ready t o change: No; Concerns about tobacco use in household: No; Exposure to Tobacco Smoke None; Cigarette Smoking Last 365 Days No; Reg Smoking Cessation Counseling No Family History No Data Provided for This Section Advance Directives No Data Provided for This Section Functional Status No Data Provided for This Section
--- OUTSIDE RECORDS SUMMARY | 2020-01-23 21:42 | XMS REPORT ---
:1940 Author Organization [facility] t Address [address] [place] [address] Care Team Providers Name Role Phone Priti Neal MD Primary Care Physician Rosa Fisher MD Attending Clinician Av Puente MD Attending Clinician Evangelista Ramirez Attending Clinician Ronnell Pak Attending Clinician Evangelista Ramirez Admitting Clinician Payers Payer Name Policy Type Policy Number Effective Date Expiration Date S jono AETNA xxxxxxxx 2013 [place] MEDICAREAETNA 00:00:00 [employer] MEDICARE HMO/PPO [facility] 4-PresentHMO Problems Condition Condition Condition Status Onset Resolution Last Treating Co mments Source Name Details Category Date Date Treatment Clinician Date HLD HLD Disease Active [facility] (hyperlipi (hyperlipi 8-15 Me thodi demia) demia) 00:00: st 00 Essential Essential Disease Active [facility] st[facility] hypertensi hypertensi 8-15 Me thodi on on 00:00: st 00 Carotid Carotid Disease Active [facility] artery artery 8-15 [facility] disease disease 00:00: st 00 Aortic Aortic Disease Active [facility] valve valve 8-15 [facility] stenosis stenosis 00:00: st 00 Abnormal Abnormal Disease Active [place] EKG EKG 8-15 [facility] 00:00: st 00 Dizziness Dizziness Disease Active [facility] 8-15 [facility] 00:00: st 00 Bilateral Bilateral Disease Active Rommel hdez carotid carotid 8-15 [facility] bruits bruits 00:00: st 00 Chest pain Chest pain Disease Active [place] 8-15 [facility] 00:00: st 00 AVD AVD Disease Active [place] (aortic (aortic 815 [facility] valve valve 00:00: st disease) disease) 00 Allergies, Adverse Reactions, Alerts Allergy Allergy Status Severity Reaction(s) Onset Inactive Treating Comm ents Source Name Type Date Date Clinician [place] [facility] Active [place] [facility] 09[facility]30 [place] [facility] [place] [facility] 09-30 [place] 00:[facility] [place] [facility] 09[facility]30 [place] 00:00: [facility] [place] DA Active [place] [facility] 02-12 [place] 00:00: [facility]ope [facility] [place] [facility] 02[facility]12 [place] 00:00: [facility]ope [facility] [place] Propensi Active [place] an ty to [facility] adverse st reaction s to drug Penicill Propensi Active [place] ins ty to [facility] adverse st reaction s to drug Social History Social Habit Start Date Stop Date Quantity Comments Source Sex Assigned At Rommel Hernandez Medications Ordered Filled Start Stop Current Ordering Indication Dosage Frequency Signature Comments Components Source Medication Medication Date Date Medication? Clinician (SIG) Name Name losartan Yes TAKE 1 [place] (COZAAR) 3-26 TABLET BY [facility] 100 MG 00:00: MOUTH st tablet 00 EVERY DAY losartan 2018-09- No TAKE 1 [place] (COZAAR) 2-30 03-26 TABLET BY [facility] 100 MG 00:00: 00:[address] tablet 00 :00 EVERY DAY losartan 2018-09- No TAKE 1 [place] (COZAAR) 0-01 12-30 TABLET BY [facility] di 100 MG 00:00: 00:[address] tablet 00 :00 EVERY DAY losartan 2018- No TAKE 1 [place] (COZAAR) 08 10-01 TABLET BY [facility] di 100 MG 00:00: 00:[address] tablet 00 :00 EVERY DAY calcium 2018- Yes 1{tbl} Take 1 [place] carbonate 03-08 tablet by [facility] (CALCIUM 15:58: mouth. st 600) 600 mg 46 calcium (1,500 mg) tablet cycloSPORIN Yes 1[drp] Apply 1 [place] E 03-08 drop to [facility] (RESTASIS) 15:58: eye. st 0.05 % 46 ophthalmic emulsion cranberry Yes Take by [place] xt/multivit 03-08 mouth. [facility] i neal 15:58: st (CRANBERRY 46 EXTRACT-MUL TIVITAMIN ORAL) acetaminoph Yes Take by Rommel hdez en (TYLENOL 03-08 mouth. [facility] i ARTHRITIS 15:58: st ORAL) 46 GLUCOSAM Yes glucosamin Rommel hdez SUL 03-08 e-chondroi [facility] NA/CHONDR 15:54: tn sulf.Na st (GLUCOSAMIN 23 E-CHONDROIT N SULF.NA ORAL) flaxseed Yes flaxseed [place] on 1,000 mg 03-08 [facility] capsule 15:54: st 23 aspirin Yes 81mg QD Take 81 mg [place] (ECOTRIN) 03-08 by mouth [facility] 81 MG 15:54: daily. st enteric 23 coated tablet ranitidine Yes 150mg Q.5D Take 150 [place] (ZANTAC) 6-27 mg by [facility] 150 MG 00:00: mouth 2 st tablet 00 (two) times a day. losartan 2019- No TAKE 1 [place] (COZAAR) 6-04 07-06 TABLET BY [facility] di 100 MG 00:00: 00:[address] tablet 00 :00 EVERY DAY traMADol 2018- Yes TAKE 2 [place] (ULTRAM) 50 6-03 TABLET(S) Met hodi mg tablet 00:00: EVERY 12 st 00 HOURS BY ORAL ROUTE NEEDED FOR 30 DAYS. hydrALAZINE 2018- Yes 20mg Q.5D Take 20 mg [place] (APRESOLINE 5-13 by mouth 2 Me thodi ) 10 MG 00:00: (two) st tablet 00 times a day. losartan 2018- No TAKE 1 [place] (COZAAR) 5-13 06-04 TABLET BY [facility] di 100 MG 00:00: 00:[address] tablet 00 :00 EVERY DAY TRELEGY Yes INHALE 1 [place] ELLIPTA 3-30 PUFF BY [facility] 100-62.5-25 00:00: MOUTH st mcg blister 00 EVERY DAY with device amLODIPine 2019- No 5mg Q.5D Take 1 [place] (NORVASC) 5 8-15 07-02 tablet (5 Me thodi mg tablet 00:00: 00:00 mg total) st 00 :00 by mouth 2 (two) times a day. clonIDINE Yes TAKE 2 [place] (CATAPRES) 8-09 TABLETS BY Met hodi 0.1 MG 00:00: MOUTH IN st tablet 00 THE MORNING AND EVENING AND 1 TABLET AT NOON carbidopa-l Yes TAKE 1 [place] evodopa - TABLET BY [facility] (SINEMET) 00:00: ORAL ROUTE st 25-100 mg 00 4 TIMES per tablet EVERY DAY FOR RESTLESS LEG SYNDROME BROVANA 15 2019- No USE 1 VIAL [place] mcg/2 mL 04-03 IN [facility] solution 00:00: 00:[address] for 00 :00 EVERY 12 nebulizatio HOURS n allopurinol Yes 100mg QD Take 100 [place] (ZYLOPRIM) 7-14 mg by [facility] 100 MG 00:00: mouth once st tablet 00 daily. atorvastati Yes TAKE 1 [place] (LIPITOR) 7-12 TABLET BY Met hodi 20 MG 00:00: MOUTH st tablet 00 EVERY DAY AFTER EVENING MEAL azithromyci Yes 250mg QD Take 250 [place] 7-12 mg by [facility] (ZITHROMAX) 00:00: mouth once st 250 MG 00 daily. tablet budesonide 2018- No USE 1 VIAL [place] (PULMICORT) 03-13 IN [facility] 0.5 mg/2 mL 00:00: 00:[address] nebulizer 00 :00 EVERY 12 solution HOURS gabapentin Yes 600mg Q.25D Take 600 [place] (NEURONTIN) 6-07 mg by [facility] 600 mg 00:00: mouth 4 st tablet 00 (four) times a day. Vital Signs Vital Name Observation Time Observation Value Comments Source Body height 2019-03-08 15:47:00 154.9 cm Khadar Hernandez Body weight 2019-03-08 15:47:00 51.71 kg Khadar Hernandez BMI 2019-03-08 15:47:00 21.54 kg/m2 Khadar Hernandez Procedures Procedure Date / Time Performed Performing Clinician Sourc e TTE COMPLETE, WO 2019-03-09 22:54:29 Enmanuel Fisher Met hodist SANDRITA, W DOPPLER ([id number]) ECG 12-LEAD 2019-03-08 15:00:09 Enmanuel Fisher Meth odist Plan of Care Planned Activity Planned Date Details Comments Source Future Scheduled 2020-04-07 INFLUENZA VACCINE [place] [facility] 00:00:00 [code = INFLUENZA VACCINE] Future Scheduled 2004 65+ PNEUMOCOCCAL [facility] Test 00:00:00 VACCINE (1 of 2 - PCV13) [code = 65+ PNEUMOCOCCAL VACCINE (1 of 2 - PCV13)] Future Scheduled 1989 SHINGLES [facility]INES (#[facility] 00:00:00 [code = SHINGLES VACCINES (#1)] Encounters Start End Encounter Admission Attending Care Care Encounter Source Date/Time Date/Time Type Type Clinicians Facility Department ID 2019-04-07 Inpatient U [facility] [id number] 07:46:00 [facility] 2019-04-06 Inpatient U [facility] [id number] [facility] 15:01:03 2019-04-07 2019-04-13 Outpatient Ashley [facility] [id number] 07:46:00 14:05:00 Alvaro 12 [facility] 2019-03-14 2019-03-15 Outpatient Ashley [facility] [id number] 07:06:00 15:13:00 Alvaro 02 [facility] 2019-03-14 2019-03-14 Outpatient [facility] [id number] 07:06:00 07:06:00 [facility] 2016-12-08 2016-12-08 Outpatient Mellisa [facility] [id number] 06:04:00 11:00:00 John Gordy Reynaga [facility] Results Test Description Test Time Test Comments Results Result Comments Source ECG 12 lead 2019-03-08 18:17:57 Test Item Value Reference Range Interpretation Comme nts Ventricular rate (test code = 253) 45 Atrial rate (test code = 255) 45 IL interval (test code = 266) 150 QRSD interval (test code = 260) 136 QT interval (test code = 264) 446 QTC interval (test code = 265) 385 P axis 1 (test code = 267) 77 QRS axis 1 (test code = 268) 10 T wave axis (test code = 270) 65 EKG impression (test code = 273) Sinus bradycardia with premature a trial complexes-Right bundle branch block-Abnormal ECG-In automated comparison with ECG of 21-APR-2017 11:55,-Right bundle branch block is now present-Minimal criteria for Anterior infarct are no longer present- Khadar Hernandez
[2020-01-23 22:24] VITALS: BMI 22.8
[2020-01-23 23:02] LABS: Absolute Lymphocytes (CBC) 2.3 K/uL (0.7-4.9); Basophils % 1.2 % (0-1.3); Hematocrit 31.1 % (36.0-45.0); Lymphocytes % 19.5 % (15.3-44.8); MPV 8.6 fL (7.6-11.3); RBC Red Blood Cell Count 3.34 M/uL (3.86-4.86)
[2020-01-23 23:22] LABS: Albumin 3.2 g/dL (3.4-5.0); Bilirubin Total 0.2 mg/dL (0.2-1.0); Magnesium 2.3 mg/dL (1.8-2.4); Potassium 3.9 mmol/L (3.5-5.1); Protein, Total 7.4 g/dL (6.4-8.2)
[2020-01-23 23:28] LABS: Thyroid Stimulating Hormone 5.16 uIU/mL (0.360-3.740)
[2020-01-23] MEDS ORDERED: DIPHENHYDRAMINE 25 MG PO PRN (23:30)
[2020-01-23 23:58] LABS: Urine Appearance CLEAR; Urine Bilirubin NEGATIVE (NEG); Urine Blood NEGATIVE (NEG); Urine Color YELLOW; Urine Glucose NEGATIVE (NEG); Urine Protein 2+ (NEG); Urine Urobilinogen 0.2 mg/dL (0.2-1.0)
[2020-01-24] MEDS: NA CHLORIDE 0.9% 1,000 ML IV SCH ×2 (00:07→13:05)
[2020-01-24 00:35] LABS: Urine Bacteria <20 /HPF (<20); Urine Culture Reflex Order NOT NEEDED; Urine RBC <5 /HPF (NONE SEEN)
[2020-01-24] MEDS ORDERED: LORAZEPAM 0.5 MG TABLET PO PRN (06:09)
[2020-01-24] MEDS: ASPIRIN EC 81 MG TAB PO SCH (08:30)
[2020-01-24] MEDS: HEPARIN 5000 UNIT/ML 1 ML VIAL SQ SCH ×2 (08:31→20:22)
[2020-01-24] MEDS ORDERED: POTASSIUM CL SA 10 MEQ TAB PO ONE (09:00)
[2020-01-24] MEDS ORDERED: HYDRALAZINE HCL 25 MG PO SCH (09:00)
[2020-01-24] MEDS ORDERED: IRON PO SCH (09:00)
[2020-01-24] MEDS ORDERED: HEPARIN 5000 UNIT/ML 1 ML VIAL SQ SCH (09:00)
[2020-01-24] MEDS ORDERED: GABAPENTIN 1200 MG PO SCH (09:00)
[2020-01-24] MEDS ORDERED: ALLOPURINOL 100 MG PO SCH (09:00)
[2020-01-24] MEDS ORDERED: LEVODOPA PO SCH ×2 (09:00→21:00)
[2020-01-24] MEDS ORDERED: CARBIDOPA PO SCH ×2 (09:00→21:00)
[2020-01-24] MEDS ORDERED: AZITHROMYCIN 250 MG PO SCH (09:00)
[2020-01-24] MEDS ORDERED: CLONIDINE HCL 0.3 MG PO SCH (09:00)
--- NOTE | 2020-01-24 09:33 | RAD REPORT ---
EXAM DESCRIPTION: Lilliana Pa And Lat (2 Views)01/24/2020 9:04 am CLINICAL HISTORY: COPD COMPARISON: November 2019 FINDINGS: Right middle lobe bronchiectasis/scarring without significant change. Right pleural thickening. Lungs are hyperaerated. The left lung appears clear of acute infiltrate. The heart is mildly enlarged. Aorta is tortuous
--- NOTE | 2020-01-24 10:15 | HP ---
Date of Admission: 01/23/2020 Chief Complaint: Weakness of arm and leg. History Of Present Illness: This is an 79-year-old very pleasant female patient who contacted me fazal valderrama and informed me that she has been feeling like having weakness of her arm and leg for last few to several days. When this first started last week, she started to have some headache, which lasted for a couple of days and then headache went away. Her daughter has noted some slurred speech from time to time, but has not noted any such problem. When I talked to her on the phone, I did not no anju any slurred speech either. She was advised to come to office for me to examine her as I was con cerned about possibility of stroke, as patient was concerned about it also and she came in late mylesniki lebron to office where I examined her and detected that she had weakness of left upper and left lower ext remity and patient was suggested to get admitted to hospital. Patient had extreme difficulty walking and she was high risk from fall and injury due to this weakness. She came into office with her walk ing cane, but she was assisted in a wheelchair to avoid any fall or injury. Arrangements were made f or her to be admitted to hospital. Allergies: PENICILLIN CAUSING FACE SWELLING, OLMESARTAN CAUSING HYPOTENSION, ALTHOUGH RECENTLY WE DI D PRESCRIBE OLMESARTAN TO HER AND SHE WAS ABLE TO TOLERATE THE SMALLER DOSE 5 MG TWICE A DAY WITHOUT ANY HIGH POTENTIAL PROBLEM, BUT IT WAS DISCONTINUED BECAUSE HER CREATININE WENT UP WHILE SHE WAS TAKI NG OLMESARTAN. Medications: List reviewed. Review of Systems: FINISH PRODUCTION MANAGER: As mentioned above. Respiratory: Has chronic cough and shortness of breath with activity. Car diovascular: Has leg edema. Dermatology: Has some rash and itching in the lower leg, ankle area lately. All other systems reviewed and negative. Past Medical History: Significant for restless legs syndrome, impaired fasting glucose, hypertension , mixed hyperlipidemia, COPD, atypical mycobacterium infection of lung, gastroesophageal reflux disea se, diverticulosis, chronic kidney disease stage 3, osteoarthritis of multiple sites, gout, melanoma of face, anemia due to chronic kidney disease, osteopenia. Past Surgical History: Cataract surgery, glaucoma surgery, hysterectomy, shoulder surgery, knee surg pat, and foot surgery. Family History: Father , had lung cancer. Mother , had congestive heart failure and kidney disorder. Brother , had cirrhosis of liver. Social History: Prior history of tobacco use; alcohol use. Negative. Physical Examination: Vital Signs: Height 5 feet, weight 117 pounds, temperature 97.8, pulse 68, respiratory rate 18, bloo d pressure 212/84, Oxygen saturation 91% HEENT: Head atraumatic, normocephalic. Conjunctivae nonerythematous. Sclerae white. Mouth, no thr ush or edema noted. Ears/Nose, no mass, lesion, discharge noted. Neck: Supple. No JVD, lymph nodes, bruit, thyromegaly noted. Lungs: Presence of crackles noted in lower 1/3rd of both lungs. This is a chronic finding. No whee zing. Not using any accessory muscles of respiration Heart: Normal. Presence of systolic murmur. No gallop. Abdomen: Soft, bowel sounds normal. No guarding, rigidity, tenderness, mass, hepatosplenomegaly, dis tention, or bruit noted. Extremities: Bilateral grade 1 pedal edema. Skin: No rash, ulcer, cellulitis. Lymphatics: No lymph node enlargement in neck, supraclavicular, infraclavicular region. FINISH PRODUCTION MANAGER: Patient has weakness of left upper and left lower extremity with power 4/5 in both upper and lo wer extremity on the left side. No other focal neurological deficits noted.. Chest: Unremarkable. External Genitalia: Deferred. Rectal: Deferred. Laboratory Data: CAT scan of the head without contrast done after she was admitted to the hospital c laya back negative for any acute intracranial changes. White count 12, hemoglobin 10.1, platelets 299 . Sodium 143, potassium 3.9, chloride 104, bicarb 32, BUN 49, creatinine 2.58, glucose 125. Liver f unction tests unremarkable. TSH 5.162, calcium 11. Urinalysis negative. Impression: 1.Stroke. 2.Hypertension. 3.Mixed hyperlipidemia. 4.Chronic obstructive pulmonary disease. 5.Atypical mycobacterium infection of lung. 6.Gastroesophageal reflux disease. 7.Diverticulosis. 8.Volume depletion. 9.Impaired fasting glucose. 10.Restless legs syndrome. 11.Osteoarthritis, multiple sites. 12.Anemia due to chronic kidney disease. 13.Admit the patient to hospital for further evaluation management of this problem. Patient is appr opriate for inpatient and is expected to spend 2 midnights in hospital. We will go ahead and consult neurologist Dr. Brito, consult Inpatient Rehab tomorrow. We will get MRI of brain without contra st. Patient has claustrophobia and says that she will need some medications prior to MRI. She has g one through MRI in the past with use of some medication as she reports. We will get carotid Doppler, echocardiogram, EKG was ordered, and home medications will be continued per order. We will consult Physical Therapy and Speech Therapy. DVT prophylaxis with heparin will be given and aspirin 81 mg da cheryl will be started. Details and planned treatment discussed with her. MELITA/MODL Voice ID: [id number]
--- NOTE | 2020-01-24 10:17 | RAD REPORT ---
EXAM DESCRIPTION: USCarotid Artery Bilateral01/24/2020 10:06 am CLINICAL HISTORY: cva COMPARISON: None FINDINGS: The velocity of the right internal carotid artery equals 91 cm/sec. The right ICA/CCA rati o 1.4 The velocity of the left internal carotid artery equals 102 cm/sec. The left ICA/CCA ratio 1.5 Mild to moderate calcified plaque is present within the right common and right internal carotid arter ies. Mild plaque is present within the left common and left internal carotid arteries The vertebral arteries demonstrate antegrade flow IMPRESSION: Mild to moderate plaque within the carotid arteries without evidence of a hemodynamicall y significant stenosis NASCET criteria used. Mild 0-49% stenosis Moderate 50-69% stenosis Severe 70-99% stenosis
--- NOTE | 2020-01-24 10:33 | RAD REPORT ---
EXAM DESCRIPTION: MRI - Brain Wo Cont - 01/24/2020 9:28 am CLINICAL HISTORY: cva COMPARISON: January 23, 2020 cat scan TECHNIQUE: Axial, sagittal, and coronal magnetic images of the brain were obtained. Contrast was not requested FINDINGS: Moderate signal within periventricular, deep and subcortical white matter probably ischemi c changes secondary to small vessel disease. Diffusion-weighted/ADC mapping does not reveal evidence of acute infarction. The ventricles are normal caliber. An extra-axial fluid collection is not present Fluid within the sinuses/mastoids is not noted IMPRESSION: No acute abnormality is displayed
--- NOTE | 2020-01-24 10:56 | RAD REPORT ---
EXAM DESCRIPTION: CT - Head Brain Wo Cont - 01/23/2020 11:32 pm CLINICAL HISTORY: The patient is 79 years old and is Female; right-sided weakness headache 7 days TECHNIQUE: Axial computed tomography images of the head/brain without intravenous contrast. Sagitt al and coronal reformatted images were created and reviewed. This CT exam was performed using one o r more of the following dose reduction techniques: automated exposure control, adjustment of the mA and/or kV according to patient size, and/or use of iterative reconstruction technique. COMPARISON: No relevant prior studies available. FINDINGS: BRAIN: There is diffuse cerebral atrophy present, consistent with this patient's age. There is patchy hypoattenuation of the deep white matter which is non-specific, but most likely owing to chronic small vessel ischemic change in a patient of this age group. Evidence of prior bilatera l basal ganglia lacunar infarcts are noted. No intracranial hemorrhage, mass effect, or midline antonette ft is seen. There are no extra-axial fluid collections. VENTRICLES: Unremarkable. No ventriculomegaly. BONES/JOINTS: No acute fracture. SOFT TISSUES: Unremarkable. SINUSES: Unremarkable as visualized. No acute sinusitis. MASTOID AIR CELLS: Unremarkable as visualized. No mastoid effusion. ORBITS: Unremarkable as visualized. IMPRESSION: Age-related atrophy and chronic white matter ischemic changes, with no evidence of an acute intrac ranial abnormality. Electronically signed by: Ruth Ortiz MD 01/23/2020 11:38 PM CDT Due to temporary technical issues with the PACS/Fluency reporting system, reports are being signed by the in house radiologist as a courtesy to ensure prompt reporting. The interpreting radiologist is f ully responsible for the content of the report.
[2020-01-24] MEDS ORDERED: LORAZEPAM 0.5 MG TABLET PO ONE (11:19)
[2020-01-24] MEDS ORDERED: CLONIDINE HCL PO SCH (12:00)
--- NOTE | 2020-01-24 19:11 | RAD REPORT ---
EXAM DESCRIPTION: MRI - C Spine Wo Cont- 01/24/2020 6:52 pm CLINICAL HISTORY: arm and leg weakness Radiculopathy. COMPARISON: MRICERVICAL SPINE W O CONTR dated 03/24/2014 FINDINGS: Cervical vertebral bodies are normal in height and alignment. No suspicious marrow edema or marrow replacing process. No fracture or traumatic subluxation. The craniocervical junction is normal. C2-3 level: Small 3 mm central disc herniation is present without significant canal or foraminal sten osis. C3-4 level: Moderate to large posterior osteophyte/ disc complex is present greater along the right. Attenuation of the anterior subarachnoid space with cord flattening is present. Moderate right-sided exit foraminal stenosis. C4-5 level: Degenerative disc disease is present with moderate posterior osteophyte/ disc complex. Th ere is attenuation of the anterior subarachnoid space with flattening the anterior cord. Uncovertebra l facet spurring narrows both exit foramina. C5-6 level: Right paracentral disc protrusion is present with right-sided uncovertebral facet spurrin g. There is attenuation of the anterior subarachnoid space with flattening of the right maria m cord. Ri ght-sided exit foraminal stenosis is present. C6-7 level: 4 mm central disc protrusion is present attenuating the anterior subarachnoid space conta cting and flattening the anterior cord. Uncovertebral facet spurring is present bilaterally mildly na rrowing both exit foramina. C7-T1 level: No significant findings. Cervical cord is normal in size and signal. IMPRESSION: Moderate multilevel midcervical degenerative change is present.
--- NOTE | 2020-01-24 19:30 | RAD REPORT ---
EXAM DESCRIPTION: MRI - Lumbar Spine Wo Con- 01/24/2020 6:54 pm CLINICAL HISTORY: arm and leg weakness Pain and radiculopathy. COMPARISON: Lumbar Spine Wo Con dated 08/25/2016 FINDINGS: Acute or subacute compression fracture affects the L1 vertebral body. Loss of vertebral bobby dy height is estimated at 75-80%. Retropulsion is present resulting in mild central canal narrowing. In addition, 7 mm degenerative retrolisthesis is present of L1 on 2. Moderate central canal stenosis is present with bilateral lateral recess narrowing at the L1-2 level. Mild central compression deformity is also noted in L2 with estimated loss of vertebral body height a t 10%. Edema signal within the vertebral body likely indicates acute to subacute time frame. L2-3 level: Minimal posterior disc bulge with mild facet and ligamentum flavum hypertrophy. L3-4 level: Mild posterior disc bulge is seen with sape-sy-nnxwjeza facet and ligament flavum hypertr ophy. L4-5 level: Moderate posterior disc bulge with moderate facet and ligamentum flavum hypertrophy. Mode rate central canal narrowing is present with attenuation of both lateral recesses. Moderate right-roney ed exit foraminal narrowing. L5-S1 level: 12 mm anterolisthesis is present with significant disc thinning. Posterior disc bulge wi th no significant facet and ligament flavum hypertrophy is present resulting significant central roly l stenosis. The conus medullaris terminates at a normal level. No thickening of the cauda equina or clumping of n erve roots seen. IMPRESSION: Suspected osteoporotic acute to subacute compression fractures involving L1 and L2 as de tailed. L1 fracture is more significant in terms of height loss. Posterior retropulsion is present re sulting in moderate central canal narrowing. 12 mm anterolisthesis L5 on S1 with severe central canal stenosis.
[2020-01-24] MEDS ORDERED: ACETAMINOPHEN 650 MG PO SCH (21:00)
[2020-01-24] MEDS ORDERED: ATORVASTATIN CALCIUM 20 MG PO SCH (21:00)
--- NOTE | 2020-01-24 22:45 | CON ---
Reason For Consultation: Consultation was called by Dr. Martinez because of weakness and possible stroke . History Of Present Illness: Ms. Olsen is an 79-year-old right-handed patient who is admit mia to the hospital with reported weakness, which appears to be diffuse. Bilateral left and right le gs and arms are involved. There is also report of slurred speech. I interviewed the patient. The mandy adorno's was at bedside and he felt she actually had no slurred speech and her speech seemed just as he had known for many, many years. At any event, regarding her weakness, she has had off and on but slightly progressive weakness over a few weeks or perhaps longer. She has used a cane for am bulation due to the leg weakness and some incoordination. Review of the chart did show from March 24, 2014, there was a cervical spine MRI which showed advanced degenerative disk disease at multiple lev els and spinal stenosis at C3-4 and C4-5. She has not had any surgical decompression. Since [facility], the patient felt that she again did not have slurred speech, but both the patient and her h usband note she has some problems with recall, speed of processing, and memory issues, which appear m ore chronic. It should be noted that a brain MRI was done earlier, which showed no acute ischemic or hemorrhagic event, but there was moderate small-vessel ischemic disease, which may be related to pos sible vascular dementia, at least temporarily. She also has chronic renal insufficiency, but not on dialysis. Carotid Dopplers were done and there was no hemodynamically significant stenosis identifie d. Past Medical History: Restless legs syndrome, hypertension, dyslipidemia, chronic obstructive pulmon yarelis disease, GE reflux, osteoarthritis, gout, osteopenia. Past Surgical History: Cataract surgery, glaucoma surgery, hysterectomy, shoulder surgery, knee surg pat, and foot surgery. Allergies: PENICILLIN, OLMESARTAN. Family History: Lung cancer in father. Congestive heart failure in mother. Brother with cirrhosis of the liver. Social History: No alcohol, tobacco, or IV drug use. Lives at home with . Review of Systems: She does have some mild shortness of breath, some difficulty with chronic weakness, and mild leg sarah a. Negative on a 10-point systems' review. Physical Examination: Vital Signs: Blood pressure 140 to 188 over 66 to 70, pulse 52-58, respiratory rate 16-18, temperatu re 97.7, oxygen saturation 95% to 99% on 2 L nasal cannula, weight 170 pounds, height 5 feet. General: Ms. Olsen is resting in bed. is at the bedside. She is in no acute distress. HEENT: She appears normocephalic, atraumatic. Her sclerae are anicteric. Oropharynx is moist and p ink. Neck: Supple. Chest: Clear. Heart: Regular. Extremities: Show no significant edema, cyanosis, or clubbing. Neurological: She is alert and oriented to situation, place, and person. She follows commands appro priately. She is a little sleepy but is easily aroused, attentive and follows instructions as indica mia. She has no focal cranial nerve deficits. Motor examination shows some diffuse weakness, at letty st 4+/5 strength proximally and distally in the left and right upper extremities. She does have some mild perhaps left more than right lower extremity weakness, again at least around 4/5. She can lift both legs off the bed. She is very strong distally at 5/5 with the foot plantar and dorsiflexion bi laterally. Approximately around 4/5 hip flexion, knee flexion/extension. Sensory: Stocking-glove l oss to light touch, temperature in the arms and legs. Reflexes are depressed in the upper and lower extremities at 1+ bilaterally, 0 at the right patella (she had a knee replacement), 1 at the left pat concha, and 0 at the heels. Coordination is slow but intact in the upper and lower extremities. Gait, she will be ambulated with the physical therapist, and she was evaluated earlier today and did use a rollator. She ambulated 120 feet twice with fair tolerance. Minimum assistance was required. Assessment: Ms. Olsen is an 79-year-old patient with possible debility. However, she has a history at least for 6 years of significant multilevel cervical cord compression, which is a possible contri buting factor to her gait instability and high fall risk. She also, on MRI of brain, has moderate sm all-vessel ischemic disease, although she probably has a mild cognitive impairment in terms of her co gnitive functioning. Her chronic renal insufficiency is also likely contributing factor to cognitive dysfunction. Carotids showed no evidence of hemodynamically significant stenosis. Plan: 1.She will likely benefit from admission to the inpatient rehabilitation unit for more aggressive ph ysical, occupational, and speech therapy; to use a walker at all times; to improve performance in her activities of daily living; improve her balance and coordination. 2.She does not have a stroke on MRI. However, she does have stroke risk factors and should be on an ti-platelet regimen: perhaps the aspirin 81 mg daily along with folic acid 1 mg daily and perhaps mo derate-dose statin. The patient will be followed specially if admitted to the inpatient rehabilitati on unit. NIK/YAA Voice ID: [id number] Report ID: [id number]
--- NOTE | 2020-01-24 23:51 | PN ---
Date of Progress Note: 01/24/2020 Subjective: Patient was seen this morning for followup. She was lying in bed, not in any distress. No new complaints or problems reported by her. Objective: Vital Signs: Reviewed. HEENT: Unremarkable. Lungs: Bilateral good air entry. Presence of crackles in lower lung field, unchanged. Heart: Sounds normal. Presence of systolic murmur, unchanged. Abdomen: Soft. Bowel sounds normal. No guarding, rigidity, tenderness, or distention. Extremities: Bilateral leg edema, but much better today than yesterday. BLOCKERS SKIVER: Unchanged from yesterday. Laboratory Data: Patient's carotid Doppler does not show any hemodynamically significant stenotic le davion. MRI of the brain came back negative, which was done today, so no evidence of stroke. Echocard iogram is pending. Impression: 1.Cervical spinal stenosis. 2.Hypertension. 3.Anemia due to chronic kidney disease. 4.Volume depletion. Plan: We will go ahead and continue IV fluid for volume depletion. Continue current antihypertensiv e medications. MRI of cervical and lumbar spine was ordered. We will follow up on that. Details we re discussed with Dr. Brito and continue to follow with Physical Therapy. Speech therapy evaluati on reviewed. At present time, we are definitely concerned about severe cervical spinal stenosis and waiting on the MRI and then we will decide further plan of treatment. Dr. Brito has suggested inp atient rehab therapy, and hopefully if she gets accepted, we might be able to transfer her tomorrow. Patient is at high risk from any kind of s urgical intervention. MELITA/MODL Voice ID: [id number] Report ID: [id number]
[2020-01-25 01:17] VITALS: O2SAT 98
[2020-01-25] MEDS: NA CHLORIDE 0.9% 1,000 ML IV SCH (02:38)
[2020-01-25 05:15] LABS: Absolute Lymphocytes (CBC) 1.9 K/uL (0.7-4.9); Basophils % 1.1 % (0-1.3); Hematocrit 28.2 % (36.0-45.0); MPV 8.9 fL (7.6-11.3); RBC Red Blood Cell Count 3.03 M/uL (3.86-4.86)
[2020-01-25 05:25] LABS: Potassium 4.1 mmol/L (3.5-5.1)
--- NOTE | 2020-01-25 07:06 | ECHO ---
HEIGHT: 5 ft 0 in WEIGHT: 117 lb 0 oz DATE OF STUDY: 01/24/[address]: Sharad Martinez MD 2-DIMENSIONAL: YES M.MODE: YES DOPPLER: YES COLOR FLOW: YES TDS: PORTABLE: DEFINITY: BUBBLE STUDY: DIAGNOSIS: [*] CARDIAC HISTORY: CATHERIZATION: NO SURGERY: NO PROSTHETIC VALVE: NO PACEMAKER: NO MEASUREMENTS (cm) DIASTOLIC (NORMALS) SYSTOLIC (NORMALS) IVSd 1.0 (0.6-1.2) LA Diam 3.5 (1.9-4.0) LVEF 78% LVIDd 5.0 (3.5-5.7) LVIDs 2.7 (2.0-3.5) %FS 46% LVPWd 1.0 (0.6-1.2) Ao Diam 2.6 (2.0-3.7) 2 DIMENSIONAL ASSESSMENT: RIGHT ATRIUM: NORMAL LEFT ATRIUM: NORMAL RIGHT VENTRICLE: NORMAL LEFT VENTRICLE: NORMAL TRICUSPID VALVE: NORMAL MITRAL VALVE: NORMAL PULMONIC VALVE: NORMAL AORTIC VALVE: STENOTIC PERICARDIAL EFFUSION: NONE AORTIC ROOT: NORMAL LEFT VENTRICULAR WALL MOTION: NORMAL DOPPLER/COLOR FLOW: MODERATE AORTIC STENOSIS. COMMENTS: MODERATE AORTIC STENOSIS - 1.1 CENTIMETER SQUARED AREA. NORMAL LEFT VENTRICULAR SIZE AND FUNCTION. NO VEGETATION. NO THROMBUS. TECHNOLOGIST: NISHI ADAN
[2020-01-25] MEDS: ASPIRIN EC 81 MG TAB PO SCH (09:03)
[2020-01-25] MEDS: HEPARIN 5000 UNIT/ML 1 ML VIAL SQ SCH (09:03)
--- NOTE | 2020-01-25 13:43 | RAD REPORT ---
EXAM DESCRIPTION: RAD - Barium Swallow Modified - 01/25/2020 1:36 pm CLINICAL HISTORY: Cough FINDINGS: Laryngeal penetration: Cleared There is minimal reduced bolus containment with thin liquid. There is reduced sbase of tongue retract ion and midly reduced laryngeal elevation. There is flash penetration of thin liquid via cup that clears and deeper flash penetration with straw sip of thin (also clears). There was no aspiration viewed during this exam with any consistency test ed. Barium tablet passed with thin liquid without penetration or aspiration. There was mild stasis noted @ the level of the UES and mild to moderate stasis noted in the esophagus. Osteophytes visible throug hout the cervical spine. Fluoro time 3.11 minutes. Nineteen fluoroscopic spot images obtained
[2020-01-25 13:47] VITALS: BP 168/90; TEMP 97.8
--- NOTE | 2020-01-26 06:32 | EKG ---
Test Date: 2020-01-24 Test Time: 02:08:39 Marine Driller: RT MEASUREMENT RESULTS: Intervals: Rate: 51 MN: 178 QRSD: 148 QT: 458 QTc: 422 [place]: P: 68 MN: 178 QRS: -30 T: 18 INTERPRETIVE STATEMENTS: Sinus bradycardia with sinus arrhythmia Left axis deviation Right bundle branch block Abnormal ECG Compared to ECG 12/21/2018 08:14:33 Sinus rhythm no longer present Electronically Signed On 01-26-20 06:30:32 CDT by Joesph Willams
--- NOTE | 2020-01-26 07:38 | DS ---
Date of Discharge: 01/25/2020 Disposition: Discharged to go home. Physical Examination: HEENT: Unremarkable. Lungs: Bilateral good equal entry. Presence of crackles in lower lung field, unchanged. Heart: Sounds normal, presence of systolic murmur, unchanged. Abdomen: Soft. Bowel sounds normal. No guarding, rigidity, tenderness, or distention. Extremities: Trace leg edema. Overall much better than before. Laboratory Data: Upon admission, white count 12, hemoglobin 10.1, platelets 299. Repeat white count today 8.8, hemoglobin 9.1, platelets 250. Sodium 143, potassium 3.9, chloride 104, bicarb 32, BUN 4 9, creatinine 2.5, glucose 125. Liver function tests unremarkable. Calcium 11. This morning, sodiu m 145, potassium 4.1, chloride 109, bicarb 31, BUN 44, creatinine 2.18, glucose 95, calcium 10. MRI of lumbar spine shows significant compression fracture of L1 spine with 70% to 80% height loss and ve ry mild compression fracture of L2 with about 10% height loss. There is some evidence of spinal sten osis with posterior retropulsion with moderate spinal canal stenosis. Echocardiogram showed normal e jection fraction of 78%, moderate aortic stenosis. Carotid Doppler, bilateral plaquing, no hemodynam ically significant stenosis. MRI of cervical spine, moderate multilevel degenerative change. CAT sc an of the head negative for any acute intracranial changes. MRI of the brain negative for any acute intracranial changes. Hospital Course: An 79-year-old female patient admitted to the hospital with weakness of arm and leg . I was concerned about possibility of stroke with her weakness of left upper extremity and left low er extremity. She was admitted to the hospital after I evaluated her as a direct admission. CAT sca n of the head was negative for any acute changes. MRI of the brain done yesterday which was negative for any acute stroke. So, we concentrated on MRI of cervical spine and lumbar spine, results review ed as mentioned above. Patient has chronic back pain, which has not changed in many many months. No recent fall or injury. I did discuss with her about her MRI results. Considering her chronic back pain, which has not changed lately there is no need for any further intervention for compression frac ture of spine. Dr. Brito from Neurology was consulted and we were planning to send her to [facility] rehab, but today I was notified by case finisher that insurance company denied rehab benefit. Phys ical Therapy was consulted. Patient has a walker at home and she was instructed to use walker all th e time. Social Service was consulted to help make arrangements for home health care and home physica l therapy and after all arrangements were completed, patient was discharged to go home. Speech thera pist was consulted as well and modified barium swallow test done. Speech therapist gave recommendati on to patient. Final Diagnoses: 1.Cervical spondylosis. 2.Lumbar spinal stenosis. 3.Compression fracture of L1 and L2 lumbar spine. 4.Hypertension. 5.Mixed hyperlipidemia. 6.Chronic obstructive pulmonary disease. 7.Atypical mycobacterium infection of lung. 8.Gastroesophageal reflux disease. 9.Diverticulosis. 10.Volume depletion. 11.Impaired fasting glucose. 12.Restless legs syndrome. 13.Osteoarthritis, multiple sites. 14.Anemia due to chronic kidney disease. Discharge Medications: 1.Continue all prior home medications. 2.Patient to restart her nifedipine 10 mg p.o. daily. She has prescription at home. Followup: Will follow up in my office in 2 weeks. MELITA/MODL Voice ID: [id number] Report ID: [id number]
== END 2020-01-25 15:21 | disposition home health service (06) ==
LOC: 2ND 21:35 → INTOOBSV 21:35
PROVIDERS: ADMIT Internal Medicine; ATTEND Internal Medicine
DX: M47.812 Spondylosis without myelopathy or radiculopathy, cervical region (principal); M48.061 Spinal stenosis, lumbar region without neurogenic claudication; M48.56XA Collapsed vertebra, not elsewhere classified, lumbar region, initial encounter for fracture; G25.81 Restless legs syndrome; R73.01 Impaired fasting glucose; I10 Essential (primary) hypertension; E78.2 Mixed hyperlipidemia; J44.9 Chronic obstructive pulmonary disease, unspecified; K21.9 Gastro-esophageal reflux disease without esophagitis; K57.90 Diverticulosis of intestine, part unspecified, without perforation or abscess without bleeding; I12.9 Hypertensive chronic kidney disease with stage 1 through stage 4 chronic kidney disease, or unspecified chronic kidney disease; N18.3 Chronic kidney disease, stage 3 (moderate); M15.9 Polyosteoarthritis, unspecified; M10.9 Gout, unspecified; D63.1 Anemia in chronic kidney disease; M85.80 Other specified disorders of bone density and structure, unspecified site; A31.0 Pulmonary mycobacterial infection; E86.9 Volume depletion, unspecified; Z87.891 Personal history of nicotine dependence
CPT/HCPCS: 93005; 93306; 85025 ×2; 81001; 80048; 36415 ×2; 83735; 84443; 84439; 80053; 70450; 71046; 74230; 93880; 70551; 72141; 72148; 92526; 92611; 97116 ×4; 97161; 97530 ×2; J1644 ×3; J7030 ×2; G0378 ×3

== ENCOUNTER 2020-11-05 08:05 | Emergency (ER) | payer OTHER ==
--- OUTSIDE RECORDS SUMMARY | 2020-11-05 08:13 | XMS REPORT | Continuity of Care Document ---
:1940 Author Organization [facility] t Address [address] [place] [address] Care Team Providers Name Role Phone Priti Martinez MD Primary Care Physician 1, Lab Attending Clinician Unavailable Only, Test Attending Clinician Unavailable Rosa Fisher MD Attending Clinician Av Puente MD Attending Clinician Evangelista Ramirez Attending Clinician Ronnell Pak Attending Clinician Evangelista Ramirez Admitting Clinician Payers Payer Name Policy Type Policy Effective Date Expiration Date Sour ce Number AETNA MEDICAREAETNA [id number] 2013 [place] MEDICARE HMO/PPO 00:00:00 Nilda leyva [id number] -PresentHMO Problems Condition Condition Condition Status Onset Resolution Last Treating Co mments Source Name Details Category Date Date Treatment Clinician Date POST Diagnosis Active 2019-04-21 Mem oria PROCEDURAL 04-06 22:14:00 l FEVER AND POST 00:00: Ronal CHILLS PROCEDURAL 00 FEVER AND CHILLS [facility] Active 2019-04-06 M emoria TENDON 02-28 15:11:00 l TEAR, LEFT ABDUCTOR 00:00: He rmann HIP TENDON 00 TEAR, LEFT HIP Active 02/28/2019 [facility] Essential Essential Disease Active Rom[place] ston hypertensi hypertensi 8-15 Me thodi on on 00:00: st 00 Carotid Carotid Disease Active [place] artery artery 8-15 [facility] disease disease 00:00: st 00 Aortic Aortic Disease Active [place] valve valve 8-15 [facility] stenosis stenosis 00:00: st 00 Abnormal Abnormal Disease Active [place] EKG EKG 8-15 Methodi 00:00: st 00 Dizziness Dizziness Disease Active [place] ston 8-15 [facility] 00:00: st 00 Bilateral Bilateral Disease Active [place] ston carotid carotid 8-15 [facility] bruits bruits 00:00: st 00 Chest pain Chest pain Disease Active [place] 8-15 Methodi 00:00: st 00 AVD AVD Disease Active [place] (aortic (aortic 8-15 [facility] valve valve 00:00: st disease) disease) 00 HLD HLD Disease Active [place] (hyperlipi (hyperlipi 8-15 Me thodi demia) demia) 00:00: st 00 DX: Diagnosis Active 2017-01-04 Mem oria M54.5=LOW 12-03 15:37:00 l BACK PAIN, DX: 00:00: Prasad n M80.08XG=A M54.5=LOW 00 GE-RE BACK PAIN, M80.08XG=A GE-RE Active 12/03/2016 [place] UNK Diagnosis Active 2016-12-08 Mem oria 329 16:04:00 l UNK 00:00: Ronal 00 Active 12/03/2016 [place] Postproced Problem 2019-04-15 M emoria ural fever 21:59:38 l [place] Postproced ural fever 04/15/2019 [facility] Paraparesi Problem Resolve 2019-04-15 Memoria s d 21:59:38 l (disorder) Prasad n Paraparesi s (disorder) Resolved Problem 04/15/2019 [facility] [place] Arthritis Problem Active 2019-04-15 Me moria (disorder) 21:59:38 l Ronal Arthritis (disorder) Active Problem 04/15/2019 [facility] Chronic Problem Active 2019-04-15 Aristides aileen obstructiv 21:59:38 l e lung Chronic [place] disease obstructiv (disorder) e lung disease (disorder) Active Problem 04/15/2019 [facility] Compressio Problem Active 2019-04-15 M emoria n fracture 21:59:38 l of lumbar [place] spine Compressio (disorder) n fracture of lumbar spine (disorder) Active Problem 04/15/2019 [facility] Dependence Problem Active 2019-04-15 M emoria on 21:59:38 l supplement Prasad n al oxygen Dependence (finding) on supplement al oxygen (finding) Active Problem 04/15/2019 O2 2L N/C HS [facility] Dyspnea on Problem Active 2019-04-15 M emoria exertion 21:59:38 l (finding) Dyspnea Herm candelaria on exertion (finding) Active Problem 04/15/2019 [facility] Gastroesop Problem Active 2019-04-15 M emoria hageal 21:59:38 l reflux Ronal disease Gastroesop (disorder) hageal reflux disease (disorder) Active Problem 04/15/2019 [facility] Hyperchole Problem Active 2019-04-15 M emoria sterolemia 21:59:38 l (disorder) Prasad n Hyperchole sterolemia (disorder) Active Problem 04/15/2019 [facility] Hypertensi Problem Active 2019-04-15 M emoria ve 21:59:38 l disorder, Ronal systemic Hypertensi arterial ve (disorder) disorder, systemic arterial (disorder) Active Problem 04/15/2019 [facility] Malignant Problem Active 2019-04-15 Me moria melanoma 21:59:38 l (disorder) Prasad n Malignant melanoma (disorder) Active Problem 04/15/2019 [facility] Osteopenia Problem Active 2019-04-15 M emoria (disorder) 21:59:38 l Ronal Osteopenia (disorder) Active Problem 04/15/2019 [facility] Restless Problem Active 2019-04-15 Mem oria legs 21:59:38 l (disorder) Restless He r[place] legs (disorder) Active Problem 04/15/2019 RLS [facility] POSTPROCED Diagnosis Active 2019-04-21 Memoria URAL FEVER 22:14:00 l Ronal POSTPROCED URAL [facility]EVER [facility] L[facility] BACK Diagnosis Active 2017-01-04 M emoria PAIN 15:37:00 l LOW BACK Prasad n PAIN Active [facility] AGE-REL Diagnosis Active 2016-12-08 Me moria OSTEOPOR W 16:04:00 l CRNT PATH AGE-REL Herm candelaria FX, OSTEOPOR W VERTEB, CRNT PATH FX, VERTEB, Active [facility] Urinary Problem Resolve 2019-04-15 2019-04-15 Memoria tract d 2- 21:59:38 21:59:38 l infectious Urinary 00:00: Her [place] disease tract 00 (disorder) infectious disease (disorder) Resolved 10/08/2018 Problem 04/15/2019 multiple earlier in the year, then started cranberry pills, [facility] Allergies, Adverse Reactions, Alerts Allergy Allergy Status Severity Reaction(s) Onset Inactive Treating Comm ents Source Name Type Date Date Clinician [facility] DA [facility] [place] DA [facility] 09-30 [place] 00:00: Orthope [facility] Penicill DA Active [facility] 02-12 [place] 00:00: Orthope 00 [facility] [place] DA [facility] 02[facility]12 [place] 00:00: Orthope 00 [facility] penicill penicill Active Memori a ins ins l Ronal penicill penicill Active [facility]ori a ins<sup> ins<sup> l 1</sup> 1</sup> Ronal Benicar< Benicar< Active Memori a sup>2</s sup>2</s l up> up> Ronal Adhesive Adhesive Active Memori a Tape Tape l Ronal [place] Propensi Active [place] an ty to Methodi adverse st reaction s to drug Penicill Propensi Active [place] ins ty to Methodi adverse st reaction s to drug Social History Social Habit Start Date Stop Date Quantity Comments Source Sex Assigned At [facility] ethodist Social History 2019-03-04 2019-03-04 Daiana villanueva 13:56:47 13:56:47 Medications Ordered Filled Start Stop Current Ordering Indication Dosage Frequency Signature Comments Components Source Medication Medication Date Date Medication? Clinician (SIG) Name Name losartan Yes TAKE 1 Khadar (COZAAR) 3-26 TABLET BY Method i 100 MG 00:00: MOUTH st tablet 00 EVERY DAY losartan 2018-09- No TAKE 1 Jesus smith (COZAAR) 2-30 03-26 TABLET BY Metho di 100 MG 00:00: 00:[address] tablet 00 :00 EVERY DAY Clonidine Yes 0.1 mg = 1 Me moria Hydrochlori 8-07 tab, PO, l de 0.1 MG 18:13: Q8H, # 90 [place] Oral Tablet 00 tab, 3 Refill(s), [facility]acy: [id number] Levofloxaci Yes 500 mg = 1 Memoria n 500 MG 8-07 tab, PO, l Oral Tablet 18:13: Q24H, X 14 [place] [Levaquin] 00 day, # 14 tab, 0 Refill(s), Pharmacy: [id number] Diphenhydra 2018- Yes 25 mg = 1 M emoria mine 8-07 tab, PO, l Hydrochlori 18:13: TID, X 7 He rmann de 25 MG 00 day, # 21 Oral Tablet tab, 0 [Benadryl] Refill(s), Pharmacy: [id number] Hydralazine Yes 50 mg = 1 M emoria Hydrochlori 8-07 tab, PO, l de 50 MG 18:13: TID, # 90 Herm candelaria Oral Tablet 00 tab, 3 Refill(s), Pharmacy: [id number] Aspirin 81 2018- Yes 81 mg = 1 Me moria MG Enteric 8-07 tab, PO, l Coated 17:43: BID, # 56 Prasad n Tablet 00 tab, 0 Refill(s), other tramadol Yes 50 mg = 1 Aristides aileen hydrochlori 8-07 tab, PO, l de 50 MG 17:43: Q6H, PRN Ara nn Oral Tablet 00 Pain, X 10 day, # 40 tab, 0 Refill(s), called to pharmacy Benadryl No Notes: Memoria 8-07 (Same as: l 16:50: Benadryl) [place] Kayexalate No Notes: Memor ia 8-06 (sodium l 18:39: polystyren [place] e sulfonate 15 gm/60 ml LAILA) Shake well before use. (Same as: Kayexalate , SPS) Miralax No Notes: Memoria 8-06 Dissolve l 14:14: in 8 oz of Ronal 00 water or juice. (Same as: Miralax) Docusate No Notes: Memoria Sodium 100 -06 (Same as: l MG Oral 14:00: Colace) Ronal Capsule 00 (Do Not Crush) Aspirin 325 No Notes: (Do Memoria MG Enteric 04-12 Not Crush) l Coated 14:00: Do not [place] Tablet 00 crush or chew. Zofran ODT No Notes: Memor ia 8-06 (Same as: l 06:49: Zofran Ronal 00 ODT) Tranexamic No Notes: Memor ia Acid 8-06 (Same as: l 04:49: Lysteda) Tramadol No Notes: Not Mem oria 06 to exceed l 01:01: 400mg/day. [place] (Same As: Ultram) Hydromorpho No Notes: Aristides aileen ne 8-05 Same as l 23:20: Dilaudid Labetalol No 10 mg, 2 Aristides aileen 8-05 mL, Route: l 23:20: IVP, Drug form: INJ, Q5Min, Dosing Weight 53.182, kg, PRN Elevated BP, Start date: 04/11/19 18:20:00 CDT, Duration: 5 doses or times, Stop date: Limited # of times, 0 Metoprolol No Notes: Memor ia 8-05 (Same as: l 23:20: Lopressor) Push over 2 minutes Hydralazine No Notes: Aristides aileen 8-05 (Same as: l 23:20: Apresoline ) Push over 5 minutes Promethazin No Notes: Do M emoria e 8-05 not give l 23:20: IV push. (Same as: Phenergan) Meperidine No Notes: Memor ia 04-11 (Same as: l 23:20: Demerol) "Use Precaution in Elderly, Seizure disorders, and Renal impairment " Ondansetron No Notes: Aristides aileen 04-11 (Same as: l 23:20: Zofran) MEDICATION WASTE Product Size: 4 mg Product Wasted: ___ mg Melatonin No Notes: Memori a 04-11 (Same as: l 22:49: Melatonin) Trazodone No Notes: Memori a 04-11 (Same As: l 22:49: Desyrel) Diphenhydra No Notes: Aristides aileen mine 04-11 (Same as: l 22:49: Benadryl) POLYETHYLEN No Notes: Aristides aileen E GLYCOL 04-11 Dissolve l 3350 22:49: in 8 oz of water or juice. (Same as: Miralax) Aluminum No Notes: Memoria Hydroxide 04-11 (aluminum l 200 MG / 22:49: hydroxide- [place] Magnesium 00 magnesium Hydroxide hyd- 200 MG / simethicon Simethicone e 25 MG 400-400-40 Chewable mg/5ml 30 Tablet ml ud LAILA) Dulcolax No Notes: Memoria Laxative 04-11 (Same As: l 22:49: Dulcolax, Bisco-Lax) NS 1,000 mL No 1,000 mL, M emoria 04-11 Rate: 85 l 22:49: ml/hr, Infuse over: 11.8 hr, Route: IV, Dosing Weight 53.182 kg, Total Volume: 1,000, When PO intake adequate, okay to saline lock, Start date: 04/11/19 17:49:00 CDT, Duration: 30 day, Stop date: 05/11/19 17:48:00 CDT, 1.52, m2, 0 tranexamic No Route: IV, M emoria acid (ANES) 04-11 Drug form: l 22:39: INJ, ONCE, Stop date: 04/11/19 17:39:00 CDT cefepime 2019-0 No Route: IV, Mem oria (ANES) 04-11 Drug form: l 22:39: INJ, ONCE, Stop date: 04/11/19 17:39:00 CDT neostigmine 2018-0 No Route: IV, Memoria (ANES) 04-11 Drug form: l 22:30: INJ, ONCE, Stop date: 04/11/19 17:30:00 CDT glycopyrrol 2018- No Route: IV, Memoria ate (ANES) 04-11 Drug form: l 22:30: INJ, ONCE, Stop date: 04/11/19 17:30:00 CDT ondansetron 2018- No Route: IV, Memoria (ANES) 04-11 Drug form: l 22:30: INJ, ONCE, Stop date: 04/11/19 17:30:00 CDT propofol 2019-0 No Route: IV, Mem oria (ANES) 04-11 Drug form: l 21:59: INJ, ONCE, Stop date: 04/11/19 16:59:00 CDT rocuronium 2018-0 No Route: IV, M emoria (ANES) 04-11 Drug form: l 21:59: INJ, ONCE, Stop date: 04/11/19 16:59:00 CDT fentaNYL 2019-0 No Route: IV, Mem oria (ANES) 04-11 Drug form: l 21:59: INJ, ONCE, Stop date: 04/11/19 16:59:00 CDT lidocaine 2019-0 No Route: IV, Me moria (ANES) 04-11 Drug form: l 21:59: INJ, ONCE, Stop date: 04/11/19 16:59:00 CDT midazolam 2019-0 No Route: IV, Me moria (ANES) 04-11 Drug form: l 21:54: SOLN, ONCE, Stop date: 04/11/19 16:54:00 CDT ePHEDrine 2019-0 No Route: IV, Me moria (ANES) 04-11 Drug form: l 21:54: INJ, ONCE, Stop date: 04/11/19 16:54:00 CDT Lactated No Route: IV, Mem oria Ringers 04-11 Total l Injection 20:54: Volume: IV (ANES) 00 1,000, 1000 mL Start date: 04/11/19 15:54:00 CDT, Stop date: 04/11/19 16:54:00 CDT Metoprolol No 5 mg, Memori a 04-11 Route: IV, l 20:25: ONCE, Dosing Weight 53.182, kg, Start date: 04/11/19 15:25:00 CDT, Stop date: 04/11/19 15:25:00 CDT metoprolol No 5 mg, Memori a tartrate 04-11 Route: PO, l 20:08: Drug form: TAB, ONCE, Dosing Weight 53.182, kg, Start date: 04/11/19 15:08:00 CDT, Stop date: 04/11/19 15:08:00 CDT normal No 1,000 mL, Memori a saline 0.9% 04-11 Rate: 75 l IV 1,000 mL 05:01: ml/hr, Infuse over: 13.3 hr, Route: IV, Dosing Weight 51.818 kg, Total Volume: 1,000, Start date: 04/11/19 0:01:00 CDT, Duration: 1 day, Stop date: 04/12/19 0:00:00 CDT, 1.5, m2, 0 Kayexalate No Notes: Memor ia 04-10 (sodium l 15:00: polystyren e sulfonate 15 gm/60 ml LAILA) Shake well before use. (Same as: Kayexalate , SPS) gabapentin No Notes: Memor ia 600 MG Oral 04-09 (Same as: l Tablet 22:00: Neurontin) Hydralazine No Notes: Aristides aileen 04-09 (Same as: l 18:00: Apresoline ) May interfere w/enteral feedings Take With Food. Trelegy No Trelegy Memoria Ellipta ( 8-03 Ellipta ( l 100mcg/62.5 13:00: 100mcg/62. [place] mcg/25mcg) 00 5mcg/25mcg ), 1 puff, Drug form: MISC, Route: INHALATION , RDaily, 04/09/19 8:00:00 CDT, Duration: 30 day, Stop date: 05/08/19 8:00:00 CDT, 0 hydrALAZINE No Notes: Aristides aileen 04-08 (Same as: l 22:00: Apresoline ) May interfere w/enteral feedings Take With Food. Labetalol No 100, 0 Memori a 04-08 l 16:42: Trelegy No Trelegy Memoria Ellipta ( 04-08 Ellipta ( l 100mcg/62.5 01:00: 100mcg/62. Ronal mcg/25mcg) 00 5mcg/25mcg ), 1 puff, Drug form: MISC, Route: INHALATION , RDaily, 04/07/19 20:00:00 CDT, Duration: 30 day, Stop date: 05/07/19 8:00:00 CDT, 0 carbidopa-l No Notes: Aristides aileen evodopa 04-07 Take with l 22:00: milk or food. (Same As: Sinemet) Restasis No Notes: Memoria 04-07 (Same as: l 14:00: Restasis) Ronal 00 Aspirin 81 No Notes: Do Me moria MG Enteric 04-07 not crush l Coated 14:00: or chew. Ronal Tablet (Same As: Ecotrin) Allopurinol No Notes: Aristides aileen 04-07 (Same as: l 14:00: Zyloprim) Albuterol No Notes: Memori a 0.1 04-07 (Same as: l MG/ACTUAT / 14:00: Duoneb) [place] Ipratropium 00 [place] 0.02 MG/ACTUAT Metered Dose Inhaler Vitamin E No 800 Memoria 04-07 IntlUnit, l 14:00: 2 cap, Route: PO, Drug form: CAP, Daily, Dosing Weight 51.818, kg, Start date: 04/07/19 9:00:00 CDT, Duration: 30 day, Stop date: 05/06/19 9:00:00 CDT, 0 ubiquinone No Notes: Memor ia 04-07 Same as l 14:00: Co-Enzyme Q10 Ranitidine No 150 mg, 1 Me moria 150 MG Oral 04-07 tab, l Tablet 14:00: Route: PO, Ara nn 00 Drug form: TAB, BID, Dosing Weight 51.818, kg, Start date: 04/07/19 9:00:00 CDT, Duration: 30 day, Stop date: 05/06/19 17:00:00 CDT Losartan No Notes: Memoria 04-07 (Same as: l 14:00: Cozaar) gabapentin No Notes: Memor ia 600 MG Oral 04-07 (Same as: l Tablet 14:00: Neurontin) Ara famotidine No Notes: Memor ia 04-07 (Same as: l 14:00: Pepcid) Carbidopa/E No Carbidopa/ Memoria ntacapone/L 04-07 Entacapone l evodopa 14:00: /Levodopa Ara nn 25/200/100m 00 25/200/100 g mg, 1 tab, Drug form: MISC, Route: PO, QID, 04/07/19 9:00:00 CDT, Duration: 30 day, Stop date: 05/06/19 21:00:00 CDT, 0 Clonidine No Notes: Memori a 04-07 (Same As: l 05:00: Catapres) atorvastati No Notes: Aristides aileen n 04-07 (Same As: l 02:00: Lipitor) Carbidopa No 1 tab, Memori a 50 MG / 04-07 Route: PO, l entacapone 02:00: Drug Form: H ermann 200 MG / 00 TAB, Levodopa Dosing 200 MG Oral Weight Tablet 51.818, kg, QID, Start date: 04/06/19 21:00:00 CDT, Duration: 30 day, Stop date: 05/06/19 17:00:00 CDT Carbidopa No Notes: Memori a 25 MG / 04-07 Take with l Levodopa 01:30: milk or Prasad n 100 MG Oral 00 food. Tablet (Same As: Sinemet) Benadryl No Notes: Memoria 04-07 (Same as: l 01:30: Benadryl) [place] 00 Albuterol No Notes: Memori a 0.833 MG/ML 04-07 (Same as: l / 01:11: Duoneb) [place] Ipratropium 00 [place] 0.167 MG/ML Inhalant Solution [DuoNeb] Hydralazine No Notes: Aristides aileen Hydrochlori 04-07 (Same as: l de 10 MG 01:10: Apresoline Her [place] Oral Tablet 00 ) May interfere w/enteral feedings. Take With Food Symbicort No Notes: Memori a 160/4.5 04-07 (Same as: l inhalation 00:57: Symbicort) H ermann aerosol 00 WASTE: with Aerosol - adapter Return to Pharmacy Acetaminoph No Notes: Aristides aileen en 325 MG / 04-06 (Same as: l Hydrocodone 23:28: [place] Ara nn Bitartrate 00 325/5) Do 5 MG Oral not exceed Tablet 4gm/day of [[place] acetaminop 5/325] hen. tramadol No Notes: Not Mem oria hydrochlori 04-06 to exceed l de 50 MG 23:22: 400mg/day. [place] Oral Tablet 00 (Same As: Ultram) Morphine No Notes: Memoria 04-06 (Same l 23:22: as:MORPhin Ronal 00 e Sulfate) Tylenol No Notes: Do Memor ia 04-06 not exceed l 23:22: 4 gm/day. Ronal 00 (Same as: Tylenol) Vancomycin No 2001 mg: Me moria 04-06 infuse l 23:00: over 2.5 Ronal 00 hours For adult patients only: Round to nearest 250 mg per Medical Staff approval MEDICATION WASTE Product Size: 1000 mg Product Wasted: ___ mg Vitamin E Yes 800 Memoria 04-06 IntlUnit, l 21:13: PO, Daily, Ronal 00 0 Refill(s) cefepime No Notes: Memoria 04-06 (Same As: l 21:00: Maxipime) Ronal 00 MEDICATION WASTE Product Size: 1000 mg Product Wasted: ___ mg Dexamethaso Yes Notes: Aristides aileen ne 03-15 dexamethas l 19:19: one 10 Ronal 00 mg/1 ml VL INJ PF MEDICATION WASTE Product Size: 10 mg Product Wasted: ___ mg Acetaminoph Yes 1 tab, PO, Memoria en 325 MG / 03-15 Q6H, PRN l Hydrocodone 18:38: Pain, X 15 [place] Bitartrate 00 day, # 40 7.5 MG Oral tab, 0 Tablet Refill(s), [[place] given to 7.5/325] patient Aspirin 325 No Notes: (Do Memoria MG Enteric 03-15 Not Crush) l Coated 14:00: Do not Ronal Tablet 00 crush or chew. Aspirin 81 Yes 81 mg = 1 Me moria MG Enteric 03-15 tab, PO, l Coated 13:08: BID, # 90 Prasad n Tablet 00 tab, 3 Refill(s) Zofran ODT No Notes: Memor ia 03-15 (Same as: l 03:19: Zofran Ronal 00 ODT) Vancomycin No 2001 mg: Me moria 03-15 infuse l 03:00: over 2.5 [place] 00 hours For adult patients only: Round to nearest 250 mg per Medical Staff approval MEDICATION WASTE Product Size: 1000 mg Product Wasted: ___ mg Tranexamic No Notes: Memor ia Acid 03-15 (Same as: l 01:19: Lysteda) Cefazolin No Notes: Memori a 03-14 Same as: l 23:00: Ancef [place] Docusate No Notes: Memoria Sodium 100 03-14 (Same as: l MG Oral 22:00: Colace) [place] Capsule 00 (Do Not Crush) gabapentin No Notes: Memor ia 600 MG Oral 03-14 (Same as: l Tablet 22:00: Neurontin) Ara nn 00 Diphenhydra No Notes: Aristides aileen mine -08 (Same as: l 19:19: Benadryl) [place] 00 Acetaminoph No Notes: Aristides aileen en 325 MG / -08 Same as l Hydrocodone 19:19: [place] Ara nn Bitartrate 00 325-7.5mg 7.5 MG Oral Do not Tablet exceed [[place] 4gm/day of 7.5/325] acetaminop hen. Morphine No Notes: Memoria 7 (Same l 19:19: as:MORPhin [place] 00 e Sulfate) Aluminum No Notes: Memoria Hydroxide 03-14 (aluminum l 200 MG / 19:19: hydroxide- Her [place] Magnesium 00 magnesium Hydroxide hyd- 200 MG / simethicon Simethicone e 25 MG 400-400-40 Chewable mg/5ml 30 Tablet ml ud LAILA) POLYETHYLEN No Notes: Aristides aileen E GLYCOL 03-14 Dissolve l 3350 19:19: in 8 oz of [place] 00 water or juice. (Same as: Miralax) Trazodone No Notes: Memori a - (Same As: l 19:19: Desyrel) Ronal Melatonin No Notes: Memori a - (Same as: l 19:19: Melatonin) [place] 00 Dulcolax No Notes: Memoria Laxative - (Same As: l 19:19: Dulcolax, [place] 00 Bisco-Lax) Acetaminoph No Notes: Aristides aileen en 325 MG / 03-14 (Same as: l Hydrocodone 19:19: [place] Ara nn Bitartrate 00 325/5) Do 5 MG Oral not exceed Tablet 4gm/day of [[place] acetaminop 5/325] hen. Tylenol No Notes: Do Memor ia -08 not exceed l 19:19: 4 gm/day. [place] (Same as: Tylenol) Famotidine No Notes: Memor ia 7-08 (Same as: l 19:19: Pepcid) NS 1,000 mL No 1,000 mL, Abby barreraria 03-14 Rate: 85 l 19:19: ml/hr, Infuse over: 11.8 hr, Route: IV, Dosing Weight 51.818 kg, Total Volume: 1,000, When PO intake adequate, okay to saline lock, Start date: 03/14/19 14:19:00 CDT, Duration: 30 day, Stop date: 04/13/19 14:18:00 CDT, 1.5, m2, 0 glycopyrrol No Route: IV, Memoria ate (ANES) 03-14 Drug form: l 19:18: INJ, ONCE, Stop date: 03/14/19 14:18:00 CDT neostigmine No Route: IV, Memoria (ANES) 03-14 Drug form: l 19:18: INJ, ONCE, Stop date: 03/14/19 14:18:00 CDT ondansetron No Route: IV, Memoria (ANES) 03-14 Drug form: l 19:18: INJ, ONCE, Stop date: 03/14/19 14:18:00 CDT ePHEDrine No Route: IV, Me moria (ANES) 03-14 Drug form: l 19:12: INJ, ONCE, Stop date: 03/14/19 14:12:00 CDT Albuterol No Notes: SEE Me moria 0.83 MG/ML 03-14 RT l Inhalant 18:31: DOCUMENTAT [place] Solution 00 ION (Same as: Proventil) Ondansetron No Notes: Aristides aileen 03-14 (Same as: l 18:31: Zofran) MEDICATION WASTE Product Size: 4 mg Product Wasted: ___ mg Naloxone No Notes: Memoria 03-14 Same as l 18:31: Narcan Flumazenil No Notes: Memor ia 03-14 (Same as: l 18:31: Romazicon) Hydromorpho No Notes: Aristides aileen ne 03-14 Same as l 18:31: Dilaudid Morphine 2018-0 No Notes: Memoria 03-14 (Same l 18:31: as:MORPhin e Sulfate) ceFAZolin No Route: IV, Me moria (ANES) 03-14 Drug form: l 17:25: INJ, ONCE, Stop date: 03/14/19 12:25:00 CDT dexamethaso No Route: IV, Memoria ne (ANES) 03-14 Drug form: l 17:25: INJ, ONCE, Stop date: 03/14/19 12:25:00 CDT fentaNYL No Route: IV, Mem oria (ANES) 03-14 Drug form: l 17:15: INJ, ONCE, Stop date: 03/14/19 12:15:00 CDT lidocaine No Route: IV, Me moria (ANES) 03-14 Drug form: l 17:15: INJ, ONCE, Stop date: 03/14/19 12:15:00 CDT propofol No Route: IV, Mem oria (ANES) 03-14 Drug form: l 17:15: INJ, ONCE, Stop date: 03/14/19 12:15:00 CDT rocuronium No Route: IV, M emoria (ANES) 03-14 Drug form: l 17:15: INJ, ONCE, Stop date: 03/14/19 12:15:00 CDT hydrALAZINE No Route: IV, Memoria (ANES) 03-14 Drug form: l 17:15: INJ, ONCE, Stop date: 03/14/19 12:15:00 CDT Lactated No Route: IV, Mem oria Ringers 03-14 Total l Injection 16:20: Volume: Ara nn IV (ANES) 00 1,000, 1000 mL Start date: 03/14/19 11:20:00 CDT, Stop date: 03/14/19 12:20:00 CDT Lactated 0 No 1,000 mL, Aristides aileen Ringers IV 03-14 Rate: TKO, l 1,000 mL 14:52: Route: IV, Her [place] 00 Dosing Weight 51.818 kg, Total Volume: 1,000, Start date: 03/14/19 9:52:00 CDT, Duration: 30 day, Stop date: 04/13/19 9:51:00 CDT, 1.5, m2, 0 Vancomycin No 2001 mg: Me moria 03-14 infuse l 14:00: over 2.5 [place] 00 hours For adult patients only: Round to nearest 250 mg per Medical Staff approval ropivacaine No Notes: Aristides aileen 03-14 NOT FOR l 14:00: IV use Ronal 00 Each mL contains: Ropivacain e 2.46 mg, Epinephrin e 0.005 mg, Clonidine 0.0008 mg and Ketorolac 0.3 mg in Sodium Chloride Dexamethaso No Notes: Aristides aileen ne 03-14 dexamethas l 13:56: one 10 [place] 00 mg/1 ml VL INJ PF MEDICATION WASTE Product Size: 10 mg Product Wasted: ___ mg Tranexamic No Notes: Memor ia Acid 03-14 (Same as: l 13:56: Lysteda) Ronal 00 Zofran ODT No Notes: Memor ia 03-14 (Same as: l 13:56: Zofran [place] 00 ODT) ropivacaine No 100 ml/hr, Memoria 0.5% 246.25 03-14 Route: l mg + 11:00: InFILtrati Ronal EPINEPHrine 00 on(local), 0.5 mg + ONCALL, cloNIDine Start 80 date: microgram + 03/14/19 Sodium 6:00:00 Chloride CDT, Stop 0.9% IV date: 03/15/19 0:00:00 CDT, 0 polymyxin B No Notes: Aristides aileen sulfate + 03-14 (Same as: l Sodium 11:00: Polymyxin Prasad n Chloride 00 B Sulfate) 0.9% IV 250 mL vancomycin No Notes: Memor ia + Sodium 7-08 TIME l Chloride 11:00: CRITICAL Ara nn 0.9% IV 250 00 MEDICATION mL (Same As: Vancocin) For adult patients only: Round to nearest 250 mg per Medical Staff approval calcium Yes 1{tbl} Take 1 [place] carbonate 03-08 tablet by Jose Raul slater (CALCIUM 10:58: mouth. st 600) 600 mg 46 calcium (1,500 mg) tablet cycloSPORIN Yes 1[drp] Apply 1 [place] E 03-08 drop to [facility] (RESTASIS) 10:58: eye. st 0.05 % 46 ophthalmic emulsion cranberry Yes Take by [place] on xt/multivit 03-08 mouth. Method i martinez 10:58: st (CRANBERRY 46 EXTRACT-MUL TIVITAMIN ORAL) acetaminoph Yes Take by Rommel ston en (TYLENOL 03-08 mouth. Method i ARTHRITIS 10:58: st ORAL) 46 GLUCOSAM Yes glucosamin Rommel ston SUL 03-08 e-chondroi Methodi NA/CHONDR 10:54: tn sulf.Na st (GLUCOSAMIN 23 E-CHONDROIT N SULF.NA ORAL) flaxseed Yes flaxseed [place] on 1,000 mg 03-08 Methodi capsule 10:54: st 23 aspirin Yes 81mg QD Take 81 mg [place] (ECOTRIN) 03-08 by mouth Method i 81 MG 10:54: daily. st enteric 23 coated tablet Albuterol Yes 1 puff, Memor ia 0.1 03-04 INHALATION l MG/ACTUAT / 14:13: , QID, 0 He rmann Ipratropium 00 Refill(s) [place] 0.02 MG/ACTUAT Metered Dose Inhaler tramadol Yes 100 mg = 2 Mem oria hydrochlori -28 tab, PO, l de 50 MG 14:09: Daily, PRN Her [place] Oral Tablet 00 Pain, # 40 tab, 0 Refill(s) Loratadine No 10 mg = 1 Me moria 6-28 tab, PO, l 14:09: Daily, PRN Ronal 00 Itching / rash / allergy symptoms, # 14 tab, 0 Refill(s) 8 HR Yes 1,300 mg = Memoria Acetaminoph 28 2 tab, PO, l en 650 MG 14:09: Q8H, 0 Prasad n Extended 00 Refill(s) Release Tablet [Tylenol] Calcium No PO, BID, 0 Aristides aileen Citrate 03-04 Refill(s) l 14:08: [place] 00 Restasis Yes 1 drp, Memoria 03-04 BOTH EYES, l 14:08: Q12H, 0 [place] 00 Refill(s) Trelegy Yes = 1 puff, Memor ia Ellipta 03-04 INHALATION l inhalation 14:08: , Daily, 0 H ermann powder 00 Refill(s) Hydralazine Yes 10 mg = 1 M emoria Hydrochlori 03-04 tab, PO, l de 10 MG 14:07: BID, # 120 Her [place] Oral Tablet 00 tab, 0 Refill(s) Vitamin E No PO, Daily, Me moria 03-04 0 l 14:06: Refill(s) [place] 00 gabapentin Yes 2 tabs, Aristides aileen 600 MG Oral 03-04 PO, BID, # l Tablet 14:06: 270 tab, 0 Ara nn 00 Refill(s) losartan Yes 100 mg = 1 Mem oria 100 mg oral 03-04 tab, PO, l tablet 14:05: Daily, # [place] 00 30 tab, 0 Refill(s) Diphenhydra Yes 25 mg = 1 M emoria mine 03-04 tab, PO, l Hydrochlori 14:05: TID, 0 Herm candelaria de 25 MG 00 Refill(s) Oral Tablet [Benadryl] Ranitidine Yes 150 mg = 1 M emoria 150 MG Oral 03-04 tab, PO, l Tablet 14:04: BID, # 60 Prasad n 00 tab, 0 Refill(s) ranitidine Yes 150mg Q.5D Take 150 [place] (ZANTAC) 6-27 mg by Methodi 150 MG 00:00: mouth 2 st tablet 00 (two) times a day. traMADol Yes TAKE 2 [place] (ULTRAM) 50 6-03 TABLET(S) Met hodi mg tablet 00:00: EVERY 12 st 00 HOURS BY ORAL ROUTE NEEDED FOR 30 DAYS. hydrALAZINE Yes 20mg Q.5D Take 20 mg [place] (APRESOLINE 5-13 by mouth 2 Me thodi ) 10 MG 00:00: (two) st tablet 00 times a day. TRELEGY Yes INHALE 1 [place] ELLIPTA 3-30 PUFF BY Methodi 100-62.5-25 00:00: MOUTH st mcg blister 00 EVERY DAY with device clonIDINE Yes TAKE 2 [place] (CATAPRES) 8-09 TABLETS BY Met hodi 0.1 MG 00:00: MOUTH IN st tablet 00 THE MORNING AND EVENING AND 1 TABLET AT NOON carbidopa-l Yes TAKE 1 [place] evodopa 7-28 TABLET BY Methodi (SINEMET) 00:00: ORAL ROUTE st 25-100 mg 00 4 TIMES per tablet EVERY DAY FOR RESTLESS LEG SYNDROME allopurinol Yes 100mg QD Take 100 H [...] once st 250 MG 00 daily. tablet gabapentin Yes 600mg Q.25D Take 600 [place] (NEURONTIN) 6-07 mg by Methodi 600 mg 00:00: mouth 4 st tablet 00 (four) times a day. Flumazenil No 0.2 mg, Aristides aileen 4-03 Route: l 14:02: IVP, PRN, Ronal 00 Dosing Weight 60.938, kg, PRN Benzodiaze pine Reversal, Initial dose, Start date: 12/08/16 9:02:00 CDT, Duration: 30 day, Stop date: 01/07/17 9:01:00 CDT Fentanyl No 50 Memoria 4-03 microgram, l 14:02: Route: [place] 00 IVP, Q5Min, Dosing Weight 60.938, kg, PRN Pain Score 7-10, Priority: Routine, Start date: 12/08/16 9:02:00 CDT, Duration: 2 doses or times, Stop date: Limited # of times Acetaminoph 2017-0 No 1,000 mg, M silvino en 12-08 Route: l 14:02: IVPB, Drug [place] 00 form: INJ, ONCE, Dosing Weight 60.938, kg, PRN Pain Score 1-3, Start date: 12/08/16 9:02:00 CDT, Duration: 1 doses or times, Stop date: Limited # of times Ketorolac 2017-0 Yes 30 mg, Memori a 12-08 Route: l 14:02: IVP, ONCE, [place] 00 Dosing Weight 60.938, kg, Start date: 12/08/16 9:02:00 CDT, Duration: 1 doses or times, Stop date: 12/08/16 9:02:00 CDT Morphine 2017-0 No 2 mg, Memoria 12-08 Route: l 14:02: IVP, [place] 00 Q5Min, Dosing Weight 60.938, kg, PRN Pain Score 4-6, Start date: 12/08/16 9:02:00 CDT, Duration: 5 doses or times, Stop date: Limited # of times Hydromorpho 2017-0 No 0.5 mg, Mem oria ne 12-08 Route: l 14:02: IVP, Ronal 00 Q5Min, Dosing Weight 60.938, kg, PRN Pain Score 7-10, Start date: 12/08/16 9:02:00 CDT, Duration: 4 doses or times, Stop date: Limited # of times Oxycodone 2017-0 No 10 mg, Memori a 12-08 Route: PO, l 14:02: Drug form: [place] 00 TAB, Q4H, Dosing Weight 60.938, kg, PRN Pain Score 7-10, Start date: 12/08/16 9:02:00 CDT, Duration: 30 day, Stop date: 01/07/17 9:01:00 CDT Naloxone 2017-0 No 0.4 mg, Memori a 12-08 Route: l 14:02: IVP, Ronal 00 Q2MIN, Dosing Weight 60.938, kg, PRN Narcotic Reversal, Start date: 12/08/16 9:02:00 CDT, Duration: 8 doses or times, Stop date: Limited # of times Meperidine 2017-0 No 12.5 mg, Mem oria 12-08 Route: l 14:02: IVP, Ronal 00 Q30Min, Dosing Weight 60.938, kg, PRN Other -See Comment, For shivering, Start date: 12/08/16 9:02:00 CDT, Duration: 2 doses or times, Stop date: Limited # of times Diphenhydra 2016-0 No 12.5 mg, Me moria mine 12-08 Route: l 14:02: IVP, Drug Ronal 00 form: INJ, Q6H, Dosing Weight 60.938, kg, PRN Itching, Start date: 12/08/16 9:02:00 CDT, Duration: 30 day, Stop date: 01/07/17 9:01:00 CDT 72 HR 2016-0 Yes 1 patch, Memoria Scopolamine 12-08 Route: l 0.0139 14:02: TOP, Drug Prasad n MG/HR 00 Form: Transdermal ERFILM, Patch Dosing Weight 60.938, kg, ONCE, Apply behind ear. Avoid use in elderly., Start date: 12/08/16 9:02:00 CDT, Stop date: 12/08/16 9:02:00 CDT Promethazin 2016-0 No 6.25 mg, Me moria e 12-08 Route: l 14:02: IVPB, Ronal 00 ONCE, Dosing Weight 60.938, kg, PRN Nausea & Vomiting, Start date: 12/08/16 9:02:00 CDT Ondansetron 2016-0 No 4 mg, Memor ia 12-08 Route: l 14:02: IVP, ONCE, [place] 00 Dosing Weight 60.938, kg, PRN Nausea & Vomiting, Start date: 12/08/16 9:02:00 CDT Calcium 2017-0 No 1,000 mL, Memor ia Chloride 12-08 Rate: 125 l 0.0014 14:02: ml/hr, [place] MEQ/ML / 00 Infuse Potassium over: 8 Chloride hr, Route: 0.004 IV, Dosing MEQ/ML / Weight Sodium 60.938 kg, Chloride Total 0.103 Volume: MEQ/ML / 1,000, Sodium Start Lactate date: 0.028 04/03/17 MEQ/ML 9:02:00 Injectable CDT, Solution Duration: 30 day, Stop date: 01/07/17 9:01:00 CDT lidocaine No Route: IV, Me moria (ANES) 12-08 Drug form: l 13:36: INJ, ONCE, Ronal 00 Stop date: 12/08/16 8:36:00 CDT fentaNYL No Route: IV, Mem oria (ANES) 12-08 Drug form: l 13:22: INJ, ONCE, Stop date: 12/08/16 8:22:00 CDT ondansetron No Route: IV, Memoria (ANES) 4 Drug form: l 13:22: INJ, ONCE, Stop date: 12/08/16 8:22:00 CDT Cleocin No Route: IV, Aristides aileen Phosphate 12-08 Drug form: l (ANES) 12:55: INJ, Start Ara nn (ANES) 00 date: 12/08/16 7:55:00 CDT, Stop date: 12/08/16 8:55:00 CDT propofol No Route: IV, Mem oria (ANES) 12-08 Drug form: l (ANES) 12:49: INJ, Start Ara nn 00 date: 12/08/16 7:49:00 CDT, Stop date: 12/08/16 8:49:00 CDT LR 1000 mL No Route: IV, M emoria INJ (ANES) 12-08 Total l 12:42: Volume: [place] 00 1,000, Start date: 12/08/16 7:42:00 CDT, Stop date: 12/08/16 8:42:00 CDT Calcium No 1,000 mL, Memor ia Chloride 12-08 Rate: 25 l 0.0014 11:57: ml/hr, [place] MEQ/ML / 00 Infuse Potassium over: 40 Chloride hr, Route: 0.004 IV, Dosing MEQ/ML / Weight Sodium 60.938 kg, Chloride Total 0.103 Volume: MEQ/ML / 1,000, Sodium Start Lactate date: 0.028 12/08/16 MEQ/ML 6:57:00 Injectable CDT, Solution Duration: 30 day, Stop date: 01/07/17 6:56:00 CDT Albuterol No 3 mL, Memoria 0.833 MG/ML 12-04 Route: l / 14:31: NEB, Ronla Ipratropium 00 Dosing [place] Weight 0.167 MG/ML 60.938, Inhalant kg, ONCE, Solution STAT, Start date: 12/04/16 9:31:00 CDT, Stop date: 12/04/16 9:31:00 CDT Calcium No 1,000 mL, Memor ia Chloride 12-04 Rate: 25 l 0.0014 14:31: ml/hr, Ronal MEQ/ML / 00 Infuse Potassium over: 40 Chloride hr, Route: 0.004 IV, Dosing MEQ/ML / Weight Sodium 60.938 kg, Chloride Total 0.103 Volume: MEQ/ML / 1,000, Sodium Start Lactate date: 0.028 12/04/16 MEQ/ML 9:31:00 Injectable CDT, Solution Duration: 30 day, Stop date: 01/03/17 9:30:00 CDT Flax Seed Yes 1,000 mg Aristides aileen Oil oral 30 =, PO, l capsule 12:37: BID, 0 Ronal 00 Refill(s) Glucosamine Yes 1 tab, PO, Memoria & 3-30 TID, 0 l Chondroitin 12:36: Refill(s) H ermann with MSM azithromyci Yes 250 mg = 1 Memoria n 250 mg 30 tab, PO, l oral tablet 12:36: Daily, # 6 Ronal 00 tab, 0 Refill(s) Norvasc Yes PO, Memoria 3-30 Bedtime, 0 l 12:32: Refill(s) Ronal 00 Carbidopa Yes 1 tab, PO, Me moria 50 MG / 3-30 QID, # 120 l entacapone 12:31: tab, 0 Ara nn 200 MG / 00 Refill(s) Levodopa 200 MG Oral Tablet Immunizations Ordered Immunization Filled Immunization Date Status Commen ts Source Name Name JAKI COVID-19 2020-10-31 Completed [place] MRNA VACCINATION 00:00:00 Abhijitis autumn JAKI COVID-19 2020-09-25 Completed [place] MRNA VACCINATION 00:00:00 Methodis t Vital Signs Vital Name Observation Time Observation Value Comments Source Systolic (mm Hg) 2019-04-13 16:32:00 Aristides rial Ronal Diastolic (mm Hg) 2019-04-13 16:32:00 Mem orial Ronal Heart Rate 2019-04-13 16:32:00 [facility] [place] Respitory Rate 2019-04-13 16:32:00 Memori al [place] Temperature Oral (F) 2019-04-13 16:32:00 98.0 F [facility] [place] Temperature Oral (F) 2019-04-13 12:23:00 97.9 F [facility] Ronal Systolic (mm Hg) 2019-04-13 12:23:00 Aristides rial [place] Diastolic (mm Hg) 2019-04-13 12:23:00 Mem orial [place] Respitory Rate 2019-04-13 12:23:00 Memori al Ronal Heart Rate 2019-04-13 12:23:00 [facility] [place] Systolic (mm Hg) 2019-04-13 08:25:00 Aristides rial Ronal Diastolic (mm Hg) 2019-04-13 08:25:00 Mem orial [place] Respitory Rate 2019-04-13 08:25:00 Memori al Ronal Heart Rate 2019-04-13 08:25:00 [facility] [place] Temperature Oral (F) 2019-04-13 08:25:00 98.3 F [facility] Ronal BMI Calculated 2019-04-11 19:18:00 Memori al Ronal Weight 2019-04-11 19:18:00 [facility] [place] Height 2019-04-11 19:18:00 152.4 cm [facility] [place] BMI Calculated 2019-04-06 21:04:00 Memori al [place] Height 2019-04-06 21:04:00 152.4 cm [facility] [place] Weight 2019-04-06 21:04:00 [facility] Ronal Respitory Rate 2019-03-15 12:15:00 Memori al [place] Heart Rate 2019-03-15 12:15:00 [facility] [place] Systolic (mm Hg) 2019-03-15 12:15:00 Aristides rial Ronal Diastolic (mm Hg) 2019-03-15 12:15:00 Mem orial [place] Temperature Oral (F) 2019-03-15 12:15:00 98.6 F [facility] [place] Respitory Rate 2019-03-15 09:11:00 Memori al Ronal Systolic (mm Hg) 2019-03-15 09:11:00 Aristides rial Ronal Diastolic (mm Hg) 2019-03-15 09:11:00 Mem orial [place] Temperature Oral (F) 2019-03-15 09:11:00 98.7 F [facility] Ronal Heart Rate 2019-03-15 09:11:00 [facility] [place] Temperature Oral (F) 2019-03-15 04:52:00 98.4 F [facility] Ronal Heart Rate 2019-03-15 04:52:00 [facility] [place] Respitory Rate 2019-03-15 04:52:00 Memori al [place] Systolic (mm Hg) 2019-03-15 04:52:00 Aristides rial [place] Diastolic (mm Hg) 2019-03-15 04:52:00 Mem orial [place] BMI Calculated 2019-03-14 14:38:00 Memori al Ronal Weight 2019-03-14 14:38:00 [facility] Ronal Height 2019-03-04 13:39:00 152.4 cm [facility] [place] Systolic (mm Hg) 2016-12-08 16:15:00 Aristides rial [place] Diastolic (mm Hg) 2016-12-08 16:15:00 Mem orial Ronal Systolic (mm Hg) 2016-12-08 14:30:00 Aristides rial Ronal Diastolic (mm Hg) 2016-12-08 14:30:00 Mem orial [place] Respitory Rate 2016-12-08 14:22:00 Memori al [place] Systolic (mm Hg) 2016-12-08 14:22:00 Aristides rial Ronal Diastolic (mm Hg) 2016-12-08 14:22:00 Mem orial Ronal Respitory Rate 2016-12-08 13:55:00 Memori al [place] Respitory Rate 2016-12-08 13:38:00 Memori al [place] Temperature Oral (F) 2016-12-04 12:15:00 97.4 F [facility] [place] Heart Rate 2016-12-04 12:15:00 [facility] [place] Weight 2016-12-04 11:25:00 [facility] Ronal Height 2016-12-04 11:25:00 149.86 cm [facility] [place] BMI Calculated 2016-12-04 11:25:00 Memori al [place] Procedures Procedure Date / Time Performed Performing Clinician Olga sawyer Kyphoplasty of fracture 2016-12-08 05:00:00 Aristides Villeda of lumbar spine using fluoroscopic guidance Breast [facility] lumpectomy<sup>1</sup> Bunionectomy [facility] Cataract surgery [facility] n Excision of melanoma [facility] [place] [place] Glaucoma surgery [facility] Hysterectomy [facility] Rotator cuff repair [facility] [place] Plan of Care Planned Activity Planned Date Details Comments Source Future Scheduled 2020-04-07 INFLUENZA VACCINE [place] [facility] 00:00:00 [code = INFLUENZA VACCINE] Future Scheduled 2004 65+ PNEUMOCOCCAL [place] [facility] 00:00:00 VACCINE (1 of 1 - PPSV23) [code = 65+ PNEUMOCOCCAL VACCINE (1 of 1 - PPSV23)] Future Scheduled 1989 SHINGLES VACCINES (#1) [facility] 00:00:00 [code = SHINGLES VACCINES (#1)] Encounters Start End Encounter Admission Attending Care Care Encounter Source Date/Time Date/Time Type Type Clinicians Facility Department ID 2019-04-07 Inpatient U [facility] [id number] 07:46:00 [facility] 2019-04-06 Inpatient U [facility] [id number] [facility] 15:01:03 2020-10-31 2020-10-31 Outpatient [facility] [id number] 439 [place] 00:00:00 00:00:[address] 2020-09-25 2020-09-25 Outpatient [facility] [id number] 087 [place] 00:00:00 00:00:[address] 2020-08-06 2020-08-06 Letter 1, [facility] [id number] 00:00:00 00:00:00 (Out) [place] 350.1.13.10 [place] 4.2.7.2.686 [place] [id number] 2020-08-01 2020-08-01 Laboratory Only, [facility] [id number] 10:03:29 10:18:29 Only Test [place] 350.1.13.10 [place] 4.2.7.2.686 [place] [id number] 2019-04-07 2019-04-13 Outpatient Ashley [facility] [id number] 07:46:00 14:05:00 Alvaro 12 Evangelista 2019-03-14 2019-03-15 Outpatient Ashley [facility] [id number] 07:06:00 15:13:00 Alvaro 02 Evangelista 2019-03-14 2019-03-14 Outpatient [facility] [id number] MH 07:06:00 07:06:00 [facility] 2016-12-08 2016-12-08 Outpatient Mellisa [facility] [id number] 06:04:00 11:00:00 John 00 Ronnell Results Test Description Test Time Test Comments Results Result Comments Source HEMATOLOGY 2019-04-13 8.3 [facility] nn 09:09:00 HEMATOLOGY 2019-04-13 25.6 [facility] nn 09:09:00 CHEM PANEL 2019-04-12 114 [facility] nn 09:04:00 CHEM PANEL 2019-04-12 107 [facility] [place] nn 09:04:00 CHEM PANEL 2019-04-12 141 [facility] nn 09:04:00 CHEM PANEL 2019-04-12 5.0 [facility] [place] 09:04:00 CHEM PANEL 2019-04-12 20 [facility] [place] nn 09:04:00 CHEM PANEL 2019-04-12 1.40 [facility] [place] nn 09:04:00 CHEM PANEL 2019-04-12 28 [facility] [place] nn 09:04:00 CHEM PANEL 2019-04-12 8.8 [facility] [place] 09:04:00 CHEM PANEL 2019-04-12 36 [facility] [place] 09:04:00 CHEM PANEL 2019-04-12 11.0 [facility] [place] 09:04:00 HEMATOLOGY 2019-04-12 0.1 [facility] [place] 09:04:00 HEMATOLOGY 2019-04-12 0.5 [facility] [place] 09:04:00 HEMATOLOGY 2019-04-12 1.5 [facility] [place] 09:04:00 HEMATOLOGY 2019-04-12 1.3 [facility] [place] 09:04:00 HEMATOLOGY 2019-04-12 9.4 [facility] [place] 09:04:00 HEMATOLOGY 2019-04-12 0.7 [facility] [place] nn 09:04:00 HEMATOLOGY 2019-04-12 11.4 [facility] [place] nn 09:04:00 HEMATOLOGY 2019-04-12 3.8 [facility] [place] nn 09:04:00 HEMATOLOGY 2019-04-12 10.4 [facility] [place] nn 09:04:00 HEMATOLOGY 2019-04-12 73.7 [facility] [place] nn 09:04:00 HEMATOLOGY 2019-04-12 12.8 [facility] [place] nn 09:04:00 HEMATOLOGY 2019-04-12 2.83 [facility] [place] nn 09:04:00 HEMATOLOGY 2019-04-12 15.4 [facility] [place] nn 09:04:00 HEMATOLOGY 2019-04-12 26.1 [facility] [place] nn 09:04:00 HEMATOLOGY 2019-04-12 92.0 [facility] Ara nn 09:04:00 HEMATOLOGY 2019-04-12 09:04:00 Test Item Value Reference Range Interpretation Comme nts MCH (test code = MCH) 30.2 pg 27.0-31.0 [facility] ZdcsjidOPQKBZJCSM7271-99-60 09:04:0032.9[facility] HermannHEMATOLOGY 2019-04-12 09:04:70160Xppecyct LnlkmrfSYWBNSUYHO6564-57-42 09:04:008.0[facility] GchyshjWZOLAREGHE4583-36-80 09:04:008.6[facility] [place] CIPROFLOXACIN:SUSC:PT:ISOLATE:ORDQN:AKU3854-04-52 00:27:00Serratia marcescens [facility] HermannBLOOD BANK [id number] 09:56:00Negative (04/11/19 4:56 AM) [facility]annCHEM KWLMC9784-24-82 09:56:0099[facility] HermannCHEM PANEL 2019-04-11 09:56:0022[facility] HermannCHEM MJCMC8934-84-45 09:56:0029[facility] HermannCHEM RSTDR5647-52-88 09:56:36759Pmjjkopr HermannCHEM IGXWW9126-32-96 09:56:004.8[facility] HermannCHEM OHPQP2212-72-34 09:56:008.9[facility] HermannCHEM NDCFT5736-51-15 09:56:39639Manosvrk HermannCHEM TDOFX9755-73-48 09:56:001.26 [facility]annCHEM TPHLZ8890-11-68 09:56:0041[facility] HermannCHEM PANEL 2019-04-11 09:56:0010.8[facility] XdralniHXCOEZYFDB0409-33-18 09:56:0073[facility] UthynskRYXILUSVEM6092-77-64 09:56:0096.3[facility] HermannCHEM FNRCK4556-66-19 10:45:0040[facility] HermannCHEM NLLLH8385-89-77 10:45:005.3[facility] HermannCHEM GTUJA8958-11-79 10:45:80780Ywwvmahi HermannCHEM RQQAN6063-32-00 10:45:008.6 [facility]annCHEM ZWVGQ5654-07-12 10:45:0029[facility] HermannCHEM PANEL 2019-04-10 10:45:33570Ecodrjue HermannCHEM ESFZQ3557-72-43 10:45:001.28[facility] HermannCHEM VDGMJ3591-82-43 10:45:52768Offygajp HermannCHEM PISXQ2529-84-00 10:45:0020[facility] HermannCHEM HNYTQ0943-64-21 10:45:0011.3[facility] Ronal NVKOHUHHAL4515-75-78 10:45:0026.0[facility] UhbmbpbOHRFVFOVKE0048-61-09 10:45:00 92.0[facility] PxhsaxnLYKTGDNCHW4884-96-42 10:45:0015.6[facility] HermannHEMATOLOGY 2019-04-10 10:45:27094Qwlbehnb PesbzfvRRRQCRVCIJ6166-52-47 10:45:00 Test Item Value Reference Range Interpretation Comments MCH (test code = MCH) 29.9 pg 27.0-31.0 Memorial HnngkmoQZQUZDXCKO1572-58-45 10:45:008.6[facility] HermannHEMATOLOGY 2019-04-10 10:45:0032.5[facility] UbmherhWAVYTLOAYS9974-92-33 10:45:008.4[facility] NtzjlapWFPBHUXUDU4542-79-96 10:45:002.82[facility] UefkmgoFISOJVXJUV4810-25-35 10:45:009.1[facility] OzfowysFEYTHRNRQU4084-59-29 10:43:11796.0[facility] Ronal RFGJJKCHQW8612-88-01 09:17:0013.4[facility] CebwtdfFXEJPYHYSN7672-64-16 09:17:00 3.5[facility] RavklceFYVNVSOVXX4870-34-01 09:17:000.7[facility] HermannHEMATOLOGY 2019-04-08 09:17:0070.9[facility] OfjhhugTRWMVCESQH7107-78-79 09:17:0011.5[facility] WhzbsbqPNRICSSTHC8862-76-90 09:17:001.8[facility] NnqiijyTHTDJBZEWB4228-36-11 09:17:000.5[facility] GuqqmxzFOBUYKUSJI4733-22-05 09:17:000.1[facility] Ronal HREUBGHFRX3481-10-56 09:17:009.6[facility] ZfirxdpWPGUGXAFUP9565-95-37 09:17:001.6 [facility] OrjbrpyHFMKEYGZOP0992-56-08 09:17:00 Test Item Value Reference Range Interpretation Comments MCH (test code = MCH) 30.0 pg 27.0-31.0 Memorial WmugpyvYAQVMXWQYP5609-39-94 09:17:008.9[facility] HermannHEMATOLOGY 2019-04-08 09:17:0032.6[facility] AcikdevVXVJSQHEGY1545-32-28 09:17:33858Htturafz VemlwdpFHFNUBKOAB4311-21-94 09:17:0016.1[facility] LjyyqrqELVWCKFZVI3456-97-49 09:17:0013.6[facility] EakipbtEOMRYQEMZW1262-70-52 09:17:0092.0[facility] Ronal VGEUBEBRWU2258-90-95 09:17:002.78[facility] UquatgzHOZLWESUZO9427-42-79 09:17:00 Test Item Value Reference Range Interpretation Comments Vanco Tr TND (test code = Vanco Tr 0600 1 TND) [facility] LrsrgplSJSSBODQMA8761-62-13 09:17:0027.2[facility] HermannHEMATOLOGY 2019-04-06 21:47:000.1[facility] BdpqhtwVOUUWEISMK7813-55-36 21:47:000.1[facility] SobhebxZBWBNRFGBQ9885-92-94 21:47:0077.7[facility] UotezlwVHTRHYKMSM9791-24-45 21:47:000.8[facility] RxkpditRCEQCTGWOS3909-07-96 21:47:0010.7[facility] Ronal MDAYEFWPBN8543-61-96 21:47:0010.4[facility] UgaywkdTVTCIZQCGB7781-65-46 21:47:00 1.6[facility] WitojofZHAKHBTBPB9735-67-73 21:47:001.6[facility] HermannHEMATOLOGY 2019-04-06 21:47:0011.9[facility] EdutghvSBUNFUZRKK8097-46-05 21:47:000.4[facility] HermannCHEM MRXKV3777-93-07 08:49:008.8[facility] HermannCHEM QJUDG2358-80-79 08:49:004.7[facility] HermannCHEM WQOEK9003-30-93 08:49:85531Dglbahmf HermannCHEM MAHUR0082-55-15 08:49:64475Zghvobhk HermannCHEM BKBWF3335-72-16 08:49:0027 [facility]annCHEM BERXW7716-28-38 08:49:0028[facility] HermannCHEM PANEL 2019-03-15 08:49:16464Hntysyck HermannCHEM LJYFL4784-72-22 08:49:0036[facility] HermannCHEM BNHFE2477-69-42 08:49:001.71[facility] HermannCHEM AXGPE5688-44-47 08:49:0012.7[facility] RqgpzchUBLIXSBXEH4640-81-66 08:49:009.2[facility] Ronal PJIYVRIKYO1757-16-11 08:49:0027.4[facility] HermannURINE AND BSBEO5704-02-15 17:26:00Negative (03/09/19 12:26 PM)[facility]annUR[facility] AND SRREU5503-96-96 17:26:000.2[facility] HermannURINE AND RHLCL4158-33-95 17:26:00Negative (03/09/19 12:26 PM)[facility]ann[facility] AND ASAJJ1029-26-59 17:26:00 Test Item Value Reference Range Interpretation Comments UA Spec Grav (test code = UA Spec 1.010 1 Grav) [facility] [id number] 17:26:00 Test Item Value Reference Range Interpretation Comments UA pH (test code = UA pH) 6.0 1 5.0-8.0 [facility] [id number] 17:26:00Clear (03/09/19 12:26 PM) [facility] [id number] 17:26:00Yellow *NA*(03/09/19 12:26 PM) [facility] [id number] 17:26:00Negative *NA*(03/09/19 12:26 PM) [facility] [id number] 17:26:00Negative (03/09/19 12:26 PM) [facility] [id number] 17:13:00Negative (03/09/19 12:13 PM) [facility] [id number] 17:13:0027[facility] PANEL 2019-03-09 17:13:0018[facility]ann[facility] JVVFE3685-49-95 17:13:0070[facility] AJEUW9681-52-83 17:13:000.2[facility] QOCOF3535-79-98 17:13:007.0[facility] NFQNC1616-98-35 17:13:003.2[facility] BOMTB5328-22-46 17:13:0011[facility] TGXWH2610-66-25 17:13:0026 [facility] SYXPW5286-07-80 17:13:009.5[facility]annCHE[facility] PANEL 2019-03-09 17:13:0096[facility] [id number] 17:13:004.8[facility]CHE[facility] NEIBY6813-30-22 17:13:31956Ubgertaj [facility]annCHEM FKPWX0093-36-50 17:13:0045[facility] [id number] 17:13:34848Bongvxuy [facility]annCHE[facility] XHBTT7365-28-14 17:13:001.79[facility] IEQTL3541-90-10 17:13:003.8 [facility] HermannCHEM [id number] 17:13:00 Test Item Value Reference Range Interpretation Comments B/C Ratio (test code = B/C Ratio) 25 1 6-25 [facility] HermannCHEM [id number] 17:13:00 Test Item Value Reference Range Interpretation Comments A/G Ratio (test code = A/G Ratio) 0.8 1 0.7-1.6 [facility] HermannCHEM [id number] 17:13:0013.8[facility]annHEMATOLOGY 2019-03-09 17:13:000.2[facility] IyatzyjINHYFIFAFX0763-83-87 17:13:000.1[facility] XrlyxwvSJWQQHVOKW8297-32-02 17:13:007.3[facility] GggntxbNZVPDPOGZP4781-81-64 17:13:001.0[facility] TcxjmvzNITYPDSIHF0560-65-96 17:13:001.1[facility] HVLSOMIXZX5229-35-69 17:13:001.8[facility] VqomdzmLKHVZTAAQU9838-88-70 17:13:00 16.7[facility] RyfhomnDFSSOGBASI8174-87-20 17:13:0010.5[facility]annHEMATOLOGY 2019-03-09 17:13:002.3[facility] VnteuorYIUATBSDAT6584-03-03 17:13:0069.5[facility] JwkuapeWOPLGGNEFP2816-43-96 17:13:00 Test Item Value Reference Range Interpretation Comments aPTT (test code = aPTT) 43.0 s 22.9-35.8 [facility] MsdsvsoDNYNYCWYWV6464-87-71 17:13:00 Test Item Value Reference Range Interpretation Comments PROTIME (test code = PROTIME) 12.7 s 12.0-14.7 [facility] QavgeveOULDRSQWWC8039-33-06 17:13:00 Test Item Value Reference Range Interpretation Comments INR (test code = INR) 0.97 1 0.85-1.17 [facility] PucveexHZXEOJUBCE3664-71-75 17:13:009.2[facility]annHEMATOLOGY 2019-03-09 17:13:39506Xfieqvvd MjhqdbtPFLQBDKQGI4782-96-75 17:13:0010.5[facility] GkgmnidLJBPEEEEQR7480-43-04 17:13:003.32[facility] DngoojtIPXCJAPRZC4469-89-56 17:13:0010.0[facility] DuppdwrFJAZQLNHHJ7819-58-26 17:13:0092.8[facility] IXVVUNOAMA5618-07-40 17:13:0030.8[facility] ChyhwhuCNJLQRIFMD8305-72-48 17:13:00 Test Item Value Reference Range Interpretation Comments MCH (test code = MCH) 30.0 pg 27.0-31.0 [facility] FgbslxiVLUEMXQPUE5705-77-89 17:13:0017.0[facility] 2019-03-09 17:13:0032.4[facility] NiwjnvgWBOXLQBWCAMW6770-30-94 11:38:0014.1 [facility] IfihgkuOJGAOOMWIDBS3944-68-38 11:38:0036[facility]LECTROLYTES 2016-12-04 11:38:001.40[facility] SzkpanxDJNLXBLKZJIC9782-15-98 11:38:004.1 [facility] HivekqjSYLUXXNEGUEV5344-71-55 11:38:0029[facility]annELECTROLYTES 2016-12-04 11:38:90871Vurgzmfc QokkopiJBXPWSWJLSGK0322-10-59 11:38:13992Pfzljowd WfmdtlsRHZLYAEJWFET3921-82-97 11:38:009.5[facility] WpvtuatEAHNYABWRFOP0297-40-74 11:38:0095[facility] MtjxdlfOOCUAGKDDUDM1788-95-98 11:38:0034[facility] Ronal FIMLWABNMO8683-08-97 11:38:0013.6[facility] SvxsmisDRVEYOASCA5578-48-43 11:38:00 31.9[facility] NrixpotDFGGIUBIXY6301-85-50 11:38:004.2[facility]ann[facility]MATOLOGY 2016-12-04 11:38:001.4[facility] HhqejgoERZKEZIIXR7958-87-54 11:38:004.6[facility] JpdussuFQXYAYUUCC4636-53-37 11:38:000.1[facility] FzqechyMLHMQFLOMF4901-12-03 11:38:000.4[facility] TfvhbzqRJEGVGPIYK6137-07-70 11:38:001.2[facility] AEPLBIHKFF9437-71-45 11:38:002.8[facility] MyegkooCZLGQLOCMU5529-00-91 11:38:00 48.5[facility] ZaquokcZANADFXYLT4985-82-27 11:38:00 Test Item Value Reference Range Interpretation Comments PT (test code = PT) 13.0 s 12.0-14.7 [facility] SfrizhlKMGADLCDTL7737-91-22 11:38:00 Test Item Value Reference Range Interpretation Comments PTT (test code = PTT) 36.5 s 22.9-35.8 [facility] IkcznczHTXVOUGMMZ1648-59-78 11:38:000.96[facility] 2016-12-04 11:38:008.8[facility] FspickmAODREIMGAG7046-84-75 11:38:40875Pjnpqcjv NtnlcydSURVDOEQIW0129-51-25 11:38:0013.7[facility] BnnmfjoJLBETHMOHN8051-86-92 11:38:0033.2[facility] BtsxofvLVCWAHXEVO0232-59-10 11:38:00 Test Item Value Reference Range Interpretation Comments MCH (test code = MCH) 31.0 pg 27.0-31.0 [facility] NdhcscpHXSBHLRLGR7104-86-66 11:38:0093.6[facility] 2016-12-04 11:38:0039.3[facility] JuheupsHNYDDNSXOJ7121-73-36 11:38:0013.0[facility] DyblxsiVFQOIOMAUO0356-83-81 11:38:004.20[facility] UyesfkdHOFLMCYHUE8989-99-52 11:38:008.8[facility]ann[facility] AND MLCGR0193-95-45 11:38:00Trace *ABN*(12/04/16 6:38 AM)[facility] [id number] 11:38:00Negative (12/04/16 6:38 AM)[facility] [id number] 11:38:00Negative *NA*(12/04/16 6:38 AM)[facility] UXYGC4804-27-58 11:38:00Negative *NA*(12/04/16 6:38 AM)[facility] ISXWA3502-26-77 11:38:00Negative (12/04/16 6:38 AM) [facility] LOOCR8071-52-59 11:38:000.2[facility] MQMFK2261-93-03 11:38:00Negative (12/04/16 6:38 AM)[facility] [id number] 11:38:00 Test Item Value Reference Range Interpretation Comments UA pH (test code = UA pH) 7.0 1 5.0-8.0 [facility] [id number] 11:38:00Trace *ABN*(12/04/16 6:38 AM) [facility] [id number] 11:38:00Yellow *NA*(12/04/16 6:38 AM) [facility] [id number] 11:38:00Clear (12/04/16 6:38 AM) [facility] [id number] 11:38:00 Test Item Value Reference Range Interpretation Comments UA Spec Grav (test code = UA Spec 1.010 1 Grav) [facility] [id number] 11:38:00None Seen (12/04/16 6:38 AM) [facility]
[2020-11-05 08:38] LABS: Hematocrit 26.7 % (36.0-45.0); RBC Red Blood Cell Count 2.88 M/uL (3.86-4.86)
[2020-11-05 08:39] LABS: Absolute Lymphocytes (CBC) 0.5 K/uL (0.7-4.9); Basophils % 0.5 % (0-1.3); Lymphocytes % 5.2 % (15.3-44.8); MPV 7.9 fL (7.6-11.3)
[2020-11-05 08:53] LABS: Protime INR 0.87
[2020-11-05 09:05] LABS: Potassium 6.2 mmol/L (3.5-5.1)
--- NOTE | 2020-11-05 09:23 | RAD REPORT ---
EXAM DESCRIPTION: CT - Chest Abd Pelvis Wo Con - 11/05/2020 8:49 am CLINICAL HISTORY: fall, right sided chest and abd trauma COMPARISON: Thorax Wo Con dated 04/20/2020; Thorax Wo Con dated 09/12/2019; Lumbar Spine 3 Views dated 03/06/2020 TECHNIQUE: Axial 5 millimeter thick images of the chest, abdomen and pelvis were obtained without IV contrast. Oral contrast was administered. All CT scans are performed using dose optimization technique as appropriate and may include automated exposure control or mA/KV adjustment according to patient size. FINDINGS: Patient has an approximately 30- 40% right-sided hydropneumothorax. There is partial atele ctasis of the right upper lobe and significant volume loss in the right middle lobe. Patient has righ t middle lobe and right lower lobe airspace opacification with extensive air bronchogram formation. P atient has known chronic interstitial lung disease. No left-sided pneumothorax. Trace amount of left- sided pleural effusion is seen. A 13 millimeter nodular focus has developed in the superior segment l eft lower lobe (image 16). Minimal interstitial and alveolar opacities otherwise noted in the left he mithorax. No chest wall mass or abnormal axillary lymphadenopathy seen. Mediastinal and hilar regions show no mass or lymphadenopathy. Mild cardiomegaly without pericardial effusion. Cardiac valve and Coronary artery calcifications are present. Liver and spleen show no traumatic injury. Pancreas detail is limited but no gross abnormality seen. Gallbladder and biliary tree are normal. No traumatic injury to the kidneys identifiable. No hydronephrosis or obstructing calculus. Detail is limited in the absence of contrast. No adrenal abnormalities. Urinary bladder is distended without wall thickening, mass or bladder stone. No traumatic injury to the bowel identifiable. No intraperitoneal free air identified. No pneumatosis identified. Patient has dense aortoiliac calcifications. No hernia, mass or bulky lymphadenopathy. A trophic uterus is seen. Ovaries are not uniquely identifiable. Ovarian mass is not suspected. No displaced rib fractures identified. Thoracic spine degenerative change present without acute findi ng. A 50- 60% compression fracture deformity of the L1 body is present previously treated with verteb roplasty. Since prior imaging there does appear to be greater fragmentation of the inferior aspect L1 . No increase in the amount of retropulsion into the central canal. Patient has grossly 8 mm retrolis thesis of L1 relative to L2 that has not clearly changed. Also since prior imaging there has been abelardo tebroplasty treatment of the L2 body with shows approximately 25% loss in height. There is some fragm entation along the superior aspect as well. Concave contour to the L4 superior endplate is present pr obably new from comparison. Near complete loss in disc height at L5-S1 is present with approximately 8 mm of anterior subluxation. Advanced posterior element degenerative changes present with bilateral foraminal encroachment seen. Patient has fluid retention throughout the subcutaneous fatty tissues, peritoneal fat and retroperito serena fat. IMPRESSION: Approximately 30-40% right-sided hydropneumothorax. Patient has extensive right lower lobe parenchymal opacification and air bronchogram formation. Right lower lobe pneumonia superimposed on chronic parenchymal disease is suspected. Fluid retention throughout the subcutaneous fatty tissues, peritoneal fat and retroperitoneal fat. Acute traumatic injury in the abdomen and pelvis not identifiable. Patient has advanced degenerative change, compression fracture deformity and prior vertebroplasty dimple atment to the L1-L2 bodies. Areas questionable increase in fragmentation of the vertebrae at the L1-2 level and suspected new concavity to the L4 superior endplate.
[2020-11-05 09:24] LABS: Blood Morphology Comment NOT SEEN (NOT SEEN); Platelet Estimate ADEQ
[2020-11-05] MEDS ORDERED: Levofloxacin500mg IV 500 MG/100 ML BAG IV ONE (10:03)
[2020-11-05 10:10] LABS: Potassium 6.3 mmol/L (3.5-5.1)
--- NOTE | 2020-11-05 10:15 | EDPHYS ---
Physician Documentation [facility] Name: Ninfa Olsen Age: 80 yrs Sex: Female : 1940 Arrival Date: 11/05/2020 Time: 08:10 Bed 17 Private MD: ED Physician Tyrese Moscoso HPI: 11/05 10:07 This 80 yrs old Female presents to ER via EMS with complaints of fall 3 days rn ago. 10:07 The patient or guardian reports chest pain that is located primarily in the anterior rn chest wall, right lateral posterior chest and right lateral anterior chest. Onset: The symptoms/episode began/occurred 3 day(s) ago. The pain does not radiate. Associated signs and symptoms: Pertinent positives: cough, shortness of breath, Pertinent negatives: abdominal pain, diaphoresis, headache. The chest pain is described as sharp, stabbing. Duration: The patient or guardian reports multiple episodes, that are intermittent. Modifying factors: The symptoms are alleviated by remaining still, the symptoms are aggravated by deep breath, movement, palpation of area. Severity of pain: At its worst the pain was moderate in the emergency department the pain is unchanged. The patient has not experienced similar symptoms in the past. Reports fall from standing 3 days ago, on aspirin, hit right side of chest, reports thought would get better but having increased pain with deep inspiration. Seen by her biologist aide last week for COPD, also has CKD. . Historical: - Allergies: 08:20 Benicar; jd3 08:20 PENICILLINS; jd3 - Home Meds: 08:46 atorvastatin 20 mg Oral tab 1 tab once daily [Active]; aspirin 81 mg Oral TbEC 1 tab jd3 once daily [Active]; allopurinol 100 mg Oral tab 1 tab once daily [Active]; carbidopa-levodopa 25/200 mg 1 tab at 1530 and 1 tab at bedtime Oral tab [Active]; clonidine HCl 0.1 mg Oral tab 3 tabs [Active]; gabapentin Oral [Active]; hydralazine 25 mg oral tab 1 tab 2 times per day [Active]; trelegy INH [Active]; levothyroxine 25 mcg tab 1 tab once daily [Active]; - PMHx: 08:46 High Cholesterol; COPD; Hypertension; jd3 - PSHx: 08:46 Tonsillectomy; shoulder surgery; Knee surgery; Appendectomy; Hysterectomy; foot RISHABH; jd3 hip surgery; - Immunization history:: Adult Immunizations up to date. - Social history:: Smoking status: Patient/guardian denies using tobacco, the patient reports quitting approximately 25 years ago. - Family history:: not pertinent. - Hospitalizations: : No recent hospitalization is reported. ROS: 10:07 Constitutional: Negative for fever, chills, and weight loss, Eyes: Negative for injury, rn pain, redness, and discharge, Neck: Negative for injury, pain, and swelling, Cardiovascular: + right sided chest pain Respiratory: + sob and right sided chest pain Abdomen/GI: Negative for abdominal pain, nausea, vomiting, diarrhea, and constipation, Back: Negative for injury and pain, : Negative for injury, bleeding, discharge, and swelling, MS/Extremity: Negative for injury and deformity, Skin: + bruising right thorax Neuro: + generalized weakness Exam: 10:07 Constitutional: Thin female, no acute distress Head/Face: Normocephalic, atraumatic. rn Neck: No midline tenderness Chest/axilla: + large area of ecchymosis right anterior/lateral chest wall, no crepitus Cardiovascular: Regular rate and rhythm. No pulse deficits. Respiratory: Diminished breath sounds bilaterally, mild tachypnea, speaking full sentences, no retractions Abdomen/GI: soft, mild right sided abd tenderness, no rebound or distension Back: No spinal tenderness. MS/ Extremity: Pulses equal, no cyanosis. Neurovascular intact. Full, normal range of motion. Equal circumference. 1+ edema bilateral lower ext. Neuro: Awake and alert, GCS 15, oriented to person, place, time, and situation Vital Signs: 08:20 BP 132 / 54; Pulse 83; Resp 24 S; Temp 98.7(O); Pulse Ox 99% on 3 lpm NC; Weight 46.27 jd3 kg (R); Height 5 ft. 0 in. (152.40 cm) (R); Pain 0/10; 08:55 BP 136 / 55; Pulse 68; Resp 23 S; Pulse Ox 99% on 3 lpm NC; jd3 10:00 BP 128 / 51; Pulse 75; Resp 22 S; Pulse Ox 100% on R/A; jd3 10:52 Resp 14; Pulse Ox 99% on 2 lpm NC; Pain 9/10; sr5 11:10 Resp 14; Pulse Ox 100% on R/A; Pain 5/10; sr5 11:29 BP 122 / 40; Pulse 84; Resp 15 S; Pulse Ox 98% 3 lpm ; jd3 08:20 Body Mass Index 19.92 (46.27 kg, 152.40 cm) jd3 10:52 right flank sr5 MDM: 08:10 Patient medically screened. rn 09:26 ED course: Consulted with Dr. Huddleston, recommends transfer for thoracic trauma, will rn look at images, states since 3 days old and will need thoracic consultation, to talk to them before he puts a chest tube in.. 10:12 Differential diagnosis: Blunt Chest Trauma Chest Wall Contusion Pleural Effusion rn Pneumothorax Pulmonary Contusion Rib Fracture. Data reviewed: vital signs, nurses notes, lab test result(s), radiologic studies, CT scan, and as a result, I will admit patient. Counseling: I had a detailed discussion with the patient and/or guardian regarding: the historical points, exam findings, and any diagnostic results supporting the discharge/admit diagnosis, lab results, radiology results, the need for further work-up and treatment in the hospital, the need to transfer to another facility, for higher level of care. Response to treatment: the patient's symptoms have mildly improved after treatment, and as a result, I will admit patient. ED course: Pt accepted for transfer to [facility] for traumatic findings, also worsening of kidney function, and possible pneumonia, fall 3 days old, per Dr. Huddleston, does not need emergent chest tube at this time, would rather her evaluated by thoracic surgeon to see if needs VATS. Pt reports breathing fine, is only pain that bothers her. . 10:17 ED course: Received fentanyl by EMS.. rn 11/05 08:11 Order name: CBC with Diff; Complete Time: 09: rn 11/05 08:11 Order name: Basic Metabolic Panel; Complete Time: : rn 11/05 08:11 Order name: Protime (+inr); Complete Time: 09: rn 11/05 08:11 Order name: Ptt, Activated; Complete Time: : rn 11/05 08:42 Order name: Manual Differential; Complete Time: : EDMS 11/05 08:53 Order name: CREATININE WHOLE BLOOD; Complete Time: 09: EDMS 11/05 08:41 Order name: Chest Abd Pelvis Wo Con; Complete Time: 09:25 EDMS 11/05 09:13 Order name: Basic Metabolic Panel jd3 11/05 09:14 Order name: Basic Metabolic Panel EDMS 11/05 10:09 Order name: Blood Culture Adult (2) jd3 11/05 08:11 Order name: IV Start; Complete Time: 08:30 rn Administered Medications: 10:50 Drug: LevaQUIN 500 mg Volume: 100 ml; Route: IVPB; Infused Over: 60 mins; Site: right sr5 antecubital; 11:50 Follow up: Response: No adverse reaction; IV Status: Completed infusion; IV Intake: jd3 100ml 10:50 Drug: NS 0.9% 500 ml Route: IV; Rate: bolus; Site: left antecubital; sr5 11:50 Follow up: Response: No adverse reaction; IV Status: Completed infusion; IV Intake: jd3 500ml 10:55 Drug: morphine 2 mg Route: IVP; Site: left antecubital; sr5 11:12 Follow up: Response: Pain is decreased sr5 10:58 Drug: Xopenex 1.25 mg Route: Inhalation; sr5 11:50 Follow up: Response: No adverse reaction jd3 11:02 Drug: Calcium Gluconate 1 grams Route: IVPB; Infused Over: 60 mins; Site: left sr5 antecubital; 12:00 Follow up: Response: No adverse reaction; IV Status: Completed infusion jd3 11:05 Drug: Kayexalate 15 grams Route: PO; jd3 12:00 Follow up: Response: No adverse reaction jd3 12:24 Drug: morphine 2 mg Route: IVP; Site: left antecubital; jd3 12:24 Follow up: Response: No adverse reaction; RASS: Alert and Calm (0); RASS: Alert and jd3 Calm (0), medicated prior to transfer Disposition: 11/05/20 10:15 Transfer ordered to [facility]. Diagnosis are Pneumothorax, unspecified, Pneumonia, unspecified organism, Acute kidney failure, Multiple fractures of ribs, right side. - Reason for transfer: Higher level of care. - Accepting physician is . - Condition is Stable. - Problem is new. - Symptoms have improved. Signatures: Dispatcher [employer] EDMS Tyrese Moscoso MD MD rn Resecker, Sam RN RN sr5 Franko Agudelo RN RN jd3 Corrections: (The following items were deleted from the chart) 08:41 08:12 Chest Abdomen Pelvis W Con+CT.RAD.BRZ ordered. [facility] EDOH 12:31 10:15 11/05/2020 10:15 Transfer ordered to [facility]. Diagnosis is jd3 Pneumothorax, unspecified; Pneumonia, unspecified organism; Acute kidney failure; Multiple fractures of ribs, right side. Reason for transfer: Higher level of care. Accepting physician is . Condition is Stable. Problem is new. Symptoms have improved. rn
--- NOTE | 2020-11-05 10:15 | ER ---
Nurse's Notes [facility] Name: Ninfa Olsen Age: 80 yrs Sex: Female : 1940 Arrival Date: 11/05/2020 Time: 08:10 Bed 17 Private MD: Diagnosis: Pneumothorax, unspecified;Pneumonia, unspecified organism;Acute kidney failure;Multiple fractures of ribs, right side Presentation: 11/05 08:15 Chief complaint: EMS states: "pt reports fall 3 days ago, with sever right sided rip jd3 pain now. also reporting swelling in the left lower leg. 22 G IV started to the right AC and 75 mcg of Fentanyl given.". Coronavirus screen: At this time, the client does not indicate any symptoms associated with coronavirus-19. Ebola Screen: Patient negative for fever greater than or equal to 101.5 degrees Fahrenheit, and additional compatible Ebola Virus Disease symptoms. Initial Sepsis Screen: Does the patient meet any 2 criteria? No. Patient's initial sepsis screen is negative. Does the patient have a suspected source of infection? No. Patient's initial sepsis screen is negative. Risk Assessment: Do you want to hurt yourself or someone else? Patient reports no desire to harm self or others. Onset of symptoms was November 03, 2020. 08:15 Method Of Arrival: EMS: [facility] jd3 08:15 Acuity: RILEY 3 jd3 Historical: - Allergies: 08:20 Benicar; jd3 08:20 PENICILLINS; jd3 - Home Meds: 08:46 atorvastatin 20 mg Oral tab 1 tab once daily [Active]; aspirin 81 mg Oral TbEC 1 tab jd3 once daily [Active]; allopurinol 100 mg Oral tab 1 tab once daily [Active]; carbidopa-levodopa 25/200 mg 1 tab at 1530 and 1 tab at bedtime Oral tab [Active]; clonidine HCl 0.1 mg Oral tab 3 tabs [Active]; gabapentin Oral [Active]; hydralazine 25 mg oral tab 1 tab 2 times per day [Active]; trelegy INH [Active]; levothyroxine 25 mcg tab 1 tab once daily [Active]; - PMHx: 08:46 High Cholesterol; COPD; Hypertension; jd3 - PSHx: 08:46 Tonsillectomy; shoulder surgery; Knee surgery; Appendectomy; Hysterectomy; foot RISHABH; jd3 hip surgery; - Immunization history:: Adult Immunizations up to date. - Social history:: Smoking status: Patient/guardian denies using tobacco, the patient reports quitting approximately 25 years ago. - Family history:: not pertinent. - Hospitalizations: : No recent hospitalization is reported. Screenin:47 Abuse screen: Denies threats or abuse. Nutritional screening: No deficits noted. jd3 Tuberculosis screening: No symptoms or risk factors identified. Fall Risk Ambulatory Aid- None/Bed Rest/Nurse Assist (0 pts). Gait- Normal/Bed Rest/Wheelchair (0 pts) Mental Status- Oriented to own ability (0 pts). Total Segundo Fall Scale indicates No Risk (0-24 pts). Assessment: 08:10 General: Appears in no apparent distress. comfortable, Behavior is calm, cooperative, jd3 appropriate for age. Pain: Complains of pain in right lateral anterior chest Quality of pain is described as aching. Neuro: Level of Consciousness is awake, alert, obeys commands, Oriented to person, place, time, situation. Cardiovascular: Capillary refill < 3 seconds Patient's skin is warm and dry. Respiratory: Airway is patent Respiratory effort is even, unlabored, Respiratory pattern is regular, symmetrical, Denies shortness of breath. GI: No signs and/or symptoms were reported involving the gastrointestinal system. : No signs and/or symptoms were reported regarding the genitourinary system. EENT: No signs and/or symptoms were reported regarding the EENT system. Derm: Skin is intact, Skin is dry, Skin is normal, Skin temperature is warm Bruising that is dark purple, on right lateral anterior chest. Musculoskeletal: Circulation, motion, and sensation intact. Range of motion: intact in all extremities, Swelling present in right leg and left leg. 08:55 Reassessment: Patient appears in no apparent distress at this time. Patient and/or jd3 family updated on plan of care and expected duration. Pain level reassessed. Patient is alert, oriented x 3, equal unlabored respirations, skin warm/dry/pink. pt reporting that pain medication from EMS still helping. 10:00 Reassessment: Patient appears in no apparent distress at this time. No changes from jd3 previously documented assessment. Patient and/or family updated on plan of care and expected duration. Pain level reassessed. Patient is alert, oriented x 3, equal unlabored respirations, skin warm/dry/pink. 11:29 Reassessment: Patient appears in no apparent distress at this time. Patient and/or jd3 family updated on plan of care and expected duration. Pain level reassessed. Patient is alert, oriented x 3, equal unlabored respirations, skin warm/dry/pink. Patient states feeling better. 12:30 Reassessment: Patient appears in no apparent distress at this time. Patient and/or jd3 family updated on plan of care and expected duration. Pain level reassessed. Patient is alert, oriented x 3, equal unlabored respirations, skin warm/dry/pink. report given to [place] [facility]. Report given to [facility]. Vital Signs: 08:20 BP 132 / 54; Pulse 83; Resp 24 S; Temp 98.7(O); Pulse Ox 99% on 3 lpm NC; Weight 46.27 jd3 kg (R); Height 5 ft. 0 in. (152.40 cm) (R); Pain 0/10; 08:55 BP 136 / 55; Pulse 68; Resp 23 S; Pulse Ox 99% on 3 lpm NC; jd3 10:00 BP 128 / 51; Pulse 75; Resp 22 S; Pulse Ox 100% on R/A; jd3 10:52 Resp 14; Pulse Ox 99% on 2 lpm NC; Pain 9/10; sr5 11:10 Resp 14; Pulse Ox 100% on R/A; Pain 5/10; sr5 11:29 BP 122 / 40; Pulse 84; Resp 15 S; Pulse Ox 98% 3 lpm ; jd3 08:20 Body Mass Index 19.92 (46.27 kg, 152.40 cm) jd3 10:52 right flank sr5 ED Course: 08:10 Patient arrived in ED. rn 08:10 Tyrese Moscoso MD is Attending Physician. rn 08:15 Franko Agudelo RN is Primary Nurse. jd3 08:19 Triage completed. jd3 08:21 Arm band placed on. jd3 08:30 Maintain EMS IV. Dressing intact. Good blood return noted. Site clean \\T\\ dry. Gauge \\T\\ love 3 site: 22 right AC. 08:48 Chest Abd Pelvis Wo Con In Process Unspecified. EDMS 08:48 Patient has correct armband on for positive identification. Bed in low position. Call jd3 light in reach. Side rails up X 1. Pulse ox on. NIBP on. 10:28 Inserted saline lock: 20 gauge in left antecubital area, using aseptic technique. Blood jd3 collected. 12:31 No provider procedures requiring assistance completed. Patient transferred, IV remains jd3 in place. Administered Medications: 10:50 Drug: LevaQUIN 500 mg Volume: 100 ml; Route: IVPB; Infused Over: 60 mins; Site: right sr5 antecubital; 11:50 Follow up: Response: No adverse reaction; IV Status: Completed infusion; IV Intake: jd3 100ml 10:50 Drug: NS 0.9% 500 ml Route: IV; Rate: bolus; Site: left antecubital; sr5 11:50 Follow up: Response: No adverse reaction; IV Status: Completed infusion; IV Intake: jd3 500ml 10:55 Drug: morphine 2 mg Route: IVP; Site: left antecubital; sr5 11:12 Follow up: Response: Pain is decreased sr5 10:58 Drug: Xopenex 1.25 mg Route: Inhalation; sr5 11:50 Follow up: Response: No adverse reaction jd3 11:02 Drug: Calcium Gluconate 1 grams Route: IVPB; Infused Over: 60 mins; Site: left sr5 antecubital; 12:00 Follow up: Response: No adverse reaction; IV Status: Completed infusion jd3 11:05 Drug: Kayexalate 15 grams Route: PO; jd3 12:00 Follow up: Response: No adverse reaction jd3 12:24 Drug: morphine 2 mg Route: IVP; Site: left antecubital; jd3 12:24 Follow up: Response: No adverse reaction; RASS: Alert and Calm (0); RASS: Alert and jd3 Calm (0), medicated prior to transfer Intake: 11:50 IV: 500ml; Total: 500ml. jd3 11:50 IV: 100ml; Total: 600ml. jd3 Outcome: 10:15 ER care complete, transfer ordered by MD. mcmullen 12:31 Transferred by ground EMS to [facility], Transfer form completed. X-rays sent jd3 w/ patient. 12:31 Condition: stable 12:31 Instructed on the need for transfer, Demonstrated understanding of instructions. 12:31 Patient left the ED. jd3 Signatures: Dispatcher [employer] EDTyrese Ludwig MD MD rn Resecker, Sam RN RN sr5 Franko Agudelo RN RN jd3 Corrections: (The following items were deleted from the chart) 08:22 08:15 Chief complaint: EMS states: "pt reports fall 3 days ago, with sever right sided jd3 rip pain now. also reporting swelling in the left lower leg." jd3
[2020-11-05] MEDS ORDERED: LEVALBUTEROL 1.25 MG/3 ML NEB ONE (10:22)
[2020-11-05] MEDS ORDERED: NA CHLORIDE 0.9% 500 ML ONE (10:23)
[2020-11-05] MEDS ORDERED: CALCIUM GLUCONATE 1 GM IVPB 1 GM/50 ML BAG IV ONE (10:23)
[2020-11-05] MEDS ORDERED: SOD POLYSTYREN SUL 15 GM/60 ML UCUP ONE (10:23)
[2020-11-05] MEDS ORDERED: MORPHINE 2 MG/ML SYR ONE ×2 (10:48→12:38)
[2020-11-05 13:13] VITALS: TEMP 98.7
[2020-11-05 13:19] VITALS: BP 122/40; O2SAT 98
== END 2020-11-05 12:31 | disposition short-term general hospital (02) ==
LOC: ER 08:05
DX: S27.0XXA Traumatic pneumothorax, initial encounter (principal); S22.41XA Multiple fractures of ribs, right side, initial encounter for closed fracture; J18.9 Pneumonia, unspecified organism; N17.9 Acute kidney failure, unspecified; W19.XXXA Unspecified fall, initial encounter; Y93.89 Activity, other specified; Y92.9 Unspecified place or not applicable; Z79.82 Long term (current) use of aspirin; Z88.0 Allergy status to penicillin; Z88.8 Allergy status to other drugs, medicaments and biological substances
CPT/HCPCS: 87040 ×2; 85025; 80048 ×2; 36415; 85610; 82565; 85730; 71250; 74176; 99285; J2270 ×2; J0610; J7040

== ENCOUNTER 2020-11-23 15:11 | Emergency (ER) | payer OTHER ==
--- OUTSIDE RECORDS SUMMARY | 2020-11-23 15:14 | XMS REPORT | Continuity of Care Document ---
:1940 Author Organization [facility] t Address [address] [place] [address] Care Team Providers Name Role Phone 1, Lab Attending Clinician Unavailable Only, Test Attending Clinician Unavailable Payers Payer Name Policy Type Policy Number Effective Date Expiration Date S ource Problems This patient has no known problems. Allergies, Adverse Reactions, Alerts Allergy Allergy Status Severity Reaction(s) Onset Inactive Treating Comm ents Source Name Type Date Date Clinician [facility] DA Active [place] [facility] 09-[facility] [place] [facility] [place] [facility] 09-[facility] [place] [facility] [place] [facility] 09-[facility]icill DA Active [place] [facility] ins 02-12 00:00: [facility] [place] [facility] [place] [facility] 02-12 [facility]: [facility] Medications This patient has no known medications. Procedures This patient has no known procedures. Encounters Start End Encounter Admission Attending Care Care Encounter Source Date/Time Date/Time Type Type Clinicians Facility Department ID 2019-04-07 Inpatient U [facility] [id number] 07:46:00 [facility] 2019-04-06 Inpatient U [facility] 9212 [facility] 15:01:03 2020-10-31 2020-10-31 Outpatient [facility] [id number] [place] 00:00:00 00:00:[address] 2020-09-25 2020-09-25 Outpatient [facility] [id number] [place] 00:00:00 00:00:[address] 2020-08-06 2020-08-06 Letter 1, [facility] Lab [facility] [id number] 00:00:00 00:00:00 (Out) [place] [id number] [place] [id number] [place] [id number] 2020-08-01 2020-08-01 Laboratory Only, [facility] [id number] 10:03:29 10:18:29 Only Test [place] [id number] [place] [id number] [place] [id number] 2019-03-14 2019-03-14 Outpatient [facility] [id number] [place] 07:06:00 07:06:00 [facility] Results This patient has no known results.
--- NOTE | 2020-11-23 16:38 | RAD REPORT ---
EXAM DESCRIPTION: CT - Head Brain Wo Cont - 11/23/2020 4:21 pm CLINICAL HISTORY: TRAUMA Syncope, head injury COMPARISON: Head Brain Wo Cont dated 01/23/2020 TECHNIQUE: All CT scans are performed using dose optimization technique as appropriate and may inclu de automated exposure control or mA/KV adjustment according to patient size. FINDINGS: No intracranial hemorrhage, hydrocephalus or extra-axial fluid collection.Moderate general ized brain atrophy is present with moderate periventricular and deep white matter chronic microvascul ar ischemic changes.No areas of brain edema or evidence of midline shift. The paranasal sinuses and mastoids are clear. The calvarium is intact. IMPRESSION: No acute intracranial abnormality.
[2020-11-23 16:59] LABS: Arterial Blood Carboxyhemoglob 1.6 % (0-1.5); Blood O2 Saturation 88.7 % (92-98.5)
[2020-11-23 17:16] LABS: Absolute Lymphocytes (CBC) 0.1 K/uL (0.7-4.9); Basophils % 0.4 % (0-1.3); Lymphocytes % 0.8 % (15.3-44.8); MPV 8.4 fL (7.6-11.3); Protime INR 0.89; RBC Red Blood Cell Count 3.71 M/uL (3.86-4.86)
--- NOTE | 2020-11-23 17:23 | RAD REPORT ---
EXAM DESCRIPTION: RAD - Chest Single View - 11/23/2020 5:14 pm CLINICAL HISTORY: COPD Chest pain. COMPARISON: Chest Pa And Lat (2 Views) dated 01/24/2020; Chest Pa And Lat (2 Views) dated 10/19/2019; Chest Pa And Lat (2 Views) dated 01/28/2019; Chest Pa And Lat (2 Views) dated 12/28/2018 FINDINGS: Portable technique limits examination quality. Opacity in the right lung base with a small right pleural effusion is noted, chronic. Left lung is em physematous. The heart is upper limit normal in size with a tortuous thoracic aorta. Right-sided veno us catheter its tip in the SVC.
[2020-11-23 17:28] LABS: ALT/SGPT 20 U/L (12-78); AST/SGOT 22 U/L (15-37); Albumin 2.7 g/dL (3.4-5.0); Alkaline Phosphatase 118 U/L (45-117); BUN Blood Urea Nitrogen 35 mg/dL (7-18); Bicarbonate 26 mmol/L (21-32); Bilirubin Direct < 0.1 mg/dL (0-0.2); Bilirubin Total 0.2 mg/dL (0.2-1.0); Glucose Level 104 mg/dL (74-106); NT PRO-BNP 16926 pg/mL (<450); Potassium 4.9 mmol/L (3.5-5.1); Protein, Total 7.5 g/dL (6.4-8.2); Sodium Level 139 mmol/L (136-145); Troponin (Emerg Dept Use Only) 0.03 ng/mL (0.0-0.045)
--- NOTE | 2020-11-23 19:42 | ER ---
Nurse's Notes [facility] Name: Ninfa Olsen Age: 80 yrs Sex: Female : 1940 Arrival Date: 11/23/2020 Time: 15:14 Bed 5 Private MD: Diagnosis: Syncope and collapse;Abnormal electrocardiogram [ECG] [EKG];Nonrheumatic aortic (valve) stenosis with insufficiency Presentation: 11/23 15:23 Chief complaint: EMS states: SYNCOPE EN ROUTE TO DIALYSIS. Coronavirus screen: At this bp time, the client does not indicate any symptoms associated with coronavirus-19. Ebola Screen: No symptoms or risks identified at this time. Initial Sepsis Screen: Does the patient meet any 2 criteria? No. Patient's initial sepsis screen is negative. Does the patient have a suspected source of infection? No. Patient's initial sepsis screen is negative. Risk Assessment: Do you want to hurt yourself or someone else? Patient reports no desire to harm self or others. Onset of symptoms was November 23, 2020 at 15:00. 15:23 Method Of Arrival: EMS: [facility] bp 15:23 Acuity: RILEY 3 bp Triage Assessment: 15:26 General: Appears in no apparent distress. comfortable, slender, Behavior is bp cooperative, appropriate for age, drowsy. Pain: Denies pain. EENT: No deficits noted. Neuro: Level of Consciousness is awake, obeys commands, lethargic, Oriented to Appropriate for age. Cardiovascular: Rhythm is sinus rhythm. Respiratory: No deficits noted. GI: No signs and/or symptoms were reported involving the gastrointestinal system. : No signs and/or symptoms were reported regarding the genitourinary system. Derm: No deficits noted. Musculoskeletal: No deficits noted. Injury Description: LEFT ELBOW SKIN TEAR. Historical: - Allergies: 15:26 Benicar; bp 15:26 PENICILLINS; bp - Home Meds: 15:26 allopurinol 100 mg Oral tab 1 tab once daily [Active]; aspirin 81 mg Oral TbEC 1 tab bp once daily [Active]; atorvastatin 20 mg Oral tab 1 tab once daily [Active]; carbidopa-levodopa 25/200 mg 1 tab at 1530 and 1 tab at bedtime Oral tab [Active]; clonidine HCl 0.1 mg Oral tab 3 tabs [Active]; gabapentin Oral [Active]; hydralazine 25 mg Oral tab 1 tab 2 times per day [Active]; levothyroxine 25 mcg tab 1 tab once daily [Active]; trelegy INH [Active]; - PMHx: 15:26 COPD; High Cholesterol; Hypertension; bp - Immunization history:: Adult Immunizations up to date. - Social history:: Smoking status: unknown. Screenin:29 Abuse screen: Denies threats or abuse. Denies injuries from another. Nutritional bp screening: No deficits noted. Tuberculosis screening: No symptoms or risk factors identified. Fall Risk Fall in past 12 months (25 points). No secondary diagnosis (0 pts). No IV (0 pts). Ambulatory Aid- None/Bed Rest/Nurse Assist (0 pts). Gait- Weak (10 pts.). Mental Status- Oriented to own ability (0 pts). Total Segundo Fall Scale indicates Low Risk Score (25-44 pts). Fall prevention measures have been instituted. Side Rails Up X 2 Placed close to Nursing Station Frequent Obs/Assesments occuring As available Patient and Family Educated on Fall Prevention Program and strategies. Assessment: 15:29 General: SEE TRIAGE NOTE. bp 18:02 Reassessment: No changes from previously documented assessment. ALL CURRENT ORDERS bp COMPLETED. Neuro: Level of Consciousness is lethargic, Oriented to Appropriate for age. 19:15 General: Appears slender, Behavior is drowsy. Pain: Denies pain. Neuro: Level of ea Consciousness is lethargic, Oriented to person, place. Cardiovascular: Patient's skin is warm and dry. Respiratory: Airway is patent Respiratory effort is even, unlabored, Respiratory pattern is regular, symmetrical. Respiratory: Pt currently on O2 at 2L per nasal cannula. GI: Abdomen is round. Derm: Skin is fragile, is thin, has skin tears on left forearm and left lower extremity Skin is dry. 20:00 Reassessment: Patient and/or family updated on plan of care and expected duration. Pain ea level reassessed. Pt resting with eyes closed, respirations even and unlabored, chest expansions even and symmetrical. at bedside. 21:20 Reassessment: Patient and/or family updated on plan of care and expected duration. Pain ea level reassessed. Pt resting with eyes closed, respirations even and unlabored, chest expansions even and symmetrical. at bedside. 22:54 Reassessment: Pt resting with eyes closed, respirations even and unlabored, chest ea expansions even and symmetrical. Awaiting on [facility] ambulance. 11/24 00:20 Reassessment: Patient and/or family updated on plan of care and expected duration. Pain ea level reassessed. Pt resting with eyes closed respirations even and unlabored, chest expansions even and symmetrical. EMS at facility for transfer, report given to EMS. Pt left ED via stretcher per EMS. Vital Signs: 11/23 15:23 BP 150 / 77; Pulse 98; Resp 19; Temp 99.2; Pulse Ox 98% on 10% Non-rebreather mask; bp 16:50 BP 106 / 52; Pulse 97; Resp 11; Pulse Ox 93% ; bp 18:01 BP 105 / 47; Pulse 90; Resp 27; Pulse Ox 93% ; bp 18:55 BP 111 / 53; Pulse 90; Resp 26; Pulse Ox 96% ; bp 19:00 BP 111 / 48; Pulse 83; Resp 18; Pulse Ox 97% 2 lpm ; ea 22:55 BP 95 / 48; Pulse 75; Resp 20; Temp 100.6; Pulse Ox 97% ; ea 22:57 BP 103 / 73; ea 11/24 00:15 BP 105 / 50; Pulse 68; Resp 20; Temp 98.2; Pulse Ox 98% on 2 lpm NC; ea ED Course: 11/23 15:14 Patient arrived in ED. am2 15:22 Alvaro Rodney, RN is Primary Nurse. bp 15:24 Triage completed. bp 15:26 Arm band placed on. bp 15:29 Patient has correct armband on for positive identification. Bed in low position. Call bp light in reach. Side rails up X2. 15:30 Jos Griggs PA is PHCP. jr8 15:30 Alan Basurto MD is Attending Physician. jr8 15:49 EKG done, by ED staff, reviewed by Jos GONSALES. em1 16:21 CT Head Brain wo Cont In Process Unspecified. EDMS 16:42 Radiology exam delayed due to patient is not appropriately dressed for the exam at this jk time. 16:50 Inserted saline lock: 20 gauge in right antecubital area, using aseptic technique. bp Blood collected. 17:08 XRAY Chest (1 view) In Process Unspecified. EDMS 19:33 Humphrey Moscoso MD is Hospitalizing Provider. jr8 19:40 Straight cath inserted, using sterile technique, 16 Fr. Specimen obtained. Returned ea yellow urine. Patient tolerated well. 19:57 No provider procedures requiring assistance completed. Patient admitted, IV remains in ea place. 20:06 Initiated transfer at [facility] with Kirstie. tt3 20:20 Kirstie called back to verify physicians names from pts previous stay. tt3 20:27 Kirstie May gave admin approval. The accepting physician is Dr. Pittman. The pt is tt3 going to [facility] IMU. Nurse to call report to . Face sheet and MOT faxed to per Kirstie's request. Administered Medications: 21:52 Drug: NS 0.9% 250 ml Route: IV; Rate: 1 bolus; Site: right antecubital; ea 11/24 00:00 Follow up: Response: No adverse reaction; IV Status: Completed infusion; IV Intake: ea 250ml 11/23 22:58 Drug: Tylenol Suppository 650 mg Route: ME; ea 11/24 00:00 Follow up: Response: No adverse reaction ea Intake: 00:00 IV: 250ml; Total: 250ml. ea Outcome: 11/23 19:42 Decision to Hospitalize by Provider. jr8 19:58 Instructed on the need for admit. ea 20:50 ER care complete, transfer ordered by . jr8 11/24 00:21 Transferred by ground EMS to [facility], Transfer form completed. ea Condition: stable 00:22 Patient left the ED. ea Signatures: Dispatcher [employer] EDBubba Jose em1 Jos Griggs PA PA jr8 Roxann Millard am2 Carolina Hsu RN RN Alvaro Judd RN RN bp Knight, Jason jk Trim, Tyler tt3
--- NOTE | 2020-11-23 19:42 | EDPHYS ---
Physician Documentation [facility] Name: Ninfa Olsen Age: 80 yrs Sex: Female : 1940 Arrival Date: 11/23/2020 Time: 15:14 Bed 5 Private MD: ED Physician Alan Basurto HPI: 11/23 15:41 This 80 yrs old Female presents to ER via EMS with complaints of Fall Injury. jr8 15:41 Details of fall: The patient fell from an upright position, while walking. Onset: The jr8 symptoms/episode began/occurred suddenly. Patient presents for fall but is very lethargic and sleepy in interview. She reports she was sleepy before fall and fell because she tripped. She reports hx of CKD and COPD with home O2 use. She said she was going to dialysis today and said she went yesterday. She denies any pain. . Historical: - Allergies: 15:26 Benicar; bp 15:26 PENICILLINS; bp - Home Meds: 15:26 allopurinol 100 mg Oral tab 1 tab once daily [Active]; aspirin 81 mg Oral TbEC 1 tab bp once daily [Active]; atorvastatin 20 mg Oral tab 1 tab once daily [Active]; carbidopa-levodopa 25/200 mg 1 tab at 1530 and 1 tab at bedtime Oral tab [Active]; clonidine HCl 0.1 mg Oral tab 3 tabs [Active]; gabapentin Oral [Active]; hydralazine 25 mg Oral tab 1 tab 2 times per day [Active]; levothyroxine 25 mcg tab 1 tab once daily [Active]; trelegy INH [Active]; - PMHx: 15:26 COPD; High Cholesterol; Hypertension; bp - Immunization history:: Adult Immunizations up to date. - Social history:: Smoking status: unknown. ROS: 15:46 Constitutional: Positive for fatigue. jr8 15:46 Respiratory: Positive for shortness of breath, at rest. 20:31 Cardiovascular: Negative for chest pain, palpitations, and edema, Respiratory: Negative jr8 for shortness of breath, cough, wheezing, and pleuritic chest pain. 20:31 Neuro: Positive for syncope. 20:31 All other systems are negative. Exam: 15:47 Constitutional: The patient appears lethargic. jr8 15:47 Cardiovascular: Rate: tachycardic, Rhythm: regular, Pulses: Pulses are 1+ in right radial artery and left radial artery. Heart sounds: normal, Edema: is not appreciated, Dialysis shunt: in the R SC chest. 15:47 Respiratory: moderate respiratory distress is noted, Respirations: tachypnea, 30 Breath sounds: decreased breath sounds, Respiratory rate: 30 15:47 Abdomen/GI: Inspection: distension, that is moderate. 15:47 Neuro: Orientation: to person, situation, Not oriented to place. 19:22 ENT: Nares patent. No nasal discharge, no septal abnormalities noted. Tympanic jr8 membranes are normal and external auditory canals are clear. Oropharynx with no redness, swelling, or masses, exudates, or evidence of obstruction, uvula midline. Mucous membranes moist. Neck: Trachea midline, no thyromegaly or masses palpated, and no cervical lymphadenopathy. Supple, full range of motion without nuchal rigidity, or vertebral point tenderness. No Meningismus. MS/ Extremity: Pulses equal, no cyanosis. Neurovascular intact. Full, normal range of motion. 19:22 ECG was reviewed by the Attending Physician. Vital Signs: 15:23 BP 150 / 77; Pulse 98; Resp 19; Temp 99.2; Pulse Ox 98% on 10% Non-rebreather mask; bp 16:50 BP 106 / 52; Pulse 97; Resp 11; Pulse Ox 93% ; bp 18:01 BP 105 / 47; Pulse 90; Resp 27; Pulse Ox 93% ; bp 18:55 BP 111 / 53; Pulse 90; Resp 26; Pulse Ox 96% ; bp 19:00 BP 111 / 48; Pulse 83; Resp 18; Pulse Ox 97% 2 lpm ; ea 22:55 BP 95 / 48; Pulse 75; Resp 20; Temp 100.6; Pulse Ox 97% ; ea 22:57 BP 103 / 73; ea 11/24 00:15 BP 105 / 50; Pulse 68; Resp 20; Temp 98.2; Pulse Ox 98% on 2 lpm NC; ea MDM: 11/23 15:30 Patient medically screened. jr8 15:53 Data reviewed: vital signs, nurses notes, lab test result(s), EKG, radiologic studies. jr8 Data interpreted: multiple drill operator: rate is 95 beats/min, Pulse oximetry: on 2L(s) per nasal canula. Data interpreted: Pulse oximetry: is 94 %. Interpretation: acceptable. 19:28 Counseling: I had a detailed discussion with the patient and/or guardian regarding: the jr8 historical points, exam findings, and any diagnostic results supporting the discharge/admit diagnosis, lab results, radiology results, the need for further work-up and treatment in the hospital. 20:31 ED course: of patient stated that she was in [place] for several days for jr8 pneumothorax. She originally had fallen but went to our hospital after a couple of days because he noticed that she started to become altered. Today had syncopal episode and was followed by altered mentation. Stated that she was worked up at [place] for the pneumo but subsequently was found to have severe . CT surgery and cardiology wanted her to have surgery while she was there but patient wanted to go home for a week and then go back for surgery. This was relayed to [place] who accepted patient for continuity of care . 11/23 15:41 Order name: Basic Metabolic Panel [facility] 11/23 15:41 Order name: CBC with Diff; Complete Time: 17:28 8 11/23 15:41 Order name: LFT's; Complete Time: 17:43 8 11/23 15:41 Order name: Magnesium; Complete Time: 17:43 8 11/23 15:41 Order name: NT PRO-BNP; Complete Time: 17:43 8 11/23 15:41 Order name: PT-INR; Complete Time: 17:43 11/23 15:41 Order name: Troponin (emerg Dept Use Only); Complete Time: 17:43 11/23 15:41 Order name: ABG 11/23 15:44 Order name: Basic Metabolic Panel; Complete Time: 17:43 EDMS 11/23 17:50 Order name: Urine Microscopic Only; Complete Time: 20:08 11/23 19:07 Order name: SARS-COV-2 RT PCR; Complete Time: 19:11 EDMS 11/23 19:55 Order name: Urine Dipstick--Ancillary (enter results); Complete Time: 19:59 tt3 11/23 15:41 Order name: XRAY Chest (1 view); Complete Time: 17:28 11/23 15:41 Order name: EKG; Complete Time: 15:44 jr8 19 15:41 Order name: Cardiac monitoring; Complete Time: 16:53 11/23 15:41 Order name: EKG - Nurse/Tech; Complete Time: 15:49 11/23 15:41 Order name: IV Saline Lock; Complete Time: 16:53 11/23 15:41 Order name: Labs collected and sent; Complete Time: 16:53 11/23 15:41 Order name: O2 Per Protocol; Complete Time: 15:49 11/23 15:41 Order name: O2 Sat Monitoring; Complete Time: 15:49 11/23 15:53 Order name: CT Head Brain wo Cont; Complete Time: 16:57 11/23 15:53 Order name: Straight Cath - Urine; Complete Time: 19:52 EC:22 Rate is 95 beats/min. Rhythm is regular, Sinus Rhythm. Left axis deviation noted. SD jr8 interval is normal at 116 msec. QRS interval is normal at 106 msec. QT interval is normal. No Q waves. T waves are Inverted in leads V1, V2, V3. ST Segment is depressed in leads V3, V4, <1mm. Clinical impression: Cardiac ischemia. Interpreted by me. Reviewed by me. Administered Medications: 21:52 Drug: NS 0.9% 250 ml Route: IV; Rate: 1 bolus; Site: right antecubital; ea 11/24 00:00 Follow up: Response: No adverse reaction; IV Status: Completed infusion; IV Intake: ea 250ml 11/23 22:58 Drug: Tylenol Suppository 650 mg Route: SD; ea 11/24 00:00 Follow up: Response: No adverse reaction ea Disposition: 11/23/20 20:50 Transfer ordered to [facility]. Diagnosis are Syncope and collapse, Abnormal electrocardiogram [ECG] [EKG], Nonrheumatic aortic (valve) stenosis with insufficiency. - Reason for transfer: Higher level of care. - Accepting physician is Dr. Pittman. - Condition is Fair. - Problem is new. - Symptoms are unchanged. Addendum: 11/25/2020 01:11 Co-signature as Attending Physician, Alan Basurto MD I agree with the assessment and k dr plan of care. Signatures: Dispatcher [employer] [facility] Rittger, AlanMD MD ben Josh, PA PA jr8 Cal Marie, BURR FILER-C BURR FILER-Cla1 Carolina Hsu, RN RN Alvaro Judd, RN RN bp Corrections: (The following items were deleted from the chart) 11/23 18:21 17:52 CORONAVIRUS+ ordered. EDMS EDMS 20:07 19:42 Hospitalization Ordered by Humphrey Moscoso MD for Inpatient Admission. Preliminary jr8 diagnosis is Syncope and collapse; Abnormal electrocardiogram [ECG] [EKG]. Bed requested for Telemetry/MedSurg (Inpatient). Status is Inpatient Admission. Condition is Fair. Problem is new. Symptoms are unchanged. jr8 20:49 20:31 ED course: of patient stated that she was in [place] for several days for jr8 pneumothorax. Stated that she was worked up and subsequently . jr8 11/24 00:22 11/23 20:50 11/23/2020 20:50 Transfer ordered to [facility]. Diagnosis is ea Syncope and collapse; Abnormal electrocardiogram [ECG] [EKG]; Nonrheumatic aortic (valve) stenosis with insufficiency. Reason for transfer: Higher level of care. Accepting physician is Dr. Pittman. Condition is Fair. Problem is new. Symptoms are unchanged. jr8
[2020-11-23 19:58] LABS: Urine Blood NEGATIVE (NEG); Urine Glucose NEGATIVE (NEG); Urine Protein 3+ (NEG)
[2020-11-23 20:06] LABS: Urine Waxy Casts 0-5 /LPF (NONE SEEN)
[2020-11-23 20:07] LABS: Urine Amorphous Sediment 2+ /HPF (NONE SEEN); Urine Bacteria <20 /HPF (<20); Urine RBC <5 /HPF (NONE SEEN)
[2020-11-23] MEDS ORDERED: NA CHLORIDE 0.9% 250 ML ONE (21:59)
[2020-11-23] MEDS ORDERED: ACETAMINOPHEN 650MG/RECT SUPP PR ONE (23:04)
[2020-11-24 02:07] VITALS: BP 105/50; TEMP 98.2; O2SAT 98
== END 2020-11-24 00:22 | disposition short-term general hospital (02) ==
LOC: ER 15:11
DX: I35.2 Nonrheumatic aortic (valve) stenosis with insufficiency (principal); R94.31 Abnormal electrocardiogram [ECG] [EKG]; Z20.822 Contact with and (suspected) exposure to COVID-19; I10 Essential (primary) hypertension; E78.00 Pure hypercholesterolemia, unspecified; J44.9 Chronic obstructive pulmonary disease, unspecified; Z79.82 Long term (current) use of aspirin; Z88.0 Allergy status to penicillin; Z88.8 Allergy status to other drugs, medicaments and biological substances; Z99.81 Dependence on supplemental oxygen
CPT/HCPCS: 96365; 93005; 85025; 80048; 36415; 83735; 85610; 80076; 84484; 83880; 70450; 71045; 82805; 51702; 99285; 96366; U0003; J7050; 81003; 81015

== ENCOUNTER 2020-12-04 00:10 | Emergency (ER) | payer OTHER ==
--- OUTSIDE RECORDS SUMMARY | 2020-12-04 00:13 | XMS REPORT | Continuity of Care Document ---
:1940 Author Organization [facility] t Address [address] [place] [address] Care Team Providers Name Role Phone 1, Adc Lab Attending Clinician Unavailable Only, Test Attending Clinician Unavailable Payers Payer Name Policy Type Policy Number Effective Date Expiration Date S ource Problems This patient has no known problems. Allergies, Adverse Reactions, Alerts Allergy Allergy Status Severity Reaction(s) Onset Inactive Treating Comm ents Source Name Type Date Date Clinician Penicill DA Active [facility] 09-[facility]: [facility] [place] [facility] 09-30 00:00: [facility] [place] [facility] an 09-30 00:00: [facility] Penicill DA Active [facility] ins 02-12 00:00: [facility] [place] [facility] an 02-12 00:00: [facility] Medications This patient has no known medications. Procedures This patient has no known procedures. Encounters Start End Encounter Admission Attending Care Care Encounter Source Date/Time Date/Time Type Type Clinicians Facility Department ID 2019-04-07 Inpatient U [facility] [id number] 07:46:00 [facility] 2019-04-06 Inpatient U [facility] 9212 [facility] 15:01:03 2020-10-31 2020-10-31 Outpatient [facility] [id number] [place] 00:00:00 00:00:[address] 2020-09-25 2020-09-25 Outpatient [facility] [id number] [place] 00:00:00 00:00:[address] 2020-08-06 2020-08-06 Letter 1, [facility] Lab [facility] [id number] 00:00:00 00:00:00 (Out) [place] [id number] [place] [id number] [place] [id number] 2020-08-01 2020-08-01 Laboratory Only, [facility] [id number] 10:03:29 10:18:29 Only Test [place] [id number] [place] [id number] [place] [id number] 2019-03-14 2019-03-14 Outpatient [facility] [id number] 07:06:00 07:06:00 [facility] Results This patient has no known results.
--- NOTE | 2020-12-04 00:26 | ER ---
Nurse's Notes [facility] Name: Ninfa Olsen Age: 80 yrs Sex: Female : 1940 Arrival Date: 12/04/2020 Time: 00:17 Bed 4 Private MD: Diagnosis: Cardiac arrest Presentation: 12/04 00:10 Care prior to arrival: ET 7.5 from EMS CPR performed by EMS IV initiated. intraosseous rr5 left lower leg. 00:15 Chief complaint: EMS states: according to the the patient got discharge from [address] for the placement of pacemaker. around 5 PM she was hungry ate some dinner then vomited complaint getting weaker and weaker. went to the bathroom had a BM assist going to living room then collapse. CPR started 2329H,shock 1x, Epinephrine x4. 00:15 Coronavirus screen: unable to complete. Ebola Screen: Unable to complete the Ebola 5 screening because:. Initial Sepsis Screen:. Onset of symptoms was December 03, 2020 at 23:29. 00:15 Method Of Arrival: EMS: [facility] rr5 00:15 Acuity: RILEY 1 rr5 Historical: - Allergies: 00:25 Benicar; rr5 00:25 PENICILLINS; rr5 - PMHx: 00:25 COPD; High Cholesterol; Hypertension; rr5 - Immunization history:: Adult Immunizations unknown. - Social history:: Smoking status: unknown. Assessment: 00:10 CPR assessment: intubated, Ambu ventilation, pale, pulses absent w/ compressions. rr5 Cardiac rhythm is paced rhythm. 00:10 General: came in CPR on progress by EMS. no pulse on palpation on pace rhythm, no rr5 respiration. continue CPR as per ACLS protocol. 00:13 Reassessment: NAHUM pronounced by Dr. Navas. ea 00:48 Reassessment: . ea 01:03 Reassessment: SHAYNE arrived. rr5 01:59 Reassessment: Chemical Pumper at bedside. ea 02:10 Reassessment: V/O from Judge Beltran to DC all life saving equipment from the patient, sg the patient will not be going to the [place] at this time. 03:18 Reassessment: Undertaker at bedside for transfer to [place]. ea Vital Signs: 00:15 Pulse 60; Resp 0; rr5 01:00 Pulse 0; Resp 0; rr5 00:15 pace rhythm rr5 ED Course: 00:17 Patient arrived in ED. tw4 00:24 Triage completed. rr5 00:25 Gage Navas MD is Attending Physician. tw4 00:25 Gage Navas MD is Pronouncing Provider. tw4 00:25 Arm band placed on right wrist. rr5 00:26 Carolina Hsu, RN is Primary Nurse. ea Administered Medications: No medications were administered Outcome: 00:12 Patient : Time of 00:12 rr5 00:12 Condition: 03:19 Patient left the ED. ea Signatures: Drew Smith RN ANA Carolina Hsu, RN RN Gage Shepard MD MD tw4 Humphrey Lockhart RN RN rr5 Corrections: (The following items were deleted from the chart) 00:34 00:19 CPR assessment: intubated, Ambu ventilation, pale, pulses absent w/ compressions, rr5 ea 00:34 00:19 Cardiac rhythm is paced rhythm ea rr5
--- NOTE | 2020-12-05 03:21 | EDPHYS ---
Physician Documentation [facility] Name: Ninfa Olsen Age: 80 yrs Sex: Female : 1940 Arrival Date: 12/04/2020 Time: 00:17 Bed 4 Private MD: ED Physician Gage Navas HPI: 12/04 03:23 This 80 yrs old Female presents to ER via EMS with complaints of CPR. tw4 03:23 Preceding the arrest, the patient collapsed, was dyspneic. The arrest occurred at home. tw4 Pre-hospital course: The arrest was witnessed by family. Bystanders at the scene did not perform CPR. EMS care prior to arrival: initiation of ACLS, intubation was successfully performed, oxygen, 100% by ET tube. C-collar, EMS call time was. The patient has not experienced similar symptoms in the past. Historical: - Allergies: 00:25 Benicar; rr5 00:25 PENICILLINS; rr5 - PMHx: 00:25 COPD; High Cholesterol; Hypertension; rr5 - Immunization history:: Adult Immunizations unknown. - Social history:: Smoking status: unknown. ROS: 03:23 Constitutional: Positive for tw4 03:23 Unable to obtain ROS due to comatose state, patient is on ventilator. Exam: 03:23 Constitutional: The patient appears comatose. tw4 03:23 Cardiovascular: active CPR no pulse. 03:23 Respiratory: pt being bagged. 03:23 Neuro: Mentation: unresponsive. Vital Signs: 00:15 Pulse 60; Resp 0; rr5 01:00 Pulse 0; Resp 0; rr5 00:15 pace rhythm rr5 Procedures: 03:31 CPR: See CPR flow sheet. Initial patient assessment: unresponsive, pale, intubated, The tw4 presenting cardiac rhythm is PEA. the patient was intubated prior to arrival, Compressions: began prior to arrival. CPR was stopped at 00:12. MDM: 00:25 Patient medically screened. tw4 03:31 Data reviewed: vital signs, nurses notes. tw4 Administered Medications: No medications were administered Disposition: Patient pronounced on 12/04/20 00:12 by Gage Navas. Impression: Cardiac arrest. - Released to Home. Signatures: Carolina Hsu RN RN ea Wadley, Terrence, MD MD tw4 Humphrey Lockhart RN RN rr5 Corrections: (The following items were deleted from the chart) 03:19 00:25 12/04/2020 00:25 Patient pronounced on 12/04/2020 at 00:12 by Gage Navas. ea Impression: Cardiac arrest. Released to Home. tw4
== END 2020-12-04 03:19 | disposition expired ==
LOC: ER 00:10
PROC: 5A12012 Performance of Cardiac Output, Single, Manual (ICD-10-PCS; principal; 2020-12-04)
DX: I46.9 Cardiac arrest, cause unspecified (principal); I10 Essential (primary) hypertension; Z88.0 Allergy status to penicillin; Z88.8 Allergy status to other drugs, medicaments and biological substances
CPT/HCPCS: 92950; 99285